=== PATIENT | female | born 1970 | race Caucasian/White ===

== ENCOUNTER 2023-06-02 12:54 | Inpatient (IN) ==
[2023-06-02] MEDS: ONDANSETRON INJ 2 MG/ML 2 ML VIAL IV STA ×2 (13:29→15:07)
[2023-06-02] MEDS: SODIUM CHLORIDE 0.9% 1,000 ML IV SCH (13:29)
[2023-06-02 13:38] LABS: Appearance Urine Clear (Clear); Bacteria Urine Automated Negative (Negative); Bilirubin Urine Negative (Negative); Blood Urine Negative (Negative); Cast Urine Automated 0 /lpf (0-5); Color Urine Yellow; Glucose Urine UA Negative (Negative); Ketones Urine Trace (Negative); Leukocyte Esterase Urine Negative (Negative); Nitrite Urine Negative (Negative); Protein Urine 1+ (Negative); RBC Urine Automated 0-4 /hpf (0-4); Specific Gravity Urine 1.021 (1.000-1.030); Urobilinogen Urine Negative (Negative); WBC Urine Automated 0 /hpf (0-5); pH Urine 6.5 (4.5-7.5)
[2023-06-02 13:46] LABS: Basophils # (auto) 0.02 K/uL (0.00-0.20); Basophils % (auto) 0.3 %; Eosinophils # (auto) 0.05 K/uL (0.00-0.50); Eosinophils % (auto) 0.7 %; Hemoglobin 13.2 g/dl (12.0-16.0); Immature Granulocytes # (auto) 0.03 K/uL (0.01-0.20); Immature Granulocytes % (auto) 0.4 %; Lymphocytes # (auto) 1.51 K/uL (1.20-3.40); Lymphocytes % (auto) 20.5 %; Mean Corpuscular Hemoglobin 31.6 pg (25.0-34.0); Mean Corpuscular Hgb Conc 33.8 g/dL (32.0-36.0); Mean Corpuscular Volume 93.3 fL (80.0-100.0); Mean Platelet Volume 10.8 fL (9.4-12.4); Monocytes % (auto) 5.4 %; Neutrophils # (auto) 5.34 K/uL (1.40-6.50); Neutrophils % (auto) 72.7 %; Platelet Count 279 K/uL (130-400); RDW Coefficient of Variation 12.4 % (11.5-14.5); RDW Standard Deviation 42.4 fL (36.4-46.3); Red Blood Count 4.18 M/uL (4.20-5.40); White Blood Count 7.35 K/ul (4.8-10.8)
[2023-06-02 14:02] LABS: BUN Creatinine Ratio 16.7 (10-20); Calcium 10.1 mg/dl (8.6-10.3); Creatinine Clr Calc Pharmacy 87.1 ml/min; Est GFR (African American) 101.3 ml/min; Est GFR (Non-African American) 87.4 ml/min; Potassium 4.1 mmol/L (3.5-5.1)
--- NOTE | 2023-06-02 14:04 | Emergency Department Note ---
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 She had Whipple surgery in 2018 done in [facility] in [place] she still follows with them. She said 6 months to 1 year after the surgery. she had a pelvic mass that was treated with a gamma knife. She is been cancer free for 6 years since then. She moved here in November and is followed by [facility] provider. She woke up this morning at 630 and had epigastric and back pain she has vomited twice has been yellowish-green and has had some nausea. She had a similar episode last year in August and was diagnosed with a partial bowel obstruction likely due to adhesions at the time. She had did not have a surgery at the time. Denies fever. She has had pancreatitis in the past as well. Last bowel movement this morning look normal. No chest pain or shortness of breath. No fall or trauma or injury. No urinary symptoms such as dysuria or hematuria. She is postmenopausal Home Medications Medication Instructions Recorded Confirmed Type Lactobacillus acidophilus 1 1,000 mmu cells PO DAILY 03/04/23 06/02/23 History billion cell capsule (Probiotic Gold Acidophilus) black seed 1,250 mg PO DAILY 03/04/23 06/02/23 History cholecalciferol (vitamin D3) 50 50 mcg PO DAILY 03/04/23 06/02/23 History mcg (2,000 unit) capsule krill oil 500 mg capsule 500 mg PO BID 03/04/23 06/02/23 History zsvisv-[id number] 2 cap PO QID 03/04/23 06/02/23 History 36,000-114,000-180,000 unit capsule,delay rel (Creon) multivitamin (Multiple Vitamins 1 tab PO DAILY 03/04/23 06/02/23 History tablet) pantoprazole 40 mg tablet,delayed 40 mg PO BID PRN Other 03/04/23 06/02/23 History release Allergies Allergy/AdvReac Type Severity Reaction Status Date / Time Penicillins AdvReac Intermediate unsure Verified 03/04/23 07:51 Past Med/Surg History Medical History Kidney congenitally absent, right Pancreatitis April 2015 Discoid lupus Basal cell carcinoma S/P MOHs (L ankle and L upper back 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 diagnosis - Ampulla of Vater - s/p whipple 2018 Bone Met L posterior Pelvis 2020 - s/p cyberknife Surgical History History of vein stripping 2006 History of Whipple procedure Dec 2017 Family History Mother Non-Hodgkin lymphoma Heart disease Father Alcohol abuse Brain tumor Social History Smoking Status: Never smoker Tobacco Type: Cigarettes Age Started Using Tobacco: 17; Age Quit Using Tobacco: 47; packs per day: 0.50; Second Hand Exposure: No; Do You Dip or Chew Tobacco: No; Tobacco Cessation Education Requested by Patient: No Hx Alcohol Use: No Hx Substance Use: No Preferred Language: Mexican Communication Ability: Effective Visual Impairment: Diminished Hearing Ability: Normal Metaphysics Teacher Required: No Beliefs That Will Affect Care: None marital status: Current Living Situation: Spouse current occupational status: retired 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 Other Information That Helps Us Care for You: No Feels Safe at Home: No Is there a partner from a previous relationship who is making you feel unsafe now?: No Any Concerns about Your Family Situation: No Safety Concerns: Feels Safe At This Time Childhood Exposure to Second-Hand Smoke: Yes Diet: regular caffeine: Yes Dental Care, Regularly: No Physical Activity Frequency: Daily Physical Activity Frequency Comment: active lifestyle Seatbelt Use: always Sunscreen Use: Yes Do you think of yourself as: straight/heterosexual Assistive Devices: Glasses Review of Systems A total of 10 systems reviewed and were otherwise negative Physical Exam Vital Signs Vital Signs - 24 hr 06/02/23 12:58 06/02/23 15:13 06/02/23 15:15 Temperature 36.4 C L Temperature Source Temporal Artery Scan Pulse Rate 81 58 L Pulse Rate [Finger] 61 Respiratory Rate 16 18 Respiratory Effort / Characteristics Non-Labored Spontaneous Non-Labored Spontaneous Respiratory Depth Normal Normal Respiratory Pattern Regular Blood Pressure 179/93 H Blood Pressure [Right Arm] 152/85 H Blood Pressure Mean 121 Blood Pressure Mean [Right Arm] 107 Blood Pressure Position [Right Arm] Sitting Pulse Oximetry 100 100 Oxygen Delivery Method Room Air Room Air Sepsis Recent Fever Within 48 Hours No Sepsis New/Unexplained Change in Mental Status No Sepsis Action Taken by Nursing No Action Required General: Well developed well nourished middle-age female who appears in no acute distress, breathing comfortably on room air. Normal speech HEENT: Normal cephalic atraumatic. Pupils are equal round and reactive to light. Extraocular movements are intact. Oropharynx is pink with moist mucous membranes. No swelling of the mouth lips or tongue. Neck: Supple with a midline trachea. No meningeal signs or stiffness, no JVD or bruits. No Stridor. Chest: Clear to auscultation bilaterally. No wheezes or rhonchi. No increased work of breathing. Heart: Regular rate and rhythm without murmurs or gallops. Abdomen: Soft nontender, nondistended without rebound guarding or rigidity. Extremities: No cyanosis clubbing or edema. No calf tenderness or assymetry Spine/Back. Non tender to palpation. No CVA tenderness Skin: Good turgor without rashes. Neurologic exam: Cranial nerves two through 12 are intact. Motor and sensation are intact and symmetrical throughout. Course Administered Medications Lipase/Protease/Amylase (Pancreaze (Lipase 10,500u) Cap) 2 cap PO TID [facility] Stop: 07/02/23 20:59 Last Admin: 06/02/23 19:51 Dose: Not Given Documented By: ADZ Enoxaparin Sodium (Enoxaparin Inj 40 Mg/0.4 Ml Syr) 40 mg SQ Q24H LIZA Stop: 07/02/23 15:59 Last Admin: 06/02/23 16:16 Dose: 40 mg Documented By: SAHARA Hydromorphone HCl (Hydromorphone Inj 0.5 Mg/0.5 Ml Syr) 0.5 mg IV Q4H PRN PRN Reason: Moderate Pain (4,5,6) on NRS Stop: 06/16/23 15:36 Last Admin: 06/02/23 17:58 Dose: 0.5 mg Documented By: JACOBY Parenteral Electrolytes (Plasma-Lyte A Ph 7.4) 1,000 mls @ 150 mls/hr IV .Q6H40M LIZA Stop: 07/02/23 15:44 Last Admin: 06/02/23 16:16 Dose: 150 mls/hr Documented By: SAHARA Morphine Sulfate (Morphine Sulfate 2 Mg/Ml Carp) 2 mg IV NOW STA Stop: 06/02/23 19:45 Last Admin: 06/02/23 19:50 Dose: 2 mg Documented By: AYAAN Discontinued Medications Hydromorphone HCl (Hydromorphone Inj 1 Mg/Ml Syringe) 1 mg IV NOW STA Stop: 06/02/23 14:51 Last Admin: 06/02/23 15:06 Dose: 1 mg Documented By: JEEVAN Sodium Chloride (Nss) 1,000 mls @ 999 mls/hr IV .Q1H1M LIZA Stop: 06/02/23 14:30 Last Infusion: 06/02/23 14:48 Dose: Infused Documented By: Admin: 06/02/23 13:29 Dose: 999 mls/hr Documented By: BLAINE Sodium Chloride (Nss) 1,000 mls @ 999 mls/hr IV .Q1H1M ONE Stop: 06/02/23 15:50 Last Infusion: 06/02/23 16:15 Dose: Infused Documented By: Admin: 06/02/23 15:08 Dose: 999 mls/hr Documented By: JEEVAN Morphine Sulfate (Morphine Sulfate 2 Mg/Ml Carp) 2 mg IV NOW STA Stop: 06/02/23 13:59 Last Admin: 06/02/23 14:11 Dose: 2 mg Documented By: TODD Ondansetron HCl (Ondansetron Inj 2 Mg/Ml 2 Ml Vial) 4 mg IV NOW STA Stop: 06/02/23 13:20 Last Admin: 06/02/23 13:29 Dose: 4 mg Documented By: BLAINE Ondansetron HCl (Ondansetron Inj 2 Mg/Ml 2 Ml Vial) 4 mg IV NOW STA Stop: 06/02/23 14:51 Last Admin: 06/02/23 15:07 Dose: 4 mg Documented By: JEEVAN Medical Decision Making Differential Diagnosis Bowel obstruction, pancreatitis, infection, electrolyte or metabolic abnormality, cardiac disease, cancer related complication Medical Records Attestation: I reviewed the patient's medical records. Home Medications Current Medication List: was personally reviewed by me Laboratory Data Attestation: I reviewed the patient's lab results. 06/02/23 13:16 06/02/23 13:16 Lab Results 06/02/23 Range/Units 13:16 WBC 7.35 (4.8-10.8) K/ul RBC 4.18 L (4.20-5.40) M/uL Hgb 13.2 (12.0-16.0) g/dl Hct 39.0 (37.0-47.0) % MCV 93.3 (80.0-100.0) fL MCH 31.6 (25.0-34.0) pg MCHC 33.8 (32.0-36.0) g/dL RDW Std Deviation 42.4 (36.4-46.3) fL RDW Coeff of Filomena 12.4 (11.5-14.5) % Plt Count 279 (130-400) K/uL MPV 10.8 (9.4-12.4) fL Immature Gran % (Auto) 0.4 % Neut % (Auto) 72.7 % Lymph % (Auto) 20.5 % [place] % (Auto) 5.4 % Eos % (Auto) 0.7 % Baso % (Auto) 0.3 % Neut # (Auto) 5.34 (1.40-6.50) K/uL Lymph # (Auto) 1.51 (1.20-3.40) K/uL [place] # (Auto) 0.40 (0.11-0.59) K/uL Eos # (Auto) 0.05 (0.00-0.50) K/uL Baso # (Auto) 0.02 (0.00-0.20) K/uL Immature Gran # (Auto) 0.03 (0.01-0.20) K/uL Sodium 138 (136-145) mmol/L Potassium 4.1 (3.5-5.1) mmol/L Chloride 104 (98-107) mmol/L Carbon Dioxide 25 (21-32) mmol/L Anion Gap 9 (3-11) BUN 13 (6-23) mg/dl Creatinine 0.78 (0.6-1.2) mg/dl Est Cr Clr Drug Dosing 87.1 ml/min Est GFR ( Amer) 101.3 ml/min Est GFR (Non-Af Amer) 87.4 ml/min BUN/Creatinine Ratio 16.7 (10-20) Glucose 106 H (70-99(Fasting)) mg/dl Calcium 10.1 (8.6-10.3) mg/dl Total Bilirubin 0.3 (0.2-1.0) mg/dl AST 25 (13-39) U/L ALT 29 (7-52) U/L Alkaline Phosphatase 74 (34-104) U/L Troponin I High Sens 3.1 (0-14) pg/ml Total Protein 7.8 (6.0-8.3) gm/dl Albumin 5.2 H (3.4-5.0) gm/dl Globulin 2.6 (2.5-4.0) gm/dl Albumin/Globulin Ratio 2.0 (0.9-2) Triglycerides 123 (0-150) mg/dl Lipase 6383 H (11-82) U/L Urine Color Yellow Urine Appearance Clear (Clear) Urine pH 6.5 (4.5-7.5) Ur Specific [place] 1.021 (1.000-1.030) Urine Protein 1+ H (Negative) Urine Glucose (UA) Negative (Negative) Urine Ketones Trace H (Negative) Urine Blood Negative (Negative) Urine Nitrite Negative (Negative) Urine Bilirubin Negative (Negative) Urine Urobilinogen Negative (Negative) Ur Leukocyte Esterase Negative (Negative) Urine WBC (Auto) 0 (0-5) /hpf Urine RBC (Auto) 0-4 (0-4) /hpf U Hyaline Cast (Auto) 0 (0-5) /lpf U Epithel Cells (Auto) 5-10 H (0-5) /lpf Urine Bacteria (Auto) Negative (Negative) Imaging Data Attestation: I personally reviewed and interpreted this imaging study as follows: My Impression: CT abdomen pelvis without contrastthere is no bowel obstruction but there appears to be acute pancreatitis Radiologist's Impression: Abdomen/Pelvis CT 06/02/23 13:[address] WITHOUT CONTRAST CT DOSE: 795.63 mGy.cm HISTORY: Epigastric pain. eval for bowel obst. Hx of Whipple. 1 kidney TECHNIQUE: Multiaxial CT images of the abdomen and pelvis were performed without contrast. A dose lowering technique was utilized adhering to the principles of ALARA. COMPARISON STUDY: None. FINDINGS: There is a punctate calcified granuloma within the right lower lobe. The left lung base is clear. No pneumoperitoneum. No pneumatosis. No suspicious lytic or blastic osseous lesions. No acute fractures. A 1.2 cm lucent lesion within the T12 vertebral body is likely benign. Difficult evaluation of the abdominal structures due to the postoperative change and lack of intravenous/oral contrast. There are postoperative changes consistent with prior Whipple procedure. There is mild edema/inflammatory change surrounding the residual pancreatic body. This suggests a mild acute pancreatitis. No definite loculated fluid collections to suggest a pseudocyst or abscess in this noncontrast study. Hazy appearance to the few prominent mesenteric lymph nodes inferior to the pancreas is likely reactive. These remain subcentimeter in short axis diameter. There is mild pneumobilia likely related to the prior Whipple procedure. No definite hepatic or splenic masses. Calcified granuloma seen within the spleen. The adrenal glands and left kidney are unremarkable. No left- sided hydronephrosis. There is a severely atrophic right kidney which is likely in nonfunctional. There is a left circumaortic renal vein. Subcentimeter retroperitoneal lymph nodes do not meet CT criteria for pathologic involvement. Mild calcified plaque within the normal caliber abdominal aorta. No pelvic lymphadenopathy or pelvic free fluid. The unenhanced bladder and uterus are unremarkable. Suggestion of a 1.1 cm Bartholin's duct cyst within the lower vagina. This is best seen on image 331. Suboptimal evaluation for bowel pathology due to the lack of intravenous and oral contrast. However, there is no definite bowel wall thickening or obstruction. Normal appendix. IMPRESSION: 1. Suboptimal evaluation of the abdomen due to the prior Whipple procedure and lack of intravenous/oral contrast. 2. There is mild inflammatory change/edema surrounding the residual pancreatic body. This likely represents an acute pancreatitis. Recommend correlation with pancreatic enzymes. 3. No definite bowel wall thickening or obstruction. 4. Severely atrophic right kidney which is likely nonfunctioning. 5. Normal appendix. ACT 112: Negative or not required by law. Electronically signed by: Luca Begum M.D. 06/02/2023 2:46 PM ECG Data Attestation: I personally reviewed and interpreted this ECG as follows: Indication: + abdominal pain Rate (beats per minute): 59 Rhythm: + sinus bradycardia ECG Intervals/blocks: + Normal QRS, + Normal QT and + Normal AR ECG [place]: + Normal ECG ST segments: + Normal ST segments ECG Findings: no PACs or no PVCs Comparison ECG Date: no prior available MDM Narrative This patient comes in as described above. She was placed in room C6. She had abdominal pain and vomiting. She has some mild tenderness in epigastric area. she has a complex medical history with a Whipple procedure in the past and has had adhesions before feels that this feels similar. IV access established was given Zofran 4 mg IV and 1 L IV normal saline bolus she seems to be doing a bit better. She was given morphine 2 mg IV for pain she is not driving. I did order CAT scan in addition to multiple labs and EKG. I did a CAT scan without contrast given her history of 1 kidney. Her CAT scan shows findings consistent with pancreatitis with no bowel obstruction her lipase is markedly elevated. She was given additional IV fluid bolus as well as Dilaudid 1 mg IV as she continued pain and nausea she was given additional Zofran IV. She does not think she has infection or sepsis at this point. There is nothing suggest acute cardiac event. I do think she needs to be admitted for IV fluids and hydration, bowel rest, pain management and further treatment evaluation I have discussed the case at length and consultation with Dr. Mejia, from the [facility] hospitalist group. and he will see her in the ER for these measures. Continuous cardiac monitoring: Orders placed in EMR for continuous medical cost consultant call upon my evaluation patient noted to be in normal sinus rhythm with a rate of 60 Impression & Plan Acute pancreatitis, Epigastric abdominal pain, History of Whipple procedure, History of GI tract cancer, Nausea & vomiting Discharge Plan Visit Data Chief Complaint: Abdominal Pain Stated Complaint: ABD PAIN ED Provider: Jayme Romo Discharge Problem: Acute pancreatitis, Epigastric abdominal pain, History of Whipple procedure, History of GI tract cancer, Nausea & vomiting Patient Disposition: Admitted As Inpatient Discharge Instructions Interventions: ED Discharge Assessment Last Done: 06/02/23 17:18 Discharge Problem: Acute pancreatitis Qualifiers: Pancreatitis type: unspecified pancreatitis type Acute pancreatitis complication: unspecified Qualified Code(s): K85.90 - Acute pancreatitis without necrosis or infection, unspecified Nausea & vomiting Qualifiers: Vomiting type: unspecified Qualified Code(s): R11.2 - Nausea with vomiting, unspecified
[2023-06-02] MEDS: MoRPHine SULFATE 2 MG/ML CARP IV STA ×2 (14:11→19:50)
[2023-06-02 14:18] LABS: Albumin Level 5.2 gm/dl (3.4-5.0); Bilirubin,Total 0.3 mg/dl (0.2-1.0); Globulin 2.6 gm/dl (2.5-4.0); Total Protein 7.8 gm/dl (6.0-8.3)
--- NOTE | 2023-06-02 14:47 | CT Scan Report ---
ABDOMEN AND PELVIS CT WITHOUT CONTRAST CT DOSE: 795.63 mGy.cm HISTORY: Epigastric pain. eval for bowel obst. Hx of Whipple. 1 kidney TECHNIQUE: Multiaxial CT images of the abdomen and pelvis were performed without contrast. A dose lo wering technique was utilized adhering to the principles of ALARA. COMPARISON STUDY: None. FINDINGS: There is a punctate calcified granuloma within the right lower lobe. The left lung base is clear. No pneumoperitoneum. No pneumatosis. No suspicious lytic or blastic osseous lesions. No acute fractures. A 1.2 cm lucent lesion within the T12 vertebral body is likely benign. Difficult evaluatio n of the abdominal structures due to the postoperative change and lack of intravenous/oral contrast. There are postoperative changes consistent with prior Whipple procedure. There is mild edema/inflamma tory change surrounding the residual pancreatic body. This suggests a mild acute pancreatitis. No def inite loculated fluid collections to suggest a pseudocyst or abscess in this noncontrast study. Hazy appearance to the few prominent mesenteric lymph nodes inferior to the pancreas is likely reactive. T hese remain subcentimeter in short axis diameter. There is mild pneumobilia likely related to the mago or Whipple procedure. No definite hepatic or splenic masses. Calcified granuloma seen within the sple en. The adrenal glands and left kidney are unremarkable. No left-sided hydronephrosis. There is a sev erely atrophic right kidney which is likely in nonfunctional. There is a left circumaortic renal vein . Subcentimeter retroperitoneal lymph nodes do not meet CT criteria for pathologic involvement. Mild calcified plaque within the normal caliber abdominal aorta. No pelvic lymphadenopathy or pelvic free fluid. The unenhanced bladder and uterus are unremarkable. Suggestion of a 1.1 cm [address]'s duct [address] st within the lower vagina. This is best seen on image 331. Suboptimal evaluation for bowel pathology due to the lack of intravenous and oral contrast. However, there is no definite bowel wall thickenin g or obstruction. Normal appendix. IMPRESSION: 1. Suboptimal evaluation of the abdomen due to the prior Whipple procedure and lack of intravenous/or al contrast. 2. There is mild inflammatory change/edema surrounding the residual pancreatic body. This likely repr esents an acute pancreatitis. Recommend correlation with pancreatic enzymes. 3. No definite bowel wall thickening or obstruction. 4. Severely atrophic right kidney which is likely nonfunctioning. 5. Normal appendix. ACT 112: Negative or not required by law. Electronically signed by: Luca Begum M.D. 06/02/2023 2:46 PM
[2023-06-02] MEDS: HYDROmorphone INJ 1 MG/ML SYRINGE IV STA (15:06)
[2023-06-02] MEDS: SODIUM CHLORIDE 0.9% 1,000 ML IV ONE (15:08)
--- NOTE | 2023-06-02 15:39 | History & Physical Report ---
Date of Service June 02, 2023 Assessment & Plan (1) Recurrent acute pancreatitis: Plan: Acute pancreatitis History of pancreatitis previously with alcohol use, denies recent alcohol use History of Whipple 2018 for neuroendocrine tumor with solitary bone met and no other known metastasis -CT without obstructive findings. Mild inflammatory change of the residual pancreatic body suspicious for acute pancreatitis. Suboptimal study due to lack of contrast. No obvious malignant recurrence. Lipase is elevated. - Has serially q6m CT scan with contrast, next due June 30. No history of cancer recurrence so far. N.p.o., may advance to clears if pain-free and as clinically tolerated IV FM. Clinically near euvolemic, will continue LR at 150 cc/h Zofran, scaled analgesic pain control -No alcohol use -Triglycerides are pending -Calcium is normal No evidence of superimposed infection Continue Creon capsules opened into food with meals once advanced for pancreatic insufficiency History of SBO, 08/2022 that resolved with conservative management, was located at GJ anastomosis. 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 Creatinine is at baseline. Avoid nephrotoxins. No acute change in management at this time (7) History of GI tract cancer: Plan: History of neuroendocrine tumor s/p Whipple with single bony met treated with CyberKnife. No known recurrence. Follows every 6 months with oncology. 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 2017 had pancreatis. 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 Had a whipple. Since then has had periodic pancreatitis, last episode was in August. Has had pancreatitis associated with SBO ?adhesions. Resolved with conservative management. Lipase was up at that time but not this high. Quit ETOH 2016 No unusual dietary intact Current pain started abruptly at 7am this morning BM this morning, brown. No kerrie colored, bloody, dark, or black stools. No fevers. Did feel cold and have some chills earlier x1. Vomited yellowish-greenish x1. Currently mildly nauseus Ab pain is epigastric, midline No chest pain, no chest pressure. +back pain. No shortness of breath, was splinting breathing earlier but this improved after pain control in the ER. Hx of discoid lupus, plaquenil was d/tre 2 years ago Takes creon as whole capsules with food normally. Just moved here in . Medical History: Reviewed Medications: Reviewed Surgical History: Reviewed Family history: Reviewed Allergies: Reviewed Social History: Reviewed Code Status: Full Code Allergies Allergy/AdvReac Type Severity Reaction Status Date / Time Penicillins AdvReac Intermediate unsure Verified 03/04/23 07:51 Home Medications Medication Instructions Recorded Confirmed Type Lactobacillus acidophilus 1 1,000 mmu cells PO DAILY 03/04/23 03/04/23 History billion cell capsule (Probiotic Gold Acidophilus) black seed PO DAILY 03/04/23 History cholecalciferol (vitamin D3) 50 50 mcg PO DAILY 03/04/23 03/04/23 History mcg (2,000 unit) capsule krill oil 500 mg capsule mg PO BID 03/04/23 03/04/23 History yljqha-knyepcbo-fwvwwft 2 cap PO TID 03/04/23 03/04/23 History 36,000-114,000-180,000 unit capsule,delay rel (Creon) multivitamin (Multiple Vitamins 1 tab PO DAILY 03/04/23 03/04/23 History tablet) pantoprazole 40 mg tablet,delayed 40 mg PO BID PRN 03/04/23 03/04/23 History release Past Med/Surg History Medical History Kidney congenitally absent, right Pancreatitis April 2015 Discoid lupus Basal cell carcinoma S/P MOHs (L ankle and L upper back 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 diagnosis - Ampulla of Vater - s/p whipple 2018 Bone Met L posterior Pelvis 2019 - s/p cyberknife Surgical History History of vein stripping 2006 History of Whipple procedure Dec 2017 Family History Mother Non-Hodgkin lymphoma Heart disease Father Alcohol abuse Brain tumor Social History Smoking Status: Former smoker Tobacco Type: Cigarettes Age Started Using Tobacco: 17; Age Quit Using Tobacco: 47; packs per day: 0.50; Second Hand Exposure: No; Do You Dip or Chew Tobacco: No; Hx Alcohol Use: No Hx Substance Use: No Preferred Language: Korean Communication Ability: Effective Visual Impairment: Diminished Hearing Ability: Normal Bit Tapper Required: No marital status: Current Living Situation: Spouse current occupational status: retired 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 NAD. Cooperative. HEENT: Atraumatic, normocephalic. Vision/hearing grossly intact Pulm: CTAB A&P. -wheezes, -rales, -rhonchi. Symmetrical chest rise. No increased work of breathing. No respiratory distress. Cardiac: RRR, -mrg. Radial pulses intact and symmetrical. Abdominal: +TTP in epigastrum. No rebound. BS present. Ext: warm, dry. Results & Data Results & Data Vital Signs (Past 12 Hours) Vital Signs Temp Pulse Pulse Resp BP BP Pulse Ox 06/02/23 15:15 61 18 152/85 H 100 06/02/23 15:13 58 L 06/02/23 12:58 36.4 C L 81 16 179/93 H 100 O2 Del Method 06/02/23 15:15 Room Air 06/02/23 15:13 06/02/23 12:58 Room Air PG Care Time/CCT Total # of Minutes Spent Total Time Spent with Patient: Total time spent is greater than 50% in coordination of care (as documented) at patient's floor/unit and/or counseling patient: Coding Level of Care Code 45968 INT INP/OBS CARE MIN Diagnoses Recurrent acute pancreatitis K85.90 History of Whipple procedure Z90.410; Z90.49 Hypertension I10 GERD (gastroesophageal reflux disease) K21.9 Lupus M32.9 Atrophic kidney N26.1 History of GI tract cancer Z85.00
[2023-06-02 15:45] LABS: Troponin I High Sensitivity 3.1 pg/ml (0-14)
[2023-06-02] MEDS: PLASMA-LYTE A 1,000 ML IV SCH (16:16)
[2023-06-02] MEDS: ENOXAPARIN INJ 40 MG/0.4 ML SYR SQ SCH (16:16)
[2023-06-02] MEDS: HYDROmorphone INJ 0.5 MG/0.5 ML SYR IV PRN (17:58)
[2023-06-02] MEDS: PANCREAZE (LIPASE 10,500U) CAP PO SCH (19:51)
[2023-06-02] MEDS: HYDROmorphone INJ 1 MG/ML SYRINGE IV PRN (22:25)
[2023-06-03] MEDS: ONDANSETRON INJ 2 MG/ML 2 ML VIAL IV PRN (04:15)
--- NOTE | 2023-06-03 05:19 | Electrocardiogram Report ---
Test Reason : Blood Pressure : / mmHG Vent. Rate : 059 BPM Atrial Rate : 059 BPM P-R Int : 160 ms QRS Dur : 130 ms QT Int : 390 ms P-R-T Axes : 000 060 052 degrees QTc Int : 386 ms Poor data quality, interpretation may be adversely affected Sinus bradycardia Non-specific intra-ventricular conduction block Cannot rule out Anteroseptal infarct , age undetermined Abnormal ECG No previous ECGs available Confirmed by Ty Macias ([id number]) on 06/03/2023 5:19:15 AM Referred By: REFERRED SELF Confirmed By:Ty Macias
[2023-06-03] MEDS: MULTIVITAMIN TAB PO SCH (07:34)
[2023-06-03 07:37] LABS: Basophils # (auto) 0.01 K/uL (0.00-0.20); Basophils % (auto) 0.2 %; Eosinophils # (auto) 0.02 K/uL (0.00-0.50); Eosinophils % (auto) 0.3 %; Hematocrit (blood only) 33.4 % (37.0-47.0); Hemoglobin 10.8 g/dl (12.0-16.0); Immature Granulocytes # (auto) 0.01 K/uL (0.01-0.20); Immature Granulocytes % (auto) 0.2 %; Lymphocytes # (auto) 1.13 K/uL (1.20-3.40); Lymphocytes % (auto) 19.1 %; Mean Corpuscular Hemoglobin 30.7 pg (25.0-34.0); Mean Corpuscular Hgb Conc 32.3 g/dL (32.0-36.0); Mean Corpuscular Volume 94.9 fL (80.0-100.0); Mean Platelet Volume 10.8 fL (9.4-12.4); Monocytes # (auto) 0.32 K/uL (0.11-0.59); Monocytes % (auto) 5.4 %; Neutrophils # (auto) 4.42 K/uL (1.40-6.50); Neutrophils % (auto) 74.8 %; Platelet Count 222 K/uL (130-400); RDW Coefficient of Variation 12.5 % (11.5-14.5); RDW Standard Deviation 43.6 fL (36.4-46.3); Red Blood Count 3.52 M/uL (4.20-5.40); White Blood Count 5.91 K/ul (4.8-10.8)
[2023-06-03 07:59] LABS: Total Protein 5.7 gm/dl (6.0-8.3)
[2023-06-03 09:50] LABS: Albumin Level 3.8 gm/dl (3.4-5.0); BUN Creatinine Ratio 11.3 (10-20); Bilirubin,Total 0.3 mg/dl (0.2-1.0); Calcium 8.6 mg/dl (8.6-10.3); Creatinine Clr Calc Pharmacy 109.6 ml/min; Est GFR (African American) 120.2 ml/min; Est GFR (Non-African American) 103.7 ml/min; Globulin 1.9 gm/dl (2.5-4.0); Potassium 3.7 mmol/L (3.5-5.1)
[2023-06-03] MEDS ORDERED: PROCHLORPERAZINE 10 MG in SYRINGE 8 ML IV PRN (10:52)
[2023-06-03] MEDS ORDERED: PROMETHAZINE HCL 6.25 MG in SODIUM CHLORIDE 0.9% 50 ML IV PRN (10:52)
[2023-06-03] MEDS ORDERED: FAMOTIDINE 200 MG/20 ML VIAL IV SCH (11:00)
[2023-06-03] MEDS: ONDANSETRON INJ 2 MG/ML 2 ML VIAL IV SCH (11:15)
[2023-06-03] MEDS: FAMOTIDINE 20 MG in SYRINGE 3 ML IV SCH (12:01)
[2023-06-03] MEDS: ACETAMINOPHEN 500 MG TAB PO PRN (16:25)
--- NOTE | 2023-06-03 18:55 | Hospitalist Progress Note ---
Date of Service June 03, 2023 Assessment & Plan (1) Recurrent acute pancreatitis: Plan: Acute pancreatitis History of pancreatitis previously with alcohol use, denies recent alcohol use History of Whipple 2018 for neuroendocrine tumor with solitary bone met and no other known metastasis -pain tolerable, nausea not - escalate nausea meds -arrange outpt GI follow up - doubt there is a cancer recurrence but will ask for oncology/GI follow up for completeness -continue IVF - appears adequately resuscitated -clear liquid diet (2) History of Whipple procedure: Plan: as noted (3) Hypertension: Plan: Hypertension Intolerant of AMANDA in the past due to cough 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 Creatinine is at baseline. Avoid nephrotoxins. No acute change in management at this time (7) History of GI tract cancer: Plan: History of neuroendocrine tumor s/p Whipple with single bony met treated with CyberKnife. No known recurrence. Follows every 6 months with oncology. No chemo, see above otherwise Plan DVT prophylaxis: Lovenox Disposition: anticipate being able to go home CODE STATUS: Full Admission and Anticipated Discharge Date Admission Date: June 02, 2023 Subjective Pain under tolerable control with pain medsnotes dose seems to relieve the pain and duration is appropriate that she is not left in pain before she is due for her next dose. Nausea is still fairly uncontrolled. Has had prior hospitalizations post Whipplemost recently small bowel obstruction. 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 Review of Systems Review of Systems: All systems reviewed & are unremarkable except as noted in HPI & below Physical Exam Physical Exam: aao pleasant but appearing quite nauseated. heent nc at mmm breathing unlabored no accessory muscles good effort abd soft nd no guarding/rigidity is quite tender L paraspinals mid Tspine tender - pressure helps w nausea some. neuro no focal deficits Results & Data Results & Data Vital Signs (Past 12 Hours) Vital Signs Temp Pulse Resp BP Pulse Ox O2 Del Method 06/03/23 15:15 98.4 F 67 16 145/73 H 96 Room Air 06/03/23 06:58 98.4 F 77 16 127/74 94 Room Air PG Care Time/CCT Total # of Minutes Spent Total Time Spent with Patient: Total time spent is greater than 50% in coordination of care (as documented) at patient's floor/unit and/or counseling patient: Coding Level of Care Code 87711 SUB INP/OBS CARE 3/50MIN Diagnoses Recurrent acute pancreatitis K85.90 History of Whipple procedure Z90.410; Z90.49 Hypertension I10 GERD (gastroesophageal reflux disease) K21.9 Lupus M32.9 Atrophic kidney N26.1 History of GI tract cancer Z85.00
[2023-06-04 06:56] LABS: Basophils # (auto) 0.01 K/uL (0.00-0.20); Basophils % (auto) 0.2 %; Eosinophils # (auto) 0.03 K/uL (0.00-0.50); Eosinophils % (auto) 0.7 %; Hemoglobin 10.8 g/dl (12.0-16.0); Immature Granulocytes # (auto) 0.01 K/uL (0.01-0.20); Immature Granulocytes % (auto) 0.2 %; Lymphocytes % (auto) 22.9 %; Mean Corpuscular Hemoglobin 31.5 pg (25.0-34.0); Mean Corpuscular Hgb Conc 33.8 g/dL (32.0-36.0); Mean Corpuscular Volume 93.3 fL (80.0-100.0); Mean Platelet Volume 10.2 fL (9.4-12.4); Monocytes % (auto) 6.9 %; Neutrophils # (auto) 3.02 K/uL (1.40-6.50); Neutrophils % (auto) 69.1 %; Platelet Count 206 K/uL (130-400); RDW Coefficient of Variation 12.4 % (11.5-14.5); RDW Standard Deviation 42.5 fL (36.4-46.3); Red Blood Count 3.43 M/uL (4.20-5.40); White Blood Count 4.37 K/ul (4.8-10.8)
[2023-06-04 07:17] LABS: BUN Creatinine Ratio 5.9 (10-20); Calcium 8.9 mg/dl (8.6-10.3); Creatinine Clr Calc Pharmacy 99.9 ml/min; Est GFR (African American) 116.6 ml/min; Est GFR (Non-African American) 100.6 ml/min
[2023-06-04] MEDS: POLYETHYLENE (MIRALAX) 17 GM PACK PO PRN (09:52)
--- NOTE | 2023-06-04 10:16 | Hospitalist Progress Note ---
Date of Service June 04, 2023 Assessment & Plan (1) Recurrent acute pancreatitis: Plan: Acute pancreatitis History of pancreatitis previously with alcohol use, denies recent alcohol use History of Whipple 2018 for neuroendocrine tumor with solitary bone met and no other known metastasis - Pain and nausea well-controlled, will change anti-emetic meds to prn -arrange outpt GI follow up - doubt there is a cancer recurrence but will ask for oncology/GI follow up for completeness -continue IVF - appears adequately resuscitated - advanced to low fat diet, tolerated first meal, will continue to observe overnight, likely discharge tomorrow. 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 Creatinine is at baseline. Avoid nephrotoxins. No acute change in management at this time (7) History of GI tract cancer: Plan: History of neuroendocrine tumor s/p Whipple with single bony met treated with CyberKnife. No known recurrence. Follows every 6 months with oncology. No chemo, see above otherwise Plan DVT prophylaxis: Lovenox Disposition: anticipate discharge to home tomorrow CODE STATUS: Full Admission and Anticipated Discharge Date Admission Date: June 02, 2023 Supervising Physician Co-Signing Physician Notes I personally examined the patient and verified all black points of history and exam, discussed case, and agree with decision making with Dr Boyd Feeling much betterstill has some epigastric region pain. Clear liquids going down well. Nausea improved. Pain overall under better control as well. Vitals noted, in general she is awake and alert pleasant no distress. HEENT normocephalic atraumatic mucous membranes moist. Breathing unlabored no accessory muscle use good effort. Abdomen soft fairly exquisite epigastric tenderness but no guarding rebound or rigidity. Acute pancreatitisimproving. Advance diet. With stomach tendernesscontinue to follow into tomorrow at least, hopefully home soon. Outpatient GI follow-up. Otherwise as above. DVT prophylaxisLovenox Subjective Patient evaluated at bedside this morning, denies current abdominal pain, nausea/vomiting, tolerating clear liquids. Denies fever/chills. Review of Systems Review of Systems: as per HPI Physical Exam Constitutional: WD/WN, vitals as above Neck: trachea midline, no thyromegaly Respiratory: normal respiratory effort, lungs clear to auscultation Cardiovascular: RRR, no murmur, no edema Gastrointestinal (Abdomen): mild tenderness to palpation over LUQ of abdomen, otherwise non-tender. bowel sounds intact. Psychiatric: A+Ox3, euthymic affect Results & Data Results & Data Vital Signs (Past 12 Hours) Vital Signs Temp Pulse Resp BP Pulse Ox O2 Del Method 06/04/23 07:02 37.0 C 69 15 129/75 94 Room Air Resident Activity Tracking Resident Involvement: Resident Care Provided Care Provided: Adult Hospital Medicine
[2023-06-04] MEDS ORDERED: ONDANSETRON INJ 2 MG/ML 2 ML VIAL IV PRN (16:02)
--- NOTE | 2023-06-04 16:09 | Billing Data ---
Date of Service June 04, 2023 Coding Level of Care Code 09615 SUB INP/OBS CARE
[2023-06-05 07:12] LABS: Basophils # (auto) 0.01 K/uL (0.00-0.20); Basophils % (auto) 0.4 %; Eosinophils # (auto) 0.15 K/uL (0.00-0.50); Eosinophils % (auto) 5.4 %; Hematocrit (blood only) 31.9 % (37.0-47.0); Hemoglobin 10.3 g/dl (12.0-16.0); Immature Granulocytes # (auto) 0.01 K/uL (0.01-0.20); Immature Granulocytes % (auto) 0.4 %; Lymphocytes # (auto) 1.24 K/uL (1.20-3.40); Lymphocytes % (auto) 44.3 %; Mean Corpuscular Hemoglobin 30.7 pg (25.0-34.0); Mean Corpuscular Hgb Conc 32.3 g/dL (32.0-36.0); Mean Corpuscular Volume 95.2 fL (80.0-100.0); Mean Platelet Volume 10.9 fL (9.4-12.4); Monocytes # (auto) 0.31 K/uL (0.11-0.59); Monocytes % (auto) 11.1 %; Neutrophils # (auto) 1.08 K/uL (1.40-6.50); Neutrophils % (auto) 38.4 %; Platelet Count 201 K/uL (130-400); RDW Coefficient of Variation 12.4 % (11.5-14.5); Red Blood Count 3.35 M/uL (4.20-5.40)
[2023-06-05 07:22] LABS: BUN Creatinine Ratio 11.3 (10-20); Calcium 8.9 mg/dl (8.6-10.3); Creatinine Clr Calc Pharmacy 95.7 ml/min; Est GFR (African American) 113.5 ml/min; Est GFR (Non-African American) 97.9 ml/min; Potassium 4.1 mmol/L (3.5-5.1)
--- NOTE | 2023-06-05 09:20 | Discharge Summary ---
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 2017 had pancreatis. 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 Had a whipple. Since then has had periodic pancreatitis, last episode was in August. Has had pancreatitis associated with SBO ?adhesions. Resolved with conservative management. Lipase was up at that time but not this high. Quit ETOH 2016 No unusual dietary intact Current pain started abruptly at 7am this morning BM this morning, brown. No kerrie colored, bloody, dark, or black stools. No fevers. Did feel cold and have some chills earlier x1. Vomited yellowish-greenish x1. Currently mildly nauseus Ab pain is epigastric, midline No chest pain, no chest pressure. +back pain. No shortness of breath, was splinting breathing earlier but this improved after pain control in the ER. Hx of discoid lupus, plaquenil was d/tre 2 years ago Takes creon as whole capsules with food normally. Just moved here in . Medical History: Reviewed Medications: Reviewed Surgical History: Reviewed Family history: Reviewed Allergies: Reviewed Social History: Reviewed Code Status: Full Code Admission Exam Per Admitting Provider General: A&Ox3. NAD. Cooperative. HEENT: Atraumatic, normocephalic. Vision/hearing grossly intact Pulm: CTAB A&P. -wheezes, -rales, -rhonchi. Symmetrical chest rise. No increased work of breathing. No respiratory distress. Cardiac: RRR, -mrg. Radial pulses intact and symmetrical. Abdominal: +TTP in epigastrum. No rebound. BS present. Ext: warm, dry. Principal Diagnosis acute pancreatitis Discharge Exam Constitutional WD/WN, vitals as above Neck trachea midline, no thyromegaly Respiratory normal respiratory effort, lungs clear to auscultation Cardiovascular RRR, no murmur, no edema Gastrointestinal (Abdomen) normal bowel sounds, soft, nontender, no hepatosplenomegaly Skin no rashes, warm and dry Psychiatric A+Ox3, euthymic affect Discharge Data Allergies Allergy/AdvReac Type Severity Reaction Status Date / Time Penicillins AdvReac Intermediate unsure Verified 03/04/23 07:51 Consultations 06/02/23 15:13 ED Decision to Admit Stat 06/03/23 18:50 HIM [Consult Health Information Management] Routine Ordered Studies 06/02/23 13:58 CT abd pelvis wo con Stat Hospital Course (1) Recurrent acute pancreatitis: (2) History of Whipple procedure: as noted (3) Hypertension: (4) GERD (gastroesophageal reflux disease): (5) Lupus: (6) Atrophic kidney: (7) History of GI tract cancer: Plan Acute pancreatitis Pt with history of pancreatitis previously with alcohol use, denies recent alcohol use, also history of Whipple 2018 for neuroendocrine tumor with solitary bone met and no other known metastasis Managed with IV fluids, pain and nausea well controlled. Recommend outpatient GI follow up - doubt there is a cancer recurrence but would recommend oncology/GI follow up for completeness Diet advanced as tolerated, stable on regular, low fat diet for 24 hours prior to discharge Atrophic right kidney Redemonstrated on CT, previously noted during workup for malignancy. Labs demonstrated Creatinine is at baseline. Total Time Total Time Spent Total Time Spent (In Minutes): <30 Discharge Plan Discharge Items Patient Disposition: Home - Self-Care Reason For Visit: PANCREATITIS Discharge Diagnosis: acute pancreatitis Activity: Resume your previous activity Non-emergency contact: Primary Care Provider Call non-emergency contact if: your symptoms worsen and your pain is not controlled Follow-up/Referrals: Vernon Angulo DO [Primary Care Provider] - Diet: Regular and Low Fat Addtl Attending Provider Instructions: You were admitted to the hospital due to acute pancreatitis. You were treated with IV fluids, anti-nausea medications, and brief bowel rest followed by diet reintroduction. Upon discharge, you may continue to advance your diet as tolerated. A discharge summary will be sent to your primary care physician to ensure continuity of care. Please bring this discharge summary with you to your next office appointment so that your provider can review it at that time. Medications: No changes were made to your medications. Your medication list has been reviewed and reconciled upon discharge to ensure accuracy and continuity of care. An updated list of all your medications is included with your hospital discharge paperwork. Please review this list closely and make note of any changes to your medications. Follow up appointments: - Make a follow up appointment with your PCP within the next week. It is very important that you follow up with them shortly after discharge from the hospital. - Keep all of your follow up appointments as already scheduled. If you cannot make an appointment, notify your provider. CONTACT YOUR PRIMARY CARE PROVIDER if you experience any of the following: - Difficulty following your treatment plan - Difficulty taking any of your medications CALL 911 OR GO TO THE EMERGENCY DEPARTMENT if you experience any of the following: - Sudden, severe abdominal pain or nausea/vomiting - Severe chest pain or chest pain that radiates to your jaw or arm - Sudden, severe shortness of breath or difficulty breathing Pending Studies at Discharge: No Stand-Alone Forms: My [facility] [employer], Smoking Cessation Medications and DC Order Prescriptions: Continued multivitamin [Multiple Vitamins] Tablet 1 tab PO DAILY Rx Instructions: unable to verify with pharmacy 06/02/23 Probiotic Gold Acidophilus 1 billion cell capsule 1,000 mmu cells PO DAILY Rx Instructions: unable to verify with pharmacy 06/02/23 krill oil 500 mg capsule 500 mg PO BID Rx Instructions: unable to verify with pharmacy 06/02/23 pantoprazole 40 mg tablet,delayed release (DR/EC) 40 mg PO BID PRN (Reason: Other) cholecalciferol (vitamin D3) 50 mcg (2,000 unit) capsule 50 mcg PO DAILY Rx Instructions: unable to verify with pharmacy 06/02/23 Creon 36,000-114,000- 180,000 unit capsule,delayed release(DR/EC) 2 cap PO QID Rx Instructions: per pharmacy its 2 cap QID instead of 2 caps TID administer with meals and/or snacks/2 tabs per meal and 2 with snacks black seed 1,250 mg 1,250 mg PO DAILY Rx Instructions: unable to verify with pharmacy 06/02/23 Discharge Orders: Discharge Order (Routine); Ordered 06/05/23 Ordered By: Donte Hale/Other Patient Handouts: Understanding Pancreatitis Admission Data Admit Date/Time: 06/02/23 15:49 Attending Provider: Cedric Thompson Admit Provider: Alex Duarte Primary Care Provider: Vernon Angulo Other Providers: Alex Duarte Other Interventions: Discharge Summary Assessment (RN) Last Done: 06/05/23 09:40 Supervising Physician Co-Signing Physician Notes I personally examined the patient and verified all black points of history and e xam, discussed case, and agree with decision making with Dr Boyd feeling better, eating well, would like to go home. Vitals noted, in general she is awake and alert pleasant no distress. HEENT normocephalic atraumatic mucous membranes moist. Breathing unlabored no accessory muscle use good effort. Abdomen soft epigastric region mildly tender as opposed to exquisitely yesterday, no guarding rebound or rigidity. Acute pancreatitisimproving. Safe/stable for home. Outpatient biliary GI follow-up just for reevaluation "eyes on" for pancreatitis status post Whipple procedure, outpatient oncology follow-up as well. DVT prophylaxisLovenox Resident Activity Tracking Resident Involvement: Resident Care Provided Care Provided: Adult Hospital Medicine
--- NOTE | 2023-06-05 15:39 | Billing Data ---
Date of Service June 05, 2023 Coding Level of Care Code 22624 IN/OBS DISCH 30 MIN/LESS
== END 2023-06-05 10:33 | disposition home or self-care (01) | DRG 440 ==
LOC: ED 12:54 → 3N 15:49 → SUATTDRO 15:49 → 3N 17:18
DX: I10 Essential (primary) hypertension; L93.0 Discoid lupus erythematosus; N26.1 Atrophy of kidney (terminal); Z88.0 Allergy status to penicillin; K85.90 Acute pancreatitis without necrosis or infection, unspecified; K21.9 Gastro-esophageal reflux disease without esophagitis; Z85.00 Personal history of malignant neoplasm of unspecified digestive organ

== ENCOUNTER 2023-08-06 17:54 | Inpatient (IN) ==
[2023-08-06] MEDS: ONDANSETRON INJ 2 MG/ML 2 ML VIAL IV STA ×2 (18:31→19:33)
[2023-08-06 18:47] LABS: Basophils # (auto) 0.01 K/uL (0.00-0.20); Basophils % (auto) 0.2 %; Eosinophils # (auto) 0.06 K/uL (0.00-0.50); Hematocrit (blood only) 38.8 % (37.0-47.0); Hemoglobin 12.5 g/dl (12.0-16.0); Immature Granulocytes # (auto) 0.02 K/uL (0.01-0.20); Immature Granulocytes % (auto) 0.3 %; Lymphocytes # (auto) 1.44 K/uL (1.20-3.40); Mean Corpuscular Hemoglobin 30.3 pg (25.0-34.0); Mean Corpuscular Hgb Conc 32.2 g/dL (32.0-36.0); Mean Corpuscular Volume 93.9 fL (80.0-100.0); Mean Platelet Volume 10.4 fL (9.4-12.4); Monocytes # (auto) 0.27 K/uL (0.11-0.59); Monocytes % (auto) 4.3 %; Neutrophils # (auto) 4.47 K/uL (1.40-6.50); Neutrophils % (auto) 71.2 %; Platelet Count 307 K/uL (130-400); RDW Coefficient of Variation 13.2 % (11.5-14.5); RDW Standard Deviation 44.6 fL (36.4-46.3); Red Blood Count 4.13 M/uL (4.20-5.40); White Blood Count 6.27 K/ul (4.8-10.8)
[2023-08-06 19:03] LABS: Calcium 9.9 mg/dl (8.6-10.3); Creatinine Clr Calc Pharmacy 82.1 ml/min; Est GFR (African American) 106.2 ml/min; Est GFR (Non-African American) 91.6 ml/min; Potassium 3.9 mmol/L (3.5-5.1)
[2023-08-06 19:21] LABS: Albumin Level 4.9 gm/dl (3.4-5.0); Bilirubin,Total 0.3 mg/dl (0.2-1.0); Globulin 2.5 gm/dl (2.5-4.0); Total Protein 7.4 gm/dl (6.0-8.3)
[2023-08-06] MEDS: HYDROmorphone INJ 1 MG/ML SYRINGE IV STA (19:33)
[2023-08-06 19:39] LABS: Appearance Urine Clear (Clear); Bilirubin Urine Negative (Negative); Blood Urine Negative (Negative); Color Urine Yellow; Glucose Urine UA Negative (Negative); Ketones Urine Negative (Negative); Leukocyte Esterase Urine Negative (Negative); Nitrite Urine Negative (Negative); Protein Urine Negative (Negative); Specific Gravity Urine 1.009 (1.000-1.030); Urobilinogen Urine Negative (Negative); pH Urine 6.5 (4.5-7.5)
[2023-08-06] MEDS: OPTIRAY 320 100ml IV ONE (19:52)
--- NOTE | 2023-08-06 19:58 | Emergency Department Note ---
Impression & Plan Acute recurrent pancreatitis ED Provider Note Provider: Michael Brito MD DATE OF SERVICE: 08/06/2023 CHIEF COMPLAINT: Epigastric pain to back, history of pancreatitis HISTORY OF PRESENT ILLNESS: Patient is a 54-year-old female history of prior GI cancer status post Whipple, pancreatitis, hypertension, and GERD presenting here today reporting onset of pain since around 3 AM last night in the epigastrium. Radiates to the back. Similar to prior episodes of pancreatitis. Did have some nausea. No significant vomiting today. No diarrhea. Pain in the epigastrium to the back a little bit towards the left back which again is consistent to prior pain. No trauma. Denies significant chest pain or shortness of breath. No fevers reported. Did have several episodes of pancreatitis just within the past 2 months here. States she has had pancreatitis numerous times before but the frequency has increased recently. Did have MRCP by her report without findings of mass recently. Is working to establish GI follow-up does not follow-up with them until October by her report. Patient does relay 1 time she was told that she had a bowel obstruction in the past when she had symptoms like this; denies significant distention. PAST MEDICAL HISTORY: As noted above MEDICATIONS: Reviewed home medications SOCIAL HISTORY: Former smoker PHYSICAL EXAM: GENERAL: alert and oriented appears somewhat uncomfortable Head: normocephalic and atraumatic EYES: No injection, discharge or icterus. NECK: Trachea midline. ENT: Mucous membranes pink and moist. LUNGS: Airway patent. No retractions. Breath sounds clear HEART: Regular rate and rhythm. No chest wall tenderness ABDOMEN: Soft some epigastric tenderness. No lower abdominal tenderness. No guarding. SKIN: Acyanotic, warm, dry, without rashes EXTREMITIES: Without swelling, tenderness or deformity NEUROLOGICAL: No focal deficits. No aphasia. No facial droop or slurred speech. Ambulatory. EK bpm normal sinus rhythm with sinus arrhythmia. No PVC or PAC. No acute ST segment elevation or depression. QTc 381. Patient's laboratory studies and imaging reviewed. Differential includes Appendicitis, infections, diverticulitis, UTI, obstruction, mesenteric ischemia, aortic pathology, inflammatory bowel disease, renal colic, PUD, pancreatitis, biliary pathology, hernia, volvulus, constipation, as well as other pathologies. IMPRESSION/MEDICAL DECISION MAKING: Reviewed prior patient records in the system including recent hospitalization here in June. Had a reassuring MRCP but prior history of Whipple. Blood work here is completed without leukocytosis or anemia. No significant lecture abnormality signs of renal dysfunction. LFTs are normal but lipase significantly elevated at 6300. Urinalysis negative. Will complete EKG and troponin abundance of caution but seems consistent with recurrent pancreatitis. Given that she has some history of obstruction and again has had some more frequent episodes although she had an MRCP about 6 weeks ago, did discuss with her and will complete a CT abdomen pelvis clued other acute intra-abdominal pathology. Given some IV fluids, Zofran, and Dilaudid which has helped with her pain in the past. Discussed with the likely need for admission for further care and she was in agreement with this. CT report per radiology with evidence of mild pancreatitis but no significant fluid collections. Patient's pain has improved some with pain medication here. Will bring in for bowel rest and hopeful improvement of her pancreatitis and pain control. Discussed with the hospitalist team. DIAGNOSIS: Recurrent pancreatitis DISPOSITION: Hospitalist will evaluate Patient was agreeable with this plan. Past Med/Surg History Medical History Kidney congenitally absent, right Pancreatitis April 2015 Discoid lupus Basal cell carcinoma S/P MOHs (L ankle and L upper back 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 diagnosis - Ampulla of Vater - s/p whipple 2018 Bone Met L posterior Pelvis 2019 - s/p cyberknife Surgical History History of vein stripping 2006 History of Whipple procedure Dec 2017 Family History Mother Non-Hodgkin lymphoma Heart disease Father Alcohol abuse Brain tumor Social History Smoking Status: Former smoker Tobacco Type: Cigarettes Age Started Using Tobacco: 17; Age Quit Using Tobacco: 47; packs per day: 0.50; Second Hand Exposure: No; Do You Dip or Chew Tobacco: No; Hx Alcohol Use: No Hx Substance Use: No Preferred Language: Malawian Communication Ability: Effective Visual Impairment: Diminished Hearing Ability: Normal Physician Allergist Immunologist Required: No Beliefs That Will Affect Care: None marital status: Current Living Situation: Spouse current occupational status: retired 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 Feels Safe at Home: Yes Safety Concerns: Feels Safe At This Time Childhood Exposure to Second-Hand Smoke: Yes Diet: regular caffeine: Yes Dental Care, Regularly: No Physical Activity Frequency: Daily Physical Activity Frequency Comment: active lifestyle Seatbelt Use: always Sunscreen Use: Yes Do you think of yourself as: straight/heterosexual Assistive Devices: None Allergies Allergies Allergy/AdvReac Type Severity Reaction Status Date / Time Penicillins AdvReac Intermediate unsure Verified 08/06/23 21:36 Home Meds Home Medications Medication Instructions Recorded Confirmed Lactobacillus acidophilus 1 1,000 mmu cells PO DAILY 03/04/23 08/06/23 billion cell capsule (Probiotic Gold Acidophilus) cholecalciferol (vitamin D3) 50 50 mcg PO DAILY 03/04/23 08/06/23 mcg (2,000 unit) capsule krill oil 500 mg capsule 500 mg PO BID 03/04/23 08/06/23 [id number]-[id number] 2 cap PO QID 03/04/23 08/06/23 36,000-114,000-180,000 unit capsule,delay rel (Creon) multivitamin (Multiple Vitamins 1 tab PO DAILY 03/04/23 08/06/23 tablet) pantoprazole 40 mg tablet,delayed 40 mg PO BID PRN Other 03/04/23 08/06/23 release acetaminophen 500 mg tablet 500 mg PO Q6H PRN Pain 07/08/23 08/06/23 (Tylenol Extra Strength) Previous Rx's Medication Instructions Recorded amlodipine 5 mg tablet 5 mg PO .once daily #90 tabs 06/08/23 Results & Data (ED) Vital Signs Vital Signs - 24 hr 08/06/23 18:24 Temperature 37 C Temperature Source Oral Pulse Rate 84 Respiratory Rate 20 Blood Pressure 169/88 H Blood Pressure Mean 115 Pulse Oximetry 97 Oxygen Delivery Method Room Air Sepsis Recent Fever Within 48 Hours No Sepsis New/Unexplained Change in Mental Status N/A Sepsis Action Taken by Nursing No Action Required Laboratory Data 08/06/23 18:33 08/06/23 18:33 Lab Results 08/06/23 08/06/23 08/06/23 Range/Units 18:33 18:33 19:26 WBC 6.27 (4.8-10.8) K/ul RBC 4.13 L (4.20-5.40) M/uL Hgb 12.5 (12.0-16.0) g/dl Hct 38.8 (37.0-47.0) % MCV 93.9 (80.0-100.0) fL MCH 30.3 (25.0-34.0) pg MCHC 32.2 (32.0-36.0) g/dL RDW Std Deviation 44.6 (36.4-46.3) fL RDW Coeff of Filomena 13.2 (11.5-14.5) % Plt Count 307 (130-400) K/uL MPV 10.4 (9.4-12.4) fL Immature Gran % (Auto) 0.3 % Neut % (Auto) 71.2 % Lymph % (Auto) 23.0 % [place] % (Auto) 4.3 % Eos % (Auto) 1.0 % Baso % (Auto) 0.2 % Neut # (Auto) 4.47 (1.40-6.50) K/uL Lymph # (Auto) 1.44 (1.20-3.40) K/uL [place] # (Auto) 0.27 (0.11-0.59) K/uL Eos # (Auto) 0.06 (0.00-0.50) K/uL Baso # (Auto) 0.01 (0.00-0.20) K/uL Immature Gran # (Auto) 0.02 (0.01-0.20) K/uL Sodium 138 (136-145) mmol/L Potassium 3.9 (3.5-5.1) mmol/L Chloride 106 (98-107) mmol/L Carbon Dioxide 24 (21-32) mmol/L Anion Gap 8 (3-11) BUN 9 (6-23) mg/dl Creatinine 0.75 (0.6-1.2) mg/dl Est Cr Clr Drug Dosing 82.1 ml/min Est GFR ( Amer) 106.2 ml/min Est GFR (Non-Af Amer) 91.6 ml/min BUN/Creatinine Ratio 12.0 (10-20) Glucose 143 H (70-99(Fasting)) mg/dl Calcium 9.9 (8.6-10.3) mg/dl Total Bilirubin 0.3 (0.2-1.0) mg/dl AST 19 (13-39) U/L ALT 21 (7-52) U/L Alkaline Phosphatase 66 (34-104) U/L Troponin I High Sens 4.1 (0-14) pg/ml Total Protein 7.4 (6.0-8.3) gm/dl Albumin 4.9 (3.4-5.0) gm/dl Globulin 2.5 (2.5-4.0) gm/dl Albumin/Globulin Ratio 2.0 (0.9-2) Triglycerides 122 Cancelled (0-150) mg/dl Lipase 6368 H (11-82) U/L Urine Color Yellow Urine Appearance Clear (Clear) Urine pH 6.5 (4.5-7.5) Ur Specific [place] 1.009 (1.000-1.030) Urine Protein Negative (Negative) Urine Glucose (UA) Negative (Negative) Urine Ketones Negative (Negative) Urine Blood Negative (Negative) Urine Nitrite Negative (Negative) Urine Bilirubin Negative (Negative) Urine Urobilinogen Negative (Negative) Ur Leukocyte Esterase Negative (Negative) Administered Medications Hydromorphone HCl (Hydromorphone Inj 0.5 Mg/0.5 Ml Syr) 0.5 mg IV Q4H PRN PRN Reason: Pain(5+) Stop: 08/20/23 20:59 Last Admin: 08/06/23 21:49 Dose: 0.5 mg Documented By: JONATHAN Lactated Ringer's (Lr) 1,000 mls @ 100 mls/hr IV .Q10H LIZA Stop: 08/07/23 17:59 Last Admin: 08/06/23 22:49 Dose: 100 mls/hr Documented By: NOVA Ondansetron HCl (Ondansetron Inj 2 Mg/Ml 2 Ml Vial) 4 mg IV Q6H PRN PRN Reason: Nausea And Vomiting Stop: 09/05/23 20:31 Last Admin: 08/06/23 21:52 Dose: 4 mg Documented By: JONATHAN Discontinued Medications Hydromorphone HCl (Hydromorphone Inj 1 Mg/Ml Syringe) 1 mg IV NOW STA Stop: 08/06/23 19:29 Last Admin: 08/06/23 19:33 Dose: 1 mg Documented By: JONATHAN Sodium Chloride (Nss) 1,000 mls @ 999 mls/hr IV .Q1H1M ONE Stop: 08/06/23 20:28 Last Infusion: 08/06/23 21:26 Dose: Infused Documented By: Admin: 08/06/23 20:15 Dose: 999 mls/hr Documented By: JONATHAN Lactated Ringer's (Lr) 1,000 mls @ 100 mls/hr IV .Q10H LIZA Stop: 08/07/23 16:44 Last Admin: 08/06/23 21:59 Dose: Not Given Documented By: JONATHAN Lactated Ringer's (Lr) 1,000 mls @ 999 mls/hr IV .Q1H1M ONE Stop: 08/06/23 22:01 Last Infusion: 08/06/23 22:34 Dose: Infused Documented By: Admin: 08/06/23 21:33 Dose: 999 mls/hr Documented By: JONATHAN Pantoprazole Sodium 40 mg/ (Syringe) 10 mls @ 5 mls/min IV NOW ONE Stop: 08/06/23 21:16 Last Admin: 08/06/23 21:33 Dose: 5 mls/min Documented By: JONATHAN Ioversol (Optiray 320 100ml) 89 ml IV ONCE ONE Stop: 08/06/23 19:52 Last Admin: 08/06/23 19:52 Dose: 89 ml Documented By: HAYDEN Ondansetron HCl (Ondansetron Inj 2 Mg/Ml 2 Ml Vial) 4 mg IV NOW STA Stop: 08/06/23 18:29 Last Admin: 08/06/23 18:31 Dose: 4 mg Documented By: ROMÁN Ondansetron HCl (Ondansetron Inj 2 Mg/Ml 2 Ml Vial) 4 mg IV NOW STA Stop: 08/06/23 19:29 Last Admin: 08/06/23 19:33 Dose: 4 mg Documented By: JONATHAN Imaging Data Radiologist's Impression: Abdomen/Pelvis CT 08/06/23 19:28 Exam(s): CT ABDOMEN + PELVIS With Contrast IV Amt: 89 ml optiray 320 EXAM: CT Abdomen and Pelvis With Intravenous Contrast CLINICAL HISTORY: Reason for exam: pancreatitis, pain. TECHNIQUE: Axial computed tomography images of the abdomen and pelvis with intravenous contrast. CTDI is 15.4 mGy and DLP is 737 mGy-cm. Automated exposure control was utilized for the study. A dose lowering technique was utilized adhering to the principles of ALARA. CONTRAST: Patient received 89 ml optiray 320 of IV contrast COMPARISON: MRI 06/17/2023 FINDINGS: ABDOMEN: Liver: Unremarkable. Gallbladder and bile ducts: Status post cholecystectomy. Pneumobilia present secondary to hepaticojejunostomy. Pancreas: Mild fat stranding around the pancreatic body and tail. Postsurgical changes in the region of the pancreatic head. No discrete mass. The pancreatic duct measures 3 mm, top normal. Spleen: Unremarkable. Adrenals: Unremarkable. Kidneys and ureters: Unremarkable. No obstructing stones. No hydronephrosis. Stomach and bowel: Postsurgical changes within the stomach. PELVIS: Appendix: No findings to suggest acute appendicitis. Bladder: Unremarkable. Reproductive: Unremarkable as visualized. ABDOMEN and PELVIS: Intraperitoneal space: Unremarkable. No free air. No significant fluid collection. Bones/joints: No acute fracture. Soft tissues: Unremarkable. Vasculature: Unremarkable. Lymph nodes: Unremarkable. IMPRESSION: Mild pancreatitis. Electronically signed by: David Schreiber MD 08/06/23 20:14 PM Discharge Plan Visit Data Chief Complaint: Abdominal Pain Stated Complaint: ABDOMINAL PAIN - POSS PANCREATITIS ED Provider: Michael Brito Discharge Problem: Acute recurrent pancreatitis Patient Disposition: Admitted As Inpatient Discharge Instructions Interventions: ED Discharge Assessment Last Done: 08/06/23 22:23
[2023-08-06] MEDS: SODIUM CHLORIDE 0.9% 1,000 ML IV ONE (20:15)
--- NOTE | 2023-08-06 20:15 | CT Scan Report ---
Exam(s): CT ABDOMEN + PELVIS With Contrast IV Amt: 89 ml optiray 320 EXAM: CT Abdomen and Pelvis With Intravenous Contrast CLINICAL HISTORY: Reason for exam: pancreatitis, pain. TECHNIQUE: Axial computed tomography images of the abdomen and pelvis with intravenous contrast. CTDI is 15.4 mGy and DLP is 737 mGy-cm. Automated exposure control was utilized for the study. A dose lowering technique was utilized adhering to the principles of ALARA. CONTRAST: Patient received 89 ml optiray 320 of IV contrast COMPARISON: MRI 06/17/2023 FINDINGS: ABDOMEN: Liver: Unremarkable. Gallbladder and bile ducts: Status post cholecystectomy. Pneumobilia present secondary to hepaticojejunostomy. Pancreas: Mild fat stranding around the pancreatic body and tail. Postsurgical changes in the region of the pancreatic head. No discrete mass. The pancreatic duct measures 3 mm, top normal. Spleen: Unremarkable. Adrenals: Unremarkable. Kidneys and ureters: Unremarkable. No obstructing stones. No hydronephrosis. Stomach and bowel: Postsurgical changes within the stomach. PELVIS: Appendix: No findings to suggest acute appendicitis. Bladder: Unremarkable. Reproductive: Unremarkable as visualized. ABDOMEN and PELVIS: Intraperitoneal space: Unremarkable. No free air. No significant fluid collection. Bones/joints: No acute fracture. Soft tissues: Unremarkable. Vasculature: Unremarkable. Lymph nodes: Unremarkable. IMPRESSION: Mild pancreatitis. Electronically signed by: David Schreiber MD 08/06/23 20:14 PM
--- NOTE | 2023-08-06 20:32 | History & Physical Report ---
Date of Service August 06, 2023 Assessment & Plan (1) Acute recurrent pancreatitis: Plan: -Admit to med/tele -Currently stable and non-toxic appearing -Presented to the ED with acute onset of her typical pancreatitis symptoms which began at approximately 0300 this am (08/06/23) -Patient had previous Whipple procedure due to neuroendocrine tumor -Denies recent alcohol use -Lipase of 6368, will obtain triglyceride level -CT of the abd/pelvis w/IV con was read as consistent with mild pancreatitis -S/P 11L NSS in the ED; will give 1L LR bolus now -Will continue with maintenance LR overnight -PRN tylenol and dilaudid for pain -Strict NPO overnight, if symptoms are improved tomorrow could start clears -Will place miscellaneous med order for her home Creon as we do not have the high dose on formulary, would resume when is start PO intake -GI consult placed -PRN zofran for nausea -SQ lovenox for DVT PPX -AM CBC, CMP, mag, PT/INR (2) History of Whipple procedure: Plan: -Due to previous Neuroendocrine tumor -Follows with Oncology in the [place] area -Rest of care per Acute pancreatitis plan (3) Hypertension: Plan: -Stable (4) GERD (gastroesophageal reflux disease): Plan: -Will give 40 mg IV pantoprazole on admission -Continue PO PPI when able Plan The patient was discussed with Dr. Dey at the time of the admission History of Present Illness Chief Complaint: Abdominal pain Primary Care Provider: Vernon Angulo DO Meg is a 53-year-old female with a past medical history including lupus, recurrent acute pancreatitis, status post Whipple procedure 2018 for neuroendocrine tumor with solitary bone met, hypertension, GERD who presented to the [facility] ED on 08/06/23 with acute onset of epigastric abdominal pain with radiation to the back, similar to her previous episodes of pancreatitis, which began around 0300 this am. She was noted to be hypertensive on arrival at 169/88 but was otherwise stable. Labs were significant for a lipase of [address] but were [address]. CT of the abd/pelvis w/IV con was read as consistent with mild pancreatitis but was otherwise unremarkable. Prior to admission the patient was given 1L NSS, 1mg IV dilaudid, and 2 doses of 4 mg IV zofran. At the time of the exam the patient was sitting in bed in no acute distress. Confirms the above history. Pain started in the epigastric region and radiated to the LUQ and the back. Associated with nausea but has not vomited. This is consistent with her previous episodes of pancreatitis. States she has noticed her stool to be kerrie colored over the past 72 hours. Denies recent fever, chills, chest pain, Cough, SOB, dysuria, hematuria, melena, diarrhea, LE swelling, and recent trauma. Please refer to Dr. Huitron's attestation for any changes to the treatment plan Allergies Allergy/AdvReac Type Severity Reaction Status Date / Time Penicillins AdvReac Intermediate unsure Verified 08/06/23 21:36 Home Medications Medication Instructions Recorded Confirmed Type Lactobacillus acidophilus 1 1,000 mmu cells PO DAILY 03/04/23 08/06/23 History billion cell capsule (Probiotic Gold Acidophilus) cholecalciferol (vitamin D3) 50 50 mcg PO DAILY 03/04/23 08/06/23 History mcg (2,000 unit) capsule krill oil 500 mg capsule 500 mg PO BID 03/04/23 08/06/23 History uqupbo-mwurdqiz-lnmgphf 2 cap PO QID 03/04/23 08/06/23 History 36,000-114,000-180,000 unit capsule,delay rel (Creon) multivitamin (Multiple Vitamins 1 tab PO DAILY 03/04/23 08/06/23 History tablet) pantoprazole 40 mg tablet,delayed 40 mg PO BID PRN Other 03/04/23 08/06/23 History release amlodipine 5 mg tablet 5 mg PO .once daily #90 tabs 06/08/23 08/06/23 Rx acetaminophen 500 mg tablet 500 mg PO Q6H PRN Pain 07/08/23 08/06/23 History (Tylenol Extra Strength) Past Med/Surg History Medical History Acute pancreatitis Recurrent acute pancreatitis Kidney congenitally absent, right Pancreatitis April 2015 Discoid lupus Basal cell carcinoma S/P MOHs (L ankle and L upper back 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 diagnosis - Ampulla of Vater - s/p whipple 2018 Bone Met L posterior Pelvis 2019 - s/p cyberknife Surgical History History of vein stripping 2006 History of Whipple procedure Dec 2017 Family History Mother Non-Hodgkin lymphoma Heart disease Father Alcohol abuse Brain tumor Social History Smoking Status: Former smoker Tobacco Type: Cigarettes Age Started Using Tobacco: 17; Age Quit Using Tobacco: 47; packs per day: 0.50; Second Hand Exposure: No; Do You Dip or Chew Tobacco: No; Hx Alcohol Use: No Hx Substance Use: No Preferred Language: Lithuanian Communication Ability: Effective Visual Impairment: Diminished Hearing Ability: Normal Worm Grower Required: No Beliefs That Will Affect Care: None marital status: Current Living Situation: Spouse current occupational status: retired 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 Feels Safe at Home: Yes Safety Concerns: Feels Safe At This Time Childhood Exposure to Second-Hand Smoke: Yes Diet: regular caffeine: Yes Dental Care, Regularly: No Physical Activity Frequency: Daily Physical Activity Frequency Comment: active lifestyle Seatbelt Use: always Sunscreen Use: Yes Do you think of yourself as: straight/heterosexual Assistive Devices: None Physical Exam Physical Exam: Physical Exam: General: In no acute distress, stated age, well-nourished, good hygiene HEENT: Normocephalic, atraumatic, no scleral icterus, pupils around round, symmetrical, and reactive to light, moist mucus membranes, trachea midline, no thyromegaly Chest/Pulm: No respiratory distress, symmetrical chest expansion, clear breath sounds throughout Cardiac: RRR, no murmurs noted Abdomen: Negative for ascites and bruising, normoactive bowel sounds, soft, significantly tender in the epigastric region and LUQ without rebound tenderness Musculoskeletal: Symmetrical and without signs of acute trauma, upper and l ower extremities with full ROM, no atrophy, spasticity, or flaccidity Extremities: Radial, dorsalis pedis, and posterior tibial pulses are intact and symmetrical, no edema noted in the BL LE's Skin: Warm, dry, no rashes , lesions, or scars noted Neuro: Alert and oriented to person, place, month, year, and president, no focal defects, no tremors noted Psych: No acute distress, calm and cooperative during the exam Results & Data Results & Data Vital Signs (Past 12 Hours) Vital Signs Temp Pulse Resp BP Pulse Ox O2 Del Method 08/06/23 18:24 37 C 84 20 169/88 H 97 Room Air Laboratory Results Abnormal lab results 08/06/23 Range/Units 18:33 RBC 4.13 L (4.20-5.40) M/uL Glucose 143 H (70-99(Fasting)) mg/dl Lipase 6368 H (11-82) U/L Diagnostic Findings Abdomen/Pelvis CT 08/06/23 19:28 Exam(s): CT ABDOMEN + PELVIS With Contrast IV Amt: 89 ml optiray 320 EXAM: CT Abdomen and Pelvis With Intravenous Contrast CLINICAL HISTORY: Reason for exam: pancreatitis, pain. TECHNIQUE: Axial computed tomography images of the abdomen and pelvis with intravenous contrast. CTDI is 15.4 mGy and DLP is 737 mGy-cm. Automated exposure control was utilized for the study. A dose lowering technique was utilized adhering to the principles of ALARA. CONTRAST: Patient received 89 ml optiray 320 of IV contrast COMPARISON: MRI 06/17/2023 FINDINGS: ABDOMEN: Liver: Unremarkable. Gallbladder and bile ducts: Status post cholecystectomy. Pneumobilia present secondary to hepaticojejunostomy. Pancreas: Mild fat stranding around the pancreatic body and tail. Postsurgical changes in the region of the pancreatic head. No discrete mass. The pancreatic duct measures 3 mm, top normal. Spleen: Unremarkable. Adrenals: Unremarkable. Kidneys and ureters: Unremarkable. No obstructing stones. No hydronephrosis. Stomach and bowel: Postsurgical changes within the stomach. PELVIS: Appendix: No findings to suggest acute appendicitis. Bladder: Unremarkable. Reproductive: Unremarkable as visualized. ABDOMEN and PELVIS: Intraperitoneal space: Unremarkable. No free air. No significant fluid collection. Bones/joints: No acute fracture. Soft tissues: Unremarkable. Vasculature: Unremarkable. Lymph nodes: Unremarkable. IMPRESSION: Mild pancreatitis. Electronically signed by: David Schreiber MD 08/06/23 20:14 PM ECG Additional Comments: Normal sinus rhythm with sinus arrhythmia Low voltage QRS Cannot rule out Ant eroseptal infarct (cited on or before 02-JUN-2023) Abnormal ECG When compared with ECG of 02-JUN-2023 14:18, QRS duration has decreased ST no longer elevated in Anterior leads Code Status & VTE Plan Code Status Full code VTE Prophylaxis Plan VTE Prophylaxis will be ordered: Yes Supervising Physician Co-Signing Physician Notes Attending addendum: I have physically seen this patient, have supervised the VI's activities, and agree with the H&P unless as otherwise noted. Assessment and Plan: Acute recurrent pancreatitis- Status post Whipple due to neuroendocrine tumor Lipase [address] abdomen pelvis consistent with mild pancreatitis Consult GI Consideration to MRCP IV fluids as noted Follow serial CBC with differential, chemistry profile and lipase levels GERD- While n.p.o., place on pantoprazole 40 mg IV daily PG Care Time/CCT Total # of Minutes Spent Total Time Spent with Patient: Total time spent is greater than 50% in coordination of care (as documented) at patient's floor/unit and/or counseling patient: C[place] [address] INT INP/OBS CARE 3/75MIN Patient Type Established Medical Decision Making High Complexity Diagnoses Acute recurrent pancreatitis K85.90 History of Whipple procedure Z90.410; Z90.49 Hypertension I10 GERD (gastroesophageal reflux disease) K21.9
[2023-08-06 21:23] LABS: Troponin I High Sensitivity 4.1 pg/ml (0-14)
[2023-08-06] MEDS: LACTATED RINGER'S 1,000 ML IV ONE (21:33)
[2023-08-06] MEDS: PANTOprazole 40 MG in SYRINGE 0 ML IV ONE (21:33)
[2023-08-06] MEDS: HYDROmorphone INJ 0.5 MG/0.5 ML SYR IV PRN (21:49)
[2023-08-06] MEDS: ONDANSETRON INJ 2 MG/ML 2 ML VIAL IV PRN (21:52)
[2023-08-06] MEDS: LACTATED RINGER'S 1,000 ML IV SCH ×2 (21:59→22:49)
[2023-08-07] MEDS: ENOXAPARIN INJ 40 MG/0.4 ML SYR SQ SCH (06:04)
[2023-08-07] MEDS: ACETAMINOPHEN 325 MG TAB PO PRN (06:04)
[2023-08-07 06:48] LABS: Basophils # (auto) 0.01 K/uL (0.00-0.20); Basophils % (auto) 0.2 %; Eosinophils # (auto) 0.07 K/uL (0.00-0.50); Eosinophils % (auto) 1.4 %; Hematocrit (blood only) 34.8 % (37.0-47.0); Hemoglobin 11.1 g/dl (12.0-16.0); Immature Granulocytes # (auto) 0.04 K/uL (0.01-0.20); Immature Granulocytes % (auto) 0.8 %; Lymphocytes # (auto) 1.46 K/uL (1.20-3.40); Lymphocytes % (auto) 29.7 %; Mean Corpuscular Hemoglobin 30.6 pg (25.0-34.0); Mean Corpuscular Hgb Conc 31.9 g/dL (32.0-36.0); Mean Corpuscular Volume 95.9 fL (80.0-100.0); Mean Platelet Volume 10.5 fL (9.4-12.4); Monocytes # (auto) 0.28 K/uL (0.11-0.59); Monocytes % (auto) 5.7 %; Neutrophils # (auto) 3.06 K/uL (1.40-6.50); Neutrophils % (auto) 62.2 %; Platelet Count 249 K/uL (130-400); RDW Coefficient of Variation 13.2 % (11.5-14.5); RDW Standard Deviation 46.8 fL (36.4-46.3); Red Blood Count 3.63 M/uL (4.20-5.40); White Blood Count 4.92 K/ul (4.8-10.8)
[2023-08-07 07:09] LABS: BUN Creatinine Ratio 9.1 (10-20); Bilirubin,Total 0.3 mg/dl (0.2-1.0); Calcium 9.2 mg/dl (8.6-10.3); Creatinine Clr Calc Pharmacy 93.3 ml/min; Est GFR (African American) 117.7 ml/min; Est GFR (Non-African American) 101.6 ml/min; Magnesium 1.7 mg/dl (1.7-2.4); Potassium 3.6 mmol/L (3.5-5.1)
[2023-08-07 07:16] LABS: Prothrombin Time 10.9 Seconds (9.0-12.0)
[2023-08-07] MEDS ORDERED: PANCREAZE (LIPASE 16,800U) CAP PO SCH (08:00)
[2023-08-07] MEDS: LIPASE/PROTEASE/AMYLASE PO SCH (08:11)
--- NOTE | 2023-08-07 09:55 | Hospitalist Progress Note ---
Date of Service August 07, 2023 Assessment & Plan (1) Acute recurrent pancreatitis: Plan: -Presented to the ED with acute onset of her typical pancreatitis symptoms which began several hours prior to presentation -Patient had previous Whipple procedure due to neuroendocrine tumor, according to her, the surgeon who did the surgery warned her she may have recurrent pancreatitis -Denies recent alcohol use -Lipase of 6368, triglyceride level pending -CT of the abd/pelvis w/IV con was read as consistent with mild pancreatitis -Continue aggressive fluid rehydration -N.p.o. and pain control -Will place miscellaneous med order for her home Creon as we do not have the h igh dose on formulary, would resume when is start PO intake -GI consult placed -PRN zofran for nausea (2) History of Whipple procedure: Plan: -Due to previous Neuroendocrine tumor -Follows with Oncology in the [place] area (3) Hypertension: Plan: Blood pressures under good control Continue medications. (4) GERD (gastroesophageal reflux disease): Plan: -Will give 40 mg IV pantoprazole on admission -Continue PO PPI when able Plan Continue hospitalization Full code DVT prophylaxis enoxaparin Admission and Anticipated Discharge Date Admission Date: August 06, 2023 Subjective Patient seen and examined today, states abdominal pain is about 5 out of 10 Review of Systems Review of Systems: All systems reviewed are negative, apart from the ones contained in the history. Physical Exam Physical Exam: The patient is awake, alert and oriented 3, well developed and well nourished, normocephalic and atraumatic, lying in bed and in no acute distress. HEENT--PERRL, EOMI, mucous membranes and oropharynx mildly dry Neck--supple. No JVD. No bruits. Thyroid normal, trachea midline, no adenopathy. Heart--normal S1 and S2. No murmurs, rubs or gallops. Lungs--clear bilaterally, no respiratory distress, no accessory muscle use. Abdomen--normal bowel sounds and soft. Extremities--no cyanosis or clubbing. No edema. Dermatologic--normal skin turgor, normal color, no abnormal lymph nodes, no rash. Neurologic--cranial nerves II through XII grossly intact. Rheumatologic--normal range of motion. Psychiatric--normal affect. Results & Data Results & Data Vital Signs (Past 12 Hours) Vital Signs Temp Pulse Pulse Resp BP BP Pulse Ox 08/07/23 07:54 98.4 F 71 16 112/70 95 08/07/23 07:21 65 08/07/23 03:29 98.2 F 71 16 119/74 95 08/06/23 22:38 98.2 F 61 18 143/95 H 96 08/06/23 22:33 65 08/06/23 22:23 89 18 114/72 100 O2 Del Method 08/07/23 07:54 Room Air 08/07/23 07:21 08/07/23 03:29 Room Air 08/06/23 22:38 Room Air 08/06/23 22:33 08/06/23 22:23 Room Air PG Care Time/CCT Total # of Minutes Spent Total Time Spent with Patient: Total time spent is greater than 50% in coordination of care (as documented) at patient's floor/unit and/or counseling patient: Coding Level of Care Code 66870 SUB INP/OBS CARE 2/35MIN Diagnoses Acute recurrent pancreatitis K85.90 History of Whipple procedure Z90.410; Z90.49 Hypertension I10 GERD (gastroesophageal reflux disease) K21.9 Time Spent (min) 35
--- NOTE | 2023-08-07 15:46 | Gastrointestinal Consultation ---
Date of Consultation August 07, 2023 Assessment & Plan (1) History of Whipple procedure: (2) Acute pancreatitis: Plan - NPO -Continue supportive care with IV fluid resuscitation, antiemetics and analgesics as prescribed. - Continue current therapy as per primary team - Will need to followup with surgical oncologist as an outpatient. History of Present Illness Reason for Consultation: Recurrent Acute Pancreatitis Attending Physician: Andriy Valverde MD History of Present Illness Meg Camp is a 53 yo CF who was previously admitted in May with acute pancreatitis, which resolved with supportive care. 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 She presented to the ER yesterday with complaints of pain epigastrium which radiated to the back. She admitted that it was similar to pain from prior episodes of pancreatitis. She did have some associated nausea, but no vomiting. Her lipase level in the ER was >[address] abd/pelvis showed findings consistent with pancreatitis. She has had several episodes of pancreatitis within the past 2 months. She was given IVF, narcotic analgesics and antiemetics and admitted. At the time I saw her, she continues to have epigastric pain, rated at 3/10 in intensity at present, radiating to her back, with some improvement with narcotic analgesics. She states she does feel a "little better." She denies any fevers, chills, nausea, vomiting, hematemesis, melena, or hematochezia. She has no further complaints. Allergies Allergy/AdvReac Type Severity Reaction Status Date / Time Penicillins AdvReac Intermediate unsure Verified 08/06/23 21:36 Home Medications Medication Instructions Recorded Confirmed Type Lactobacillus acidophilus 1 1,000 mmu cells PO DAILY 03/04/23 08/06/23 History billion cell capsule (Probiotic Gold Acidophilus) cholecalciferol (vitamin D3) 50 50 mcg PO DAILY 03/04/23 08/06/23 History mcg (2,000 unit) capsule krill oil 500 mg capsule 500 mg PO BID 03/04/23 08/06/23 History eyuxkp-muipwxrr-gqrovjw 2 cap PO QID 03/04/23 08/06/23 History 36,000-114,000-180,000 unit capsule,delay rel (Creon) multivitamin (Multiple Vitamins 1 tab PO DAILY 03/04/23 08/06/23 History tablet) pantoprazole 40 mg tablet,delayed 40 mg PO BID PRN Other 03/04/23 08/06/23 History release amlodipine 5 mg tablet 5 mg PO .once daily #90 tabs 06/08/23 08/06/23 Rx acetaminophen 500 mg tablet 500 mg PO Q6H PRN Pain 07/08/23 08/06/23 History (Tylenol Extra Strength) Patient History Medical History Acute pancreatitis Recurrent acute pancreatitis Kidney congenitally absent, right Pancreatitis April 2015 Discoid lupus Basal cell carcinoma S/P MOHs (L ankle and L upper back 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 diagnosis - Ampulla of Vater - s/p whipple 2017 Bone Met L posterior Pelvis 2020 - s/p cyberknife Surgical History History of vein stripping 2006 History of Whipple procedure Dec 2017 Family History Mother Non-Hodgkin lymphoma Heart disease Father Alcohol abuse Brain tumor Social History Smoking Status: Former smoker Tobacco Type: Cigarettes Age Started Using Tobacco: 17; Age Quit Using Tobacco: 47; packs per day: 0.50; Second Hand Exposure: No; Do You Dip or Chew Tobacco: No; Hx Alcohol Use: No Hx Substance Use: No Preferred Language: Georgian Communication Ability: Effective Visual Impairment: Diminished Hearing Ability: Normal Contaminated Land Consultant Required: No Beliefs That Will Affect Care: None marital status: Current Living Situation: Spouse current occupational status: 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 Feels Safe at Home: Yes Safety Concerns: Feels Safe At This Time Childhood Exposure to Second-Hand Smoke: Yes Diet: regular caffeine: Yes Dental Care, Regularly: No Physical Activity Frequency: Daily Physical Activity Frequency Comment: active lifestyle Seatbelt Use: always Sunscreen Use: Yes Do you think of yourself as: straight/heterosexual Assistive Devices: None Review of Systems Review of Systems: All systems reviewed & are unremarkable except as noted in Subjective Physical Exam Constitutional: WD/WN, vitals as above Respiratory: normal respiratory effort, lungs clear to auscultation Cardiovascular: RRR, no murmur, no edema Gastrointestinal (Abdomen): Inspection/Auscultation: normal bowel sounds; abdomen not distended Percussion/Palpation: + abdomen tender and abdomen soft; no guarding, abdomen not rigid and no hepatosplenomegaly Skin: no rashes, warm and dry Psychiatric: A+Ox3, euthymic affect Results & Data Vital Signs (Past 12 Hours) Vital Signs Temp Pulse Pulse Resp BP Pulse Ox O2 Del Method 08/07/23 15:36 65 08/07/23 12:12 37.0 C 82 16 118/73 98 Room Air 08/07/23 07:54 36.9 C 71 16 112/70 95 Room Air 08/07/23 07:21 65 PG Care Time/CCT Total # of Minutes Spent Total Time Spent with Patient: Total time spent is greater than 50% in coordination of care (as documented) at patient's floor/unit and/or counseling patient: Coding Level of Care Code 79169 IN/OBS CONSULT LVL 4,60M Diagnoses History of Whipple procedure Z90.410; Z90.49 Acute pancreatitis K85.90 Acute pancreatitis complication: unspecified Pancreatitis type: unspecified pancreatitis type (2) Acute pancreatitis Acute pancreatitis complication: unspecified Pancreatitis type: unspecified pancreatitis type Qualified Code(s): K85.90 - Acute pancreatitis without necrosis or infection, unspecified
[2023-08-07] MEDS: LACTATED RINGER'S 1,000 ML IV SCH (19:25)
--- NOTE | 2023-08-07 22:57 | Electrocardiogram Report ---
Test Reason : Blood Pressure : / mmHG Vent. Rate : 074 BPM Atrial Rate : 074 BPM P-R Int : 146 ms QRS Dur : 072 ms QT Int : 344 ms P-R-T Axes : 041 054 042 degrees QTc Int : 381 ms Normal sinus rhythm with sinus arrhythmia Low voltage QRS Cannot rule out Anteroseptal infarct (cited on or before 02-JUN-2023) Abnormal ECG When compared with ECG of 02-JUN-2023 14:18, No significant change Confirmed by Solomon Valladares ([id number]) on 08/07/2023 10:56:28 PM Referred By: REFERRED SELF Confirmed By:Solomon Valladares
[2023-08-08 06:54] LABS: Basophils # (auto) 0.01 K/uL (0.00-0.20); Basophils % (auto) 0.2 %; Eosinophils # (auto) 0.01 K/uL (0.00-0.50); Eosinophils % (auto) 0.2 %; Hemoglobin 10.2 g/dl (12.0-16.0); Immature Granulocytes # (auto) 0.02 K/uL (0.01-0.20); Immature Granulocytes % (auto) 0.4 %; Lymphocytes # (auto) 1.13 K/uL (1.20-3.40); Mean Corpuscular Hemoglobin 30.7 pg (25.0-34.0); Mean Corpuscular Hgb Conc 31.9 g/dL (32.0-36.0); Mean Corpuscular Volume 96.4 fL (80.0-100.0); Mean Platelet Volume 10.6 fL (9.4-12.4); Monocytes # (auto) 0.21 K/uL (0.11-0.59); Monocytes % (auto) 4.5 %; Neutrophils # (auto) 3.33 K/uL (1.40-6.50); Neutrophils % (auto) 70.7 %; Platelet Count 231 K/uL (130-400); RDW Coefficient of Variation 13.1 % (11.5-14.5); RDW Standard Deviation 45.9 fL (36.4-46.3); Red Blood Count 3.32 M/uL (4.20-5.40); White Blood Count 4.71 K/ul (4.8-10.8)
[2023-08-08 07:19] LABS: Albumin Globulin Ratio 1.9 (0.9-2); Albumin Level 3.7 gm/dl (3.4-5.0); Bilirubin,Total 0.4 mg/dl (0.2-1.0); Calcium 9.1 mg/dl (8.6-10.3); Creatinine Clr Calc Pharmacy 108.1 ml/min; Est GFR (African American) 123.5 ml/min; Est GFR (Non-African American) 106.6 ml/min; Magnesium 1.6 mg/dl (1.7-2.4); Total Protein 5.7 gm/dl (6.0-8.3)
[2023-08-08 07:20] LABS: INR 1.1 (0.9-1.1); Prothrombin Time 11.8 Seconds (9.0-12.0)
[2023-08-08] MEDS: LIPASE/PROTEASE/AMYLASE PO PRN (09:33)
--- NOTE | 2023-08-08 10:38 | Hospitalist Progress Note ---
Date of Service August 08, 2023 Assessment & Plan (1) Acute recurrent pancreatitis: Plan: -Presented to the ED with acute onset of her typical pancreatitis symptoms which began several hours prior to presentation -Patient had previous Whipple procedure due to neuroendocrine tumor, according to her, the surgeon who did the surgery warned her she may have recurrent pancreatitis -Denies recent alcohol use -Lipase of 6368, triglyceride level pending -CT of the abd/pelvis w/IV con was read as consistent with mild pancreatitis -Continue aggressive fluid rehydration -Pain is better today, patient willing to start on clear liquids -GI recommendation appreciated. (2) History of Whipple procedure: Plan: -Due to previous Neuroendocrine tumor -Follows with Oncology in the [place] area (3) Hypertension: Plan: Blood pressures under good control Continue medications. (4) GERD (gastroesophageal reflux disease): Plan: -Will give 40 mg IV pantoprazole on admission -Continue PO PPI when able Plan Continue hospitalization hopefully discharge when she started tolerating diet. Full code DVT prophylaxis enoxaparin Admission and Anticipated Discharge Date Admission Date: August 07, 2023 Subjective Patient seen and examined today, states abdominal pain is tolerable Review of Systems Review of Systems: All systems reviewed are negative, apart from the ones contained in the history. Physical Exam Physical Exam: The patient is awake, alert and oriented 3, well developed and well nourished, normocephalic and atraumatic, lying in bed and in no acute distress. HEENT--PERRL, EOMI, mucous membranes and oropharynx mildly dry Neck--supple. No JVD. No bruits. Thyroid normal, trachea midline, no adenopathy. Heart--normal S1 and S2. No murmurs, rubs or gallops. Lungs--clear bilaterally, no respiratory distress, no accessory muscle use. Abdomen--normal bowel sounds and soft. Extremities--no cyanosis or clubbing. No edema. Dermatologic--normal skin turgor, normal color, no abnormal lymph nodes, no rash. Neurologic--cranial nerves II through XII grossly intact. Rheumatologic--normal range of motion. Psychiatric--normal affect. Results & Data Results & Data Vital Signs (Past 12 Hours) Vital Signs Temp Pulse Pulse Resp BP Pulse Ox O2 Del Method 08/08/23 07:21 Room Air 04/22/24 07:19 98.2 F 72 16 112/64 96 Room Air 08/08/23 07:07 72 08/08/23 03:56 98.2 F 75 18 112/65 95 Room Air 08/07/23 22:40 98.6 F 83 18 131/74 95 Room Air PG Care Time/CCT Total # of Minutes Spent Total Time Spent with Patient: Total time spent is greater than 50% in coordination of care (as documented) at patient's floor/unit and/or counseling patient: Coding Level of Care Code 72495 SUB INP/OBS CARE 2/35MIN Diagnoses Acute recurrent pancreatitis K85.90 History of Whipple procedure Z90.410; Z90.49 Hypertension I10 GERD (gastroesophageal reflux disease) K21.9 Time Spent (min) 35
[2023-08-09 06:38] LABS: Basophils # (auto) 0.01 K/uL (0.00-0.20); Basophils % (auto) 0.2 %; Eosinophils # (auto) 0.09 K/uL (0.00-0.50); Hematocrit (blood only) 32.2 % (37.0-47.0); Hemoglobin 10.3 g/dl (12.0-16.0); Immature Granulocytes # (auto) 0.03 K/uL (0.01-0.20); Immature Granulocytes % (auto) 0.7 %; Lymphocytes # (auto) 1.38 K/uL (1.20-3.40); Lymphocytes % (auto) 31.3 %; Mean Corpuscular Hemoglobin 30.2 pg (25.0-34.0); Mean Corpuscular Volume 94.4 fL (80.0-100.0); Mean Platelet Volume 10.6 fL (9.4-12.4); Monocytes # (auto) 0.45 K/uL (0.11-0.59); Monocytes % (auto) 10.2 %; Neutrophils # (auto) 2.45 K/uL (1.40-6.50); Neutrophils % (auto) 55.6 %; Platelet Count 234 K/uL (130-400); RDW Coefficient of Variation 13.1 % (11.5-14.5); RDW Standard Deviation 45.3 fL (36.4-46.3); Red Blood Count 3.41 M/uL (4.20-5.40); White Blood Count 4.41 K/ul (4.8-10.8)
[2023-08-09 06:48] LABS: Albumin Globulin Ratio 1.7 (0.9-2); Albumin Level 3.8 gm/dl (3.4-5.0); BUN Creatinine Ratio 7.7 (10-20); Bilirubin,Total 0.3 mg/dl (0.2-1.0); Calcium 9.5 mg/dl (8.6-10.3); Creatinine Clr Calc Pharmacy 94.8 ml/min; Est GFR (African American) 118.3 ml/min; Est GFR (Non-African American) 102.1 ml/min; Globulin 2.3 gm/dl (2.5-4.0); Magnesium 1.7 mg/dl (1.7-2.4); Potassium 3.9 mmol/L (3.5-5.1); Total Protein 6.1 gm/dl (6.0-8.3)
[2023-08-09 07:00] LABS: INR 1.1 (0.9-1.1); Prothrombin Time 11.7 Seconds (9.0-12.0)
--- NOTE | 2023-08-09 10:58 | Hospitalist Progress Note ---
Date of Service August 09, 2023 Assessment & Plan (1) Acute recurrent pancreatitis: Plan: -Presented to the ED with acute onset of her typical pancreatitis symptoms which began several hours prior to presentation -Patient had previous Whipple procedure due to neuroendocrine tumor, according to her, the surgeon who did the surgery warned her she may have recurrent pancreatitis -Denies recent alcohol use -Lipase of 6368, triglyceride level pending -CT of the abd/pelvis w/IV con was read as consistent with mild pancreatitis -Continue aggressive fluid rehydration -Pain is better today, patient did not tolerate full liquid diet, will schedule her back to clear liquids -GI recommendation appreciated. (2) History of Whipple procedure: Plan: -Due to previous Neuroendocrine tumor -Follows with Oncology in the [place] area (3) Hypertension: Plan: Blood pressures under good control Continue medications. (4) GERD (gastroesophageal reflux disease): Plan: -Will give 40 mg IV pantoprazole on admission -Continue PO PPI when able Plan Continue hospitalization hopefully discharge when she started tolerating diet. Full code DVT prophylaxis enoxaparin Admission and Anticipated Discharge Date Admission Date: August 07, 2023 Subjective Patient seen and examined today, states abdominal pain is tolerable, however did not tolerate full liquid diet, will crank up back to clear liquids. Review of Systems Review of Systems: All systems reviewed are negative, apart from the ones contained in the history. Physical Exam Physical Exam: The patient is awake, alert and oriented 3, well developed and well nourished, normocephalic and atraumatic, lying in bed and in no acute distress. HEENT--PERRL, EOMI, mucous membranes and oropharynx mildly dry Neck--supple. No JVD. No bruits. Thyroid normal, trachea midline, no adenopathy. Heart--normal S1 and S2. No murmurs, rubs or gallops. Lungs--clear bilaterally, no respiratory distress, no accessory muscle use. Abdomen--normal bowel sounds and soft. Extremities--no cyanosis or clubbing. No edema. Dermatologic--normal skin turgor, normal color, no abnormal lymph nodes, no rash. Neurologic--cranial nerves II through XII grossly intact. Rheumatologic--normal range of motion. Psychiatric--normal affect. Results & Data Results & Data Vital Signs (Past 12 Hours) Vital Signs Temp Pulse Pulse Resp BP Pulse Ox O2 Del Method 08/09/23 07:45 Room Air 08/09/23 07:38 98.2 F 72 18 107/72 95 Room Air 08/09/23 07:00 60 08/09/23 03:37 98.4 F 71 16 139/77 95 Room Air 08/08/23 23:28 98.6 F 67 18 109/65 95 Room Air 08/08/23 23:22 64 PG Care Time/CCT Total # of Minutes Spent Total Time Spent with Patient: Total time spent is greater than 50% in coordination of care (as documented) at patient's floor/unit and/or counseling patient: Coding Level of Care Code 45454 SUB INP/OBS CARE 2/35MIN Diagnoses Acute recurrent pancreatitis K85.90 History of Whipple procedure Z90.410; Z90.49 Hypertension I10 GERD (gastroesophageal reflux disease) K21.9 Time Spent (min) 35
[2023-08-10] MEDS: bisacodyL 10 MG SUPP PR STA (10:22)
--- NOTE | 2023-08-10 11:29 | Hospitalist Progress Note ---
Date of Service August 10, 2023 Assessment & Plan (1) Acute recurrent pancreatitis: Plan: -Presented to the ED with acute onset of her typical pancreatitis symptoms which began several hours prior to presentation -Patient had previous Whipple procedure due to neuroendocrine tumor, according to her, the surgeon who did the surgery warned her she may have recurrent pancreatitis -Denies recent alcohol use -Lipase of 6368, triglyceride level pending -Patient initially tolerated clear liquid diet however could not tolerate Jell-O -Now has worsening abdominal pain. Will make her n.p.o. again -Appreciate GI recommendations. (2) History of Whipple procedure: Plan: -Due to previous Neuroendocrine tumor -Follows with Oncology in the [place] area (3) Hypertension: Plan: Blood pressures under good control Continue medications. (4) GERD (gastroesophageal reflux disease): Plan: -Will give 40 mg IV pantoprazole on admission -Continue PO PPI when able Plan Continue hospitalization hopefully discharge when she started tolerating diet. Full code DVT prophylaxis enoxaparin Admission and Anticipated Discharge Date Admission Date: August 07, 2023 Subjective Patient seen and examined today, beginning to have worsening abdominal pain overnight although better this morning but states she could not tolerate the Jell-O Review of Systems Review of Systems: All systems reviewed are negative, apart from the ones contained in the history. Physical Exam Physical Exam: The patient is awake, alert and oriented 3, well developed and well nourished, normocephalic and atraumatic, lying in bed and in no acute distress. HEENT--PERRL, EOMI, mucous membranes and oropharynx mildly dry Neck--supple. No JVD. No bruits. Thyroid normal, trachea midline, no adenopathy. Heart--normal S1 and S2. No murmurs, rubs or gallops. Lungs--clear bilaterally, no respiratory distress, no accessory muscle use. Abdomen--normal bowel sounds and soft. Extremities--no cyanosis or clubbing. No edema. Dermatologic--normal skin turgor, normal color, no abnormal lymph nodes, no rash. Neurologic--cranial nerves II through XII grossly intact. Rheumatologic--normal range of motion. Psychiatric--normal affect. Results & Data Results & Data Vital Signs (Past 12 Hours) Vital Signs Temp Pulse Pulse Resp BP Pulse Ox O2 Del Method 08/10/23 07:45 Room Air 08/10/23 07:12 67 08/10/23 07:08 98.6 F 71 16 135/73 93 Room Air 08/10/23 02:46 97.5 F L 69 16 139/84 95 Room Air 08/10/23 00:20 61 PG Care Time/CCT Total # of Minutes Spent Total Time Spent with Patient: Total time spent is greater than 50% in coordination of care (as documented) at patient's floor/unit and/or counseling patient: Coding Level of Care Code 64798 SUB INP/OBS CARE 2/35MIN Diagnoses Acute recurrent pancreatitis K85.90 History of Whipple procedure Z90.410; Z90.49 Hypertension I10 GERD (gastroesophageal reflux disease) K21.9 Time Spent (min) 35
[2023-08-10] MEDS: SODIUM CHLORIDE 0.9% 1,000 ML IV SCH (16:18)
[2023-08-11 06:53] LABS: Hematocrit (blood only) 32.9 % (37.0-47.0); Hemoglobin 10.5 g/dl (12.0-16.0); Mean Corpuscular Hemoglobin 30.1 pg (25.0-34.0); Mean Corpuscular Hgb Conc 31.9 g/dL (32.0-36.0); Mean Corpuscular Volume 94.3 fL (80.0-100.0); Mean Platelet Volume 10.6 fL (9.4-12.4); Platelet Count 243 K/uL (130-400); RDW Coefficient of Variation 12.9 % (11.5-14.5); RDW Standard Deviation 44.7 fL (36.4-46.3); Red Blood Count 3.49 M/uL (4.20-5.40); White Blood Count 4.37 K/ul (4.8-10.8)
[2023-08-11 07:28] LABS: BUN Creatinine Ratio 7.5 (10-20); Calcium 9.2 mg/dl (8.6-10.3); Creatinine Clr Calc Pharmacy 116.2 ml/min; Est GFR (African American) 126.5 ml/min; Est GFR (Non-African American) 109.2 ml/min; Potassium 3.8 mmol/L (3.5-5.1)
[2023-08-11] MEDS: OPTIRAY 320 100ml IV ONE (10:00)
[2023-08-11] MEDS: HYDROmorphone INJ 0.5 MG/0.5 ML SYR IV PRN (10:33)
--- NOTE | 2023-08-11 10:46 | Hospitalist Progress Note ---
Date of Service August 11, 2023 Assessment & Plan (1) Acute recurrent pancreatitis: Plan: -Presented to the ED with acute onset of her typical pancreatitis symptoms which began several hours prior to presentation -Patient had previous Whipple procedure due to neuroendocrine tumor, -Denies recent alcohol use -On admission, lipase of 6368, triglyceride 122 -Patient initially tolerated clear liquid diet however her pain got worse. -She is currently n.p.o., repeat CT scan of the abdomen and pelvis has been ordered result pending -Appreciate GI recommendations. -Continue pain control (2) History of Whipple procedure: Plan: -Due to previous Neuroendocrine tumor -Follows with Oncology in the [place] area (3) Hypertension: Plan: Blood pressures under good control Continue medications. (4) GERD (gastroesophageal reflux disease): Plan: -Will give 40 mg IV pantoprazole on admission -Continue PO PPI when able Plan Continue hospitalization hopefully discharge when she started tolerating diet. Full code DVT prophylaxis enoxaparin Admission and Anticipated Discharge Date Admission Date: August 07, 2023 Subjective Patient seen and examined today, was very distressed this morning, stated her abdominal pain is not getting any better and wanted to talk with the aviation safety equipment technician. Review of Systems Review of Systems: All systems reviewed are negative, apart from the ones contained in the history. Physical Exam Physical Exam: The patient is awake, alert and oriented 3, well developed and well nourished, normocephalic and atraumatic, lying in bed and in no acute distress. HEENT--PERRL, EOMI, mucous membranes and oropharynx mildly dry Neck--supple. No JVD. No bruits. Thyroid normal, trachea midline, no adenopathy. Heart--normal S1 and S2. No murmurs, rubs or gallops. Lungs--clear bilaterally, no respiratory distress, no accessory muscle use. Abdomen--mild abdominal tenderness Extremities--no cyanosis or clubbing. No edema. Dermatologic--normal skin turgor, normal color, no abnormal lymph nodes, no rash. Neurologic--cranial nerves II through XII grossly intact. Rheumatologic--normal range of motion. Psychiatric--normal affect. Results & Data Results & Data Vital Signs (Past 12 Hours) Vital Signs Temp Pulse Pulse Resp BP Pulse Ox O2 Del Method 08/11/23 07:47 98.2 F 73 16 119/74 96 Room Air 08/11/23 07:00 82 08/11/23 03:36 98.4 F 73 16 159/56 H 95 Room Air 08/10/23 23:36 74 08/10/23 22:58 98.2 F 69 16 134/79 94 Room Air PG Care Time/CCT Total # of Minutes Spent Total Time Spent with Patient: Total time spent is greater than 50% in coordination of care (as documented) at patient's floor/unit and/or counseling patient: Coding Level of Care Code 92155 SUB INP/OBS CARE 2/35MIN Diagnoses Acute recurrent pancreatitis K85.90 History of Whipple procedure Z90.410; Z90.49 Hypertension I10 GERD (gastroesophageal reflux disease) K21.9 Time Spent (min) 35
--- NOTE | 2023-08-11 11:01 | CT Scan Report ---
ABDOMEN AND PELVIS CT WITH IV CONTRAST CT DOSE: 681.98 mGy.cm HISTORY: worsening abd pain, follow up TECHNIQUE: Multiaxial CT images of the abdomen and pelvis were performed following the use of intrave nous contrast. A dose lowering technique was utilized adhering to the principles of ALARA. COMPARISON STUDY: Abdomen and pelvis CT 08/06/2023. FINDINGS: A few bibasilar linear densities consistent with subsegmental atelectasis. No pneumoperiton eum. No pneumatosis. No acute fractures. No hepatic masses. Small amount of pneumobilia is again note d. The main portal vein is patent. Scattered punctate calcified granulomas again noted within the spl een. The adrenal glands and left kidney are unremarkable. There is a severely atrophic right kidney, unchanged. There is a left circumaortic renal vein. No retroperitoneal lymphadenopathy. Mild calcifie d plaque within the normal caliber abdominal aorta. No pelvic lymphadenopathy or pelvic free fluid. T he bladder is decompressed and not well evaluated. The uterus and bilateral adnexa are unremarkable. Postoperative changes consistent with a prior Whipple procedure. The main pancreatic duct is at the u pper limits of normal measuring 3 mm. This remains unchanged. Peripancreatic edema/inflammatory smallwood e persists and is consistent with an acute pancreatitis. This is similar to the prior study. No perip ancreatic fluid collections identified to suggest a pseudocyst or abscess. No evidence for necrosis o f the residual pancreas. No bowel wall thickening or obstruction. Normal appendix. IMPRESSION: 1. No significant change in the acute pancreatitis. 2. Prior Whipple procedure. 3. Additional findings as described above. ACT 112: Negative or not required by law. Electronically signed by: Luca Begum M.D. 08/11/2023 10:59 AM
--- NOTE | 2023-08-11 13:09 | Gastroenterology Progress Note ---
Date of Service August 11, 2023 Assessment & Plan (1) Acute recurrent pancreatitis: Plan: CT unchanged and without further complications. She is supplemented chronically with pancreatic enzymes given Whipple history in 2018. -NPO if worsening pain -IV fluid hydration -Pain control per primary team -Can assess with EGD on 08/12/23 to exclude other issues -If pain persists, consider collaborating with a tertiary surgical team given her complicated pancreatic surgical history Admission and Anticipated Discharge Date Admission Date: August 07, 2023 Supervising Physician Co-Signing Physician Notes Agree with BASILIA Pearce as above Interviewed and examined patient and agree with above Abd: Soft, Tender epigastric area, ND, +BS Continue current therapy and supportive care Still with significant pain Reviewed CT scan with Dr. Begum and no obvious cause of persistent pain besides pancreatitis. Increase Pantoprazole to 40 mg IV BID EGD in AM Subjective Patient is a 53 yo female with pancreatitis. She has been admitted for 4 days and notes worsening abdominal pain. A repeat CT scan today shows pancreatitis with no further complications. Patient is s/p Whipple procedure. Review of Systems Constitutional: no fever and no chills Gastrointestinal: + abdominal pain Physical Exam Constitutional: well developed Respiratory: normal respiratory effort Gastrointestinal (Abdomen): Percussion/Palpation: + abdomen tender Results & Data Results & Data Vital Signs (Past 12 Hours) Vital Signs Temp Pulse Pulse Resp BP Pulse Ox O2 Del Method 08/11/23 11:39 36.8 C 75 16 153/79 H 97 Room Air 08/11/23 07:47 36.8 C 73 16 119/74 96 Room Air 08/11/23 07:00 82 08/11/23 03:36 36.9 C 73 16 159/56 H 95 Room Air PG Care Time/CCT Total # of Minutes Spent Total Time Spent with Patient: Total time spent is greater than 50% in coordination of care (as documented) at patient's floor/unit and/or counseling patient: Coding Level of Care Code 35915 SUB INP/OBS CARE 3/50MIN Diagnoses Acute recurrent pancreatitis K85.90
[2023-08-11] MEDS: PANTOprazole 40 MG in SYRINGE 0 ML IV SCH (20:25)
--- NOTE | 2023-08-12 07:58 | Anesthesiology Consultation ---
Date of Service August 12, 2023 Assessment & Plan (1) Encounter for pre-operative examination: Chart Review Chart Review: Acceptable Risk for Surgery, Patient NOT seen in Pre Admission Testing and entry level sales consultant initiated Consults Requested none Proposed Anesthesia Anesthesia Type: MAC History Surgery Operation Date: 08/12/23 16:55 Proposed Procedures p Esophagogastroduodenoscopy Dr Bowden - Taran Queen Case, DO Height/Weight Height: 5 ft 6 in Weight: 71.1 kg Allergies Allergy/AdvReac Type Severity Reaction Status Date / Time Penicillins AdvReac Intermediate unsure Verified 08/06/23 21:36 Medications Home Medications Medication Instructions Recorded Confirmed Last Taken Lactobacillus acidophilus 1 1,000 mmu cells PO DAILY 03/04/23 08/06/23 Unknown billion cell capsule (Probiotic Gold Acidophilus) cholecalciferol (vitamin D3) 50 50 mcg PO DAILY 03/04/23 08/06/23 Unknown mcg (2,000 unit) capsule krill oil 500 mg capsule 500 mg PO BID 03/04/23 08/06/23 Unknown qqisjx-mmkscurt-ptrritn 2 cap PO QID 03/04/23 08/06/23 Unknown 36,000-114,000-180,000 unit capsule,delay rel (Creon) multivitamin (Multiple Vitamins 1 tab PO DAILY 03/04/23 08/06/23 Unknown tablet) pantoprazole 40 mg tablet,delayed 40 mg PO BID PRN Other 03/04/23 08/06/23 Unknown release amlodipine 5 mg tablet 5 mg PO .once daily #90 tabs 06/08/23 08/06/23 Unknown acetaminophen 500 mg tablet 500 mg PO Q6H PRN Pain 07/08/23 08/06/23 Unknown (Tylenol Extra Strength) Active Medications Generic Name Dose Route Start Last Admin Trade Name Freq PRN Reason Stop Dose Admin Acetaminophen 650 mg 08/06/23 20:31 08/11/23 21:12 Acetaminophen 325 Mg Tab PO 09/05/23 20:44 650 mg Q6H PRN Administration pain(1-4),headache,fever Lipase/Protease/Amylase 2 each 08/07/23 08:00 08/11/23 15:31 Lipase/Protease/Amylase PO 09/06/23 07:59 Not Given TIDM LIZA Enoxaparin Sodium 40 mg 08/07/23 06:00 08/12/23 05:55 Enoxaparin Inj 40 Mg/0.4 Ml Syr SQ 09/06/23 05:59 Not Given Q24H LIZA Hydromorphone HCl 0.5 mg 08/11/23 08:55 08/12/23 06:17 Hydromorphone Inj 0.5 Mg/0.5 Ml Syr IV 08/20/23 20:59 0.5 mg Q3H PRN Administration Pain(5+) Sodium Chloride 1,000 mls @ 100 mls/hr 08/10/23 16:15 08/12/23 06:17 Nss IV 09/09/23 16:14 100 mls/hr .Q10H LIZA Administration Pantoprazole Sodium 40 mg/ 10 mls @ 5 mls/min 08/11/23 21:00 08/11/23 20:25 Syringe IV 09/10/23 20:59 5 mls/min BID LIZA Administration Ondansetron HCl 4 mg 08/06/23 20:32 08/12/23 02:57 Ondansetron Inj 2 Mg/Ml 2 Ml Vial IV 09/05/23 20:31 4 mg Q6H PRN Administration Nausea And Vomiting NPO Date Last Intake of Fluids: 08/11/23 Time Last Intake of Fluids: 23:59 Date Last Intake of Solids: 08/11/23 Time Last Intake of Solids: 23:59 Past Medical History Medical History (Updated 08/12/23 @ 07:58 by Will Ny MD) Encounter for pre-operative examination Acute pancreatitis Recurrent acute pancreatitis Kidney congenitally absent, right Pancreatitis April 2015 Discoid lupus Basal cell carcinoma S/P MOHs (L ankle and L upper back 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 diagnosis - Ampulla of Vater - s/p whipple 2018 Bone Met L posterior Pelvis 2020 - s/p cyberknife Past Family History Family History Mother Non-Hodgkin lymphoma Heart disease Father Alcohol abuse Brain tumor Past Surgical History Surgical History History of vein stripping 2006 History of Whipple procedure Dec 2017 Social History Smoking Status: Former smoker Do You Dip or Chew Tobacco: No Hx Alcohol Use: No Hx Substance Use: No Physical Exam Vital Signs Last Vital Signs Temp 36.9 C 08/12/23 07:31 Pulse 70 08/12/23 07:31 Resp 16 08/12/23 07:31 BP 122/77 08/12/23 07:31 Pulse Ox 95 08/12/23 07:31 O2 Del Method Room Air 08/12/23 07:31 Testing Laboratory Results 08/11/23 05:58 PT 11.7 Seconds (9.0-12.0) 08/09/23 05:40 INR 1.1 (0.9-1.1) 08/09/23 05:40 Urine Color Yellow 08/06/23 19:26 Urine Appearance Clear (Clear) 08/06/23 19: Urine pH 6.5 (4.5-7.5) 08/06/23 19: Ur Specific [facility] 1.009 (1.000-1.030) 08/06/23 19:26 Urine Protein Negative (Negative) 08/06/23 19:26 Urine Glucose (UA) Negative (Negative) 08/06/23 19:26 Urine Ketones Negative (Negative) 08/06/23 19:26 Urine Nitrite Negative (Negative) 08/06/23 19:26 Ur Leukocyte Esterase Negative (Negative) 08/06/23 19:26 Electrocardiogram Date: 08/06/23 Test Reason : Blood Pressure : / mmHG Vent. Rate : 074 BPM Atrial Rate : 074 BPM P-R Int : 146 ms QRS Dur : 072 ms QT Int : 344 ms P-R-T Axes : 041 054 042 degrees QTc Int : 381 ms Normal sinus rhythm with sinus arrhythmia Low voltage QRS Cannot rule out Anteroseptal infarct (cited on or before 02-JUN-2023) Abnormal ECG When compared with ECG of 02-JUN-2023 14:18, No significant change
[2023-08-12] MEDS: SODIUM CHLORIDE 0.9% 500 ML IV SCH (08:00)
[2023-08-12 08:17] LABS: Creatinine Clr Calc Pharmacy 106.2 ml/min; Est GFR (African American) 122.8 ml/min
--- NOTE | 2023-08-12 09:19 | History & Physical Bridge Note ---
Date of Service August 12, 2023 History & Physical Bridge Note I have examined the patient, reviewed the History & Physical and in the interval since the performance of the History & Physical I have noted the following changes of clinical significance: Patient has had improvement of her abdominal pain from 12/26 to 09/25. She denies new issues overnight. She has been NPO. Keep NPO for EGD today. Continue IV PPI BID. Supervising Physician Co-Signing Physician Notes Agree with BASILIA Pearce as above Interviewed and examined patient and agree with above Abd: Soft, Tender epigastric area, ND, +BS Continue current therapy and supportive care Proceed with EGD now
--- NOTE | 2023-08-12 12:23 | Hospitalist Progress Note ---
Date of Service August 12, 2023 Assessment & Plan (1) Acute recurrent pancreatitis: Plan: -Presented to the ED with acute onset of her typical pancreatitis symptoms which began several hours prior to presentation -Patient had previous Whipple procedure due to neuroendocrine tumor, -Denies recent alcohol use -On admission, lipase of 6368, triglyceride 122 -Patient initially tolerated clear liquid diet however her pain got worse. -She is currently n.p.o., repeat CT scan of the abdomen and pelvis was essentially the same like the last time. -Plan is for EGD today -Appreciate GI recommendations. -Continue pain control (2) History of Whipple procedure: Plan: -Due to previous Neuroendocrine tumor -Follows with Oncology in the [place] area (3) Hypertension: Plan: Blood pressures under good control Continue medications. (4) GERD (gastroesophageal reflux disease): Plan: -Will give 40 mg IV pantoprazole on admission -Continue PO PPI when able Plan Continue hospitalization hopefully discharge when she started tolerating diet. Full code DVT prophylaxis enoxaparin Admission and Anticipated Discharge Date Admission Date: August 07, 2023 Subjective Patient seen and examined today, said the pain still the but better overnight. Plan is for EGD today Review of Systems Review of Systems: All systems reviewed are negative, apart from the ones contained in the history. Physical Exam Physical Exam: The patient is awake, alert and oriented 3, well developed and well nourished, normocephalic and atraumatic, lying in bed and in no acute distress. HEENT--PERRL, EOMI, mucous membranes and oropharynx mildly dry Neck--supple. No JVD. No bruits. Thyroid normal, trachea midline, no adeno anabell. Heart--normal S1 and S2. No murmurs, rubs or gallops. Lungs--clear bilaterally, no respiratory distress, no accessory muscle use. Abdomen--mild abdominal tenderness Extremities--no cyanosis or clubbing. No edema. Dermatologic--normal skin turgor, normal color, no abnormal lymph nodes, no rash. Neurologic--cranial nerves II through XII grossly intact. Rheumatologic--normal range of motion. Psychiatric--normal affect. Results & Data Results & Data Vital Signs (Past 12 Hours) Vital Signs Temp Pulse Resp BP Pulse Ox Pulse Ox O2 Del Method 08/12/23 11:44 99.5 F 89 16 147/86 H 97 Room Air 08/12/23 07:31 98.4 F 70 16 122/77 95 Room Air 08/12/23 03:20 98 08/12/23 03:20 97.5 F L 66 16 132/79 98 Room Air O2 Del Method 08/12/23 11:44 08/12/23 07:31 08/12/23 03:20 Room Air 08/12/23 03:20 PG Care Time/CCT Total # of Minutes Spent Total Time Spent with Patient: Total time spent is greater than 50% in coordination of care (as documented) at patient's floor/unit and/or counseling patient: Coding Level of Care Code 45499 SUB INP/OBS CARE 2/35MIN Diagnoses Acute recurrent pancreatitis K85.90 History of Whipple procedure Z90.410; Z90.49 Hypertension I10 GERD (gastroesophageal reflux disease) K21.9 Time Spent (min) 35
--- NOTE | 2023-08-12 13:16 | Pain Management Consultation ---
Date of Consultation August 12, 2023 Assessment & Plan (1) Acute recurrent pancreatitis: Plan 1. Patient's pain is well-controlled with the current regimen of hydromorphone 0.5 mg every 3 hours if needed. She has utilized 3.5 mg of hydromorphone over the last 24 hours. As long as patient remains n.p.o. would recommend continuation of hydromorphone. 2. If there is a consideration of p.o. opioid medication could try oxycodone 5 mg every 4 hours if needed. 3. Could consider a celiac nerve block to address the epigastric abdominal pain but this will likely only provide short-term pain relief as she is not a candidate for phenol neurolysis which would provide long-term pain relief. I would find it appropriate to be n.p.o. and follow through with EGD that is to be done today to see if there is anything that may need to be addressed. 4. Will sign off on the patient. Please contact with any questions or concerns. History of Present Illness Attending Physician: Andriy Valverde MD History of Present Illness This is a 53-year-old female with a significant history of a neuroendocrine tumor in 2018 that required a Whipple procedure. She is admitted to the [facility] pain service with acute on chronic pancreatitis over the past 6 days. She is currently ordered IV Dilaudid 0.5 mg every 3 hours if necessary for pain and has required 3.5 mg over the past 24 hours. Since yesterday the pain has reduced from a 9 to a 6/10. She has been n.p.o. and is having an EGD procedure now. Allergies Allergy/AdvReac Type Severity Reaction Status Date / Time Penicillins AdvReac Intermediate unsure Verified 08/12/23 11:43 Home Medications Medication Instructions Recorded Confirmed Type Lactobacillus acidophilus 1 1,000 mmu cells PO DAILY 03/04/23 08/06/23 History billion cell capsule (Probiotic Gold Acidophilus) cholecalciferol (vitamin D3) 50 50 mcg PO DAILY 03/04/23 08/06/23 History mcg (2,000 unit) capsule krill oil 500 mg capsule 500 mg PO BID 03/04/23 08/06/23 History oglzjo-ylvldisd-gyxguhs 2 cap PO QID 03/04/23 08/06/23 History 36,000-114,000-180,000 unit capsule,delay rel (Creon) multivitamin (Multiple Vitamins 1 tab PO DAILY 03/04/23 08/06/23 History tablet) pantoprazole 40 mg tablet,delayed 40 mg PO BID PRN Other 03/04/23 08/06/23 History release amlodipine 5 mg tablet 5 mg PO .once daily #90 tabs 06/08/23 08/06/23 Rx acetaminophen 500 mg tablet 500 mg PO Q6H PRN Pain 07/08/23 08/06/23 History (Tylenol Extra Strength) Patient History Medical History (Updated 08/12/23 @ 07:58 by Will Ny MD) Encounter for pre-operative examination Acute pancreatitis Recurrent acute pancreatitis Kidney congenitally absent, right Pancreatitis April 2015 Discoid lupus Basal cell carcinoma S/P MOHs (L ankle and L upper back 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 diagnosis - Ampulla of Vater - s/p whipple 2017 Bone Met L posterior Pelvis 2019 - s/p cyberknife Surgical History History of vein stripping 2006 History of Whipple procedure Dec 2017 Family History Mother Non-Hodgkin lymphoma Heart disease Father Alcohol abuse Brain tumor Social History Smoking Status: Former smoker Tobacco Type: Cigarettes Age Started Using Tobacco: 17; Age Quit Using Tobacco: 47; packs per day: 0.50; Second Hand Exposure: No; Do You Dip or Chew Tobacco: No; Hx Alcohol Use: No Hx Substance Use: No Preferred Language: Tajik Communication Ability: Effective Visual Impairment: Diminished Hearing Ability: Normal Organizational Research Consultant Required: No Beliefs That Will Affect Care: None marital status: Current Living Situation: Spouse current occupational status: retired 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 Spoke with her . Results (Pain Clinic) Opioid Risk Assessment Opioid Risk Assessment: risk assessment performed and no issues identified
--- NOTE | 2023-08-12 14:15 | GI REPORT ---
Patient Name: Meg Camp Procedure Date: 08/12/2023 12:40 PM Date of : 1970 Admit Type: Inpatient Age: 53 Gender: Female Attending MD: Taran Bowden DO, Procedure: Upper GI endoscopy Providers: Taran Bowden DO Referring MD: Andriy Valverde MD, Vernon Angulo DO, Raz Lin Indications: Epigastric abdominal pain Medicines: Monitored Anesthesia Care Complications: No immediate complications. Estimated Blood Loss: Estimated blood loss: none. Procedure: Pre-Anesthesia Assessment: - Prior to the procedure, a History and Physical was performed, and patient medications and allergies were reviewed. The patient's tolerance of previous anesthesia was also reviewed. The risks and benefits of the procedure and the sedation options and risks were discussed with the patient. All questions were answered, and informed consent was obtained. Prior Anticoagulants: The patient has taken no anticoagulant or antiplatelet agents. ASA Grade Assessment: III - A patient with severe systemic disease. After reviewing the risks and benefits, the patient was deemed in satisfactory condition to undergo the procedure. After obtaining informed consent, the endoscope was passed under direct vision. Throughout the procedure, the patient's blood pressure, pulse, and oxygen saturations were monitored continuously. The Scope was introduced through the mouth, and advanced to the jejunum. The upper GI endoscopy was accomplished without difficulty. The patient tolerated the procedure well. Findings: The esophagus was normal. Evidence of a classic Whipple was found in the stomach. This was characterized by healthy appearing mucosa. The examined jejunum was normal. Impression: - Normal esophagus. - A classic Whipple was found, characterized by healthy appearing mucosa. - Normal examined jejunum. - No specimens collected. Recommendation: - Return patient to hospital [facility] for ongoing care. - Advance diet as tolerated. - Continue present medications. Taran Bowden DO 08/12/2023 2:15:08 PM This report has been signed electronically. Note Initiated On: 08/12/2023 12:40 PM Number of Addenda: 0 I attest to the content of the Intraoperative Record and orders documented therein, exceptions below {[id number]}
--- NOTE | 2023-08-12 14:29 | Anesthesiology Progress Note ---
Date of Service August 12, 2023 Anesthesia Post Procedure Vital Signs Vital Signs: Temp Pulse Pulse Resp BP Pulse Ox Pulse Ox 08/12/23 14:15 76 20 117/69 98 08/12/23 14:00 77 18 124/70 97 08/12/23 13:45 80 16 111/64 98 08/12/23 11:44 37.5 C 89 16 147/86 H 97 08/12/23 07:31 36.9 C 70 16 122/77 95 08/12/23 03:20 98 08/12/23 03:20 36.4 C L 66 16 132/79 98 08/11/23 23:22 37.1 C 80 16 108/66 95 08/11/23 21:51 77 08/11/23 21:00 08/11/23 19:17 37.1 C 79 18 148/83 H 98 08/11/23 15:58 36.8 C 77 16 147/76 H 95 08/11/23 15:00 64 O2 Del Method O2 Del Method 08/12/23 14:15 Room Air 08/12/23 14:00 Room Air 08/12/23 13:45 Room Air 08/12/23 11:44 Room Air 08/12/23 07:31 Room Air 08/12/23 03:20 Room Air 08/12/23 03:20 Room Air 08/11/23 23:22 Room Air 08/11/23 21:51 08/11/23 21:00 Room Air 08/11/23 19:17 Room Air 08/11/23 15:58 Room Air 08/11/23 15:00 Pain Intensity Abdomen: Pain Intensity: 5 Transfer of Care Handoff Completed per policy Notes Mental Status: alert / awake / arousable and participated in evaluation Patient Amnestic to Procedure: Yes Nausea / Vomiting: adequately controlled Pain: adequately controlled Airway Patency, RR, SpO2: stable & adequate BP & HR: stable & adequate Hydration State: stable & adequate Anesthetic Complications: no major complications apparent
[2023-08-12] MEDS: fentaNYL citrate PF 100 MCG/2 ML VIAL ONE (14:36)
[2023-08-12] MEDS: PROPOFOL IV EMULSION 10 MG/ML 20 ML VIAL IV ONE (14:37)
[2023-08-12] MEDS: LIDOCAINE 2% 2 ML VIAL/AMP(20MG/ML) INFIL ONE (14:37)
[2023-08-13 06:39] LABS: Hematocrit (blood only) 31.6 % (37.0-47.0); Hemoglobin 10.5 g/dl (12.0-16.0); Mean Corpuscular Hemoglobin 30.9 pg (25.0-34.0); Mean Corpuscular Hgb Conc 33.2 g/dL (32.0-36.0); Mean Corpuscular Volume 92.9 fL (80.0-100.0); Mean Platelet Volume 10.4 fL (9.4-12.4); Platelet Count 246 K/uL (130-400); RDW Coefficient of Variation 12.8 % (11.5-14.5); RDW Standard Deviation 43.2 fL (36.4-46.3); White Blood Count 5.24 K/ul (4.8-10.8)
[2023-08-13 06:58] LABS: BUN Creatinine Ratio 8.2 (10-20); Calcium 8.9 mg/dl (8.6-10.3); Est GFR (African American) 120.8 ml/min; Est GFR (Non-African American) 104.2 ml/min; Potassium 3.9 mmol/L (3.5-5.1)
--- NOTE | 2023-08-13 10:20 | Hospitalist Progress Note ---
Date of Service August 13, 2023 Assessment & Plan (1) Acute recurrent pancreatitis: Plan: -Presented to the ED with acute onset of her typical pancreatitis symptoms which began several hours prior to presentation -Patient had previous Whipple procedure due to neuroendocrine tumor, -Denies recent alcohol use -On admission, lipase of 6368, triglyceride 122 -Repeat lipase has dropped down to 100s -Patient initially tolerated clear liquid diet however her pain got worse. -Repeat CT scan of the abdomen and pelvis was essentially the same like the last time. -EGD was also within normal limits. -Patient now beginning to tolerate clear liquids again -Appreciate GI recommendations. -Continue pain control (2) History of Whipple procedure: Plan: -Due to previous Neuroendocrine tumor -Follows with Oncology in the [place] area (3) Hypertension: Plan: Blood pressures under good control Continue medications. (4) GERD (gastroesophageal reflux disease): Plan: -Will give 40 mg IV pantoprazole on admission -Continue PO PPI when able Plan Continue hospitalization hopefully discharge when she started tolerating diet. Full code DVT prophylaxis enoxaparin Admission and Anticipated Discharge Date Admission Date: August 07, 2023 Subjective Patient seen and examined today, said the pain still the but better overnight. She is status post EGD Review of Systems Review of Systems: All systems reviewed are negative, apart from the ones contained in the history. Physical Exam Physical Exam: The patient is awake, alert and oriented 3, well developed and well nourished, normocephalic and atraumatic, lying in bed and in no acute distress. HEENT--PERRL, EOMI, mucous membranes and oropharynx mildly dry Neck--supple. No JVD. No bruits. Thyroid normal, trachea midline, no adenopathy. Heart--normal S1 and S2. No murmurs, rubs or gallops. Lungs--clear bilaterally, no respiratory distress, no accessory muscle use. Abdomen--mild abdominal tenderness Extremities--no cyanosis or clubbing. No edema. Dermatologic--normal skin turgor, normal color, no abnormal lymph nodes, no rash. Neurologic--cranial nerves II through XII grossly intact. Rheumatologic--normal range of motion. Psychiatric--normal affect. Results & Data Results & Data Vital Signs (Past 12 Hours) Vital Signs Temp Pulse Resp BP Pulse Ox O2 Del Method 08/13/23 08:22 98.6 F 76 16 134/86 93 Room Air PG Care Time/CCT Total # of Minutes Spent Total Time Spent with Patient: Total time spent is greater than 50% in coordination of care (as documented) at patient's floor/unit and/or counseling patient: Coding Level of Care Code 89940 SUB INP/OBS CARE 2/35MIN Diagnoses Acute recurrent pancreatitis K85.90 History of Whipple procedure Z90.410; Z90.49 Hypertension I10 GERD (gastroesophageal reflux disease) K21.9 Time Spent (min) 35
--- NOTE | 2023-08-14 09:49 | Hospitalist Progress Note ---
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 -EGD was also within normal limits. -Patient willing to advance from clear liquid to full liquid -Appreciate GI recommendations. -Continue pain control (2) History of Whipple procedure: Plan: -Due to previous Neuroendocrine tumor -Follows with Oncology in the [place] area (3) Hypertension: Plan: Blood pressures under good control Continue medications. (4) GERD (gastroesophageal reflux disease): Plan: -Will give 40 mg IV pantoprazole on admission -Continue PO PPI when able Plan Continue hospitalization hopefully discharge when she started tolerating regular diet. Full code DVT prophylaxis enoxaparin Admission and Anticipated Discharge Date Admission Date: August 07, 2023 Subjective Patient seen and examined today, said abdominal pain continues to improve, only mild discomfort in the left flank Review of Systems Review of Systems: All systems reviewed are negative, apart from the ones contained in the history. Physical Exam Physical Exam: The patient is awake, alert and oriented 3, well developed and well nourished, normocephalic and atraumatic, lying in bed and in no acute distress. HEENT--PERRL, EOMI, mucous membranes and oropharynx mildly dry Neck--supple. No JVD. No bruits. Thyroid normal, trachea midline, no adenopathy. Heart--normal S1 and S2. No murmurs, rubs or gallops. Lungs--clear bilaterally, no respiratory distress, no accessory muscle use. Abdomen--mild abdominal tenderness Extremities--no cyanosis or clubbing. No edema. Dermatologic--normal skin turgor, normal color, no abnormal lymph nodes, no rash. Neurologic--cranial nerves II through XII grossly intact. Rheumatologic--normal range of motion. Psychiatric--normal affect. Results & Data Results & Data Vital Signs (Past 12 Hours) Vital Signs Temp Pulse Resp BP Pulse Ox O2 Del Method 08/14/23 07:57 98.4 F 63 16 131/80 96 Room Air PG Care Time/CCT Total # of Minutes Spent Total Time Spent with Patient: Total time spent is greater than 50% in coordination of care (as documented) at patient's floor/unit and/or counseling patient: Coding Level of Care Code 58596 SUB INP/OBS CARE 2/35MIN Diagnoses Acute recurrent pancreatitis K85.90 History of Whipple procedure Z90.410; Z90.49 Hypertension I10 GERD (gastroesophageal reflux disease) K21.9 Time Spent (min) 35
[2023-08-14] MEDS: PANTOprazole 40 MG TAB PO SCH (20:15)
[2023-08-15 07:45] LABS: Creatinine Clr Calc Pharmacy 116.2 ml/min; Est GFR (African American) 126.5 ml/min; Est GFR (Non-African American) 109.2 ml/min
--- NOTE | 2023-08-15 11:13 | Hospitalist Progress Note ---
Date of Service August 15, 2023 Assessment & Plan (1) Acute recurrent pancreatitis: Plan: Now resolved. She previously has had cholecystectomy. Triglyceride levels are not markedly elevated. I reviewed her medications and I cannot find anything that could cause recurrent pancreatitis. She understands that her symptoms may recur. She will be discharged home today, August 06, with a small amount of oxycodone 5 mg to take as needed for any recurrent abdominal pain. She had previous Whipple procedure due to neuroendocrine tumor. Abdominal CT scan did not show any new findings. EGD was done by gastroenterology with normal results. She denies alcohol use. (2) History of Whipple procedure: Plan: Due to Neuroendocrine tumor. Follows with Oncology in the [facility] (3) Hypertension: Plan: Stable. Continue current medical management (4) GERD (gastroesophageal reflux disease): Plan: Stable. She uses Protonix on an as needed basis Plan Home today, August 14. Oxycodone 5 mg as needed for any recurrent abdominal discomfort. Follow-up with PCP as soon as possible Admission and Anticipated Discharge Date Admission Date: August 07, 2023 Subjective Alert and oriented. No distress. Her is at the bedside. Her diet has been advanced and she has no nausea or vomiting. She still has intermittent abdominal discomfort that can be managed with as needed oxycodone. I reviewed her medications and she is not on anything that can cause recurrent pancreatitis that I can see. She has previously had her gallbladder removed. Her triglyceride level is not elevated. 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 She will be discharged home today, August 14, with a small amount of oxycodone 5 mg to take on an as-needed basis if she has any recurrent abdominal discomfort. She will follow-up with her PCP as soon as possible. Review of Systems 2 Review of Systems: Constitutional-no fever or chills ENT-no blurred vision, no double vision, no epistaxis, no sore throat Respiratory-no cough, no wheezing, no shortness of breath Cardiac-no palpitations, no chest pain, no syncope GI-no nausea, vomiting, diarrhea, melena, hematochezia -no urinary retention, no urinary incontinence, no dysuria, no hematuria Musculoskeletal-no joint pain, no muscle tenderness Skin-no bruising, no rashes, no pruritus Neuro-no isolated weakness, no paresthesia, no weakness Psych-no depression, no anxiety Physical Exam 2 Physical Exam: General-alert and oriented x3, no fever, no chills HEENT-head atraumatic and normocephalic, pupils equal and reactive to light, extraocular muscles intact Neck-no lymphadenopathy or thyromegaly, trachea midline Chest-clear to auscultation. No rales, wheezing or rhonchi Cardiac-regular rate and rhythm, normal S1 and S2 Abdomen-normal bowel sounds, no hepatosplenomegaly Extremities-no cyanosis, clubbing, or edema Neuro-cranial nerves II through XII intact, motor and sensory function within normal limits, strength symmetrical, no focal deficits Psych-normal affect, normal mood Results & Data Results & Data Vital Signs (Past 12 Hours) Vital Signs Temp Pulse Resp BP Pulse Ox O2 Del Method 08/15/23 07:41 36.7 C 53 L 16 134/77 96 Room Air Laboratory Results 08/13/23 06:00 08/15/23 06:39 PG Care Time/CCT Total # of Minutes Spent Total Time Spent with Patient: Total time spent is greater than 50% in coordination of care (as documented) at patient's floor/unit and/or counseling patient: Coding Level of Care Code 00412 SUB INP/OBS CARE 3/50MIN Diagnoses Acute recurrent pancreatitis K85.90 History of Whipple procedure Z90.410; Z90.49 Hypertension I10 GERD (gastroesophageal reflux disease) K21.9
--- NOTE | 2023-08-15 11:15 | Discharge Summary ---
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 She was noted to be hypertensive on arrival at 169/88 but was otherwise stable. Labs were significant for a lipase of [address] were [address] of the abd/pelvis w/IV con was read as consistent with mild pancreatitis but was otherwise unremarkable. Prior to admission the patient was given 1L NSS, 1mg IV dilaudid, and 2 doses of 4 mg IV zofran. At the time of the exam the patient was sitting in bed in no acute distress. Confirms the above history. Pain started in the epigastric region and radiated to the LUQ and the back. Associated with nausea but has not vomited. This is consistent with her previous episodes of pancreatitis. States she has noticed her stool to be kerrie colored over the past 72 hours. Denies recent fever, chills, chest pain, Cough, SOB, dysuria, hematuria, melena, diarrhea, LE swelling, and recent trauma. Please refer to Dr. Huitron's attestation for any changes to the treatment plan Principal Diagnosis Acute recurrent pancreatitis Discharge Exam General-alert and oriented x3, no fever, no chills HEENT-head atraumatic and normocephalic, pupils equal and reactive to light, extraocular muscles intact Neck-no lymphadenopathy or thyromegaly, trachea midline Chest-clear to auscultation. No rales, wheezing or rhonchi Cardiac-regular rate and rhythm, normal S1 and S2 Abdomen-normal bowel sounds, no hepatosplenomegaly Extremities-no cyanosis, clubbing, or edema Neuro-cranial nerves II through XII intact, motor and sensory function within n ormal limits, strength symmetrical, no focal deficits Psych-normal affect, normal mood Discharge Data Allergies Allergy/AdvReac Type Severity Reaction Status Date / Time Penicillins AdvReac Intermediate unsure Verified 08/12/23 11:43 Consultations 08/06/23 20:19 ED Decision to Admit Stat 08/06/23 20:30 Consult Gastroenterology Routine 08/11/23 14:30 Consult Pain Management Routine Procedures Performed Operation Date: 08/12/23 16:55 Actual Procedures p Esophagogastroduodenoscopy - Taran Queen Case, DO Ordered Studies 08/06/23 19:28 CT abd pelvis IV con only Stat 08/11/23 08:54 CT Abd and Pelvis [CT abd pelvis IV con only] Urgent Hospital Course (1) Acute recurrent pancreatitis: Now resolved. She previously has had cholecystectomy. Triglyceride levels are not markedly elevated. I reviewed her medications and I cannot find anything that could cause recurrent pancreatitis. She understands that her symptoms may recur. She will be discharged home today, August 06, with a small amount of oxycodone 5 mg to take as needed for any recurrent abdominal pain. She had previous Whipple procedure due to neuroendocrine tumor. Abdominal CT scan did not show any new findings. EGD was done by gastroenterology with normal result s. She denies alcohol use. (2) History of Whipple procedure: Due to Neuroendocrine tumor. Follows with Oncology in the [place] area (3) Hypertension: Stable. Continue current medical management (4) GERD (gastroesophageal reflux disease): Stable. She uses Protonix on an as needed basis Plan Home today, August 14. Oxycodone 5 mg as needed for any recurrent abdominal discomfort. Follow-up with PCP as soon as possible Total Time Total Time Spent Total Time Spent (In Minutes): 45 minutes Discharge Plan Discharge Items Patient Disposition: Home - Self-Care Reason For Visit: ACUTE PANCREATITIS Discharge Diagnosis: Acute recurrent pancreatitis Activity: Resume your previous activity Non-emergency contact: Primary Care Provider Follow-up/Referrals: Vernon Angulo DO [Primary Care Provider] - Diet: Regular and Low Fat Addtl Attending Provider Instructions: Take oxycodone as needed for any recurrent abdominal pain. See primary care provider soon as possible for follow Pending Studies at Discharge: No Stand-Alone Forms: My [employer], Smoking Cessation Medications and DC Order Prescriptions: New oxycodone 5 mg tablet 5 mg PO Q6H PRN (Reason: pain) Qty: 14 0RF Continued multivitamin [Multiple Vitamins] Tablet 1 tab PO DAILY Rx Instructions: unable to verify with pharmacy 06/02/23 Probiotic Gold Acidophilus 1 billion cell capsule 1,000 mmu cells PO DAILY Rx Instructions: unable to verify with pharmacy 06/02/23 krill oil 500 mg capsule 500 mg PO BID Rx Instructions: unable to verify with pharmacy 06/02/23 pantoprazole 40 mg tablet,delayed release (DR/EC) 40 mg PO BID PRN (Reason: Other) cholecalciferol (vitamin D3) 50 mcg (2,000 unit) capsule 50 mcg PO DAILY Rx Instructions: unable to verify with pharmacy 06/02/23 Creon 36,000-114,000- 180,000 unit capsule,delayed release(DR/EC) 2 cap PO QID Rx Instructions: per pharmacy its 2 cap QID instead of 2 caps TID administer with meals and/or snacks/2 tabs per meal and 2 with snacks amlodipine 5 mg tablet 5 mg PO .once daily Qty: 90 1RF acetaminophen [Tylenol Extra Strength] 500 mg tablet 500 mg PO Q6H PRN (Reason: Pain) Discharge Orders: Discharge Order (Routine); Ordered 08/15/23 Ordered By: Raz Gunter Admission Data Admit Date/Time: 08/07/23 16:45 Attending Provider: Raz Gunter Admit Provider: Andriy Valverde Primary Care Provider: Vernon Angulo Other Providers: Mckay Huitron; Taran Bowden; Niko Hu Other Interventions: Discharge Summary Assessment (RN) Last Done: 08/12/23 14:15 Coding Level of Care Code 48792 INP/OBS DISCH >30 MIN Diagnoses Acute recurrent pancreatitis K85.90 History of Whipple procedure Z90.410; Z90.49 Hypertension I10 GERD (gastroesophageal reflux disease) K21.9
== END 2023-08-15 13:17 | disposition home or self-care (01) | DRG 440 ==
LOC: ED 17:54 → 2N 17:54 → SUATTDRO 20:30 → 2N 22:23 → SUATTDRO 08-07 16:45 → 3N 08-12 03:21

== ENCOUNTER 2023-08-15 21:26 | Inpatient (IN) ==
[2023-08-15 22:04] LABS: Appearance Urine Clear (Clear); Bilirubin Urine Negative (Negative); Blood Urine Negative (Negative); Color Urine Yellow; Glucose Urine UA Negative (Negative); Ketones Urine Negative (Negative); Leukocyte Esterase Urine Negative (Negative); Nitrite Urine Negative (Negative); Protein Urine Negative (Negative); Urobilinogen Urine Negative (Negative)
[2023-08-15 22:05] LABS: Basophils # (auto) 0.02 K/uL (0.00-0.20); Basophils % (auto) 0.4 %; Eosinophils # (auto) 0.05 K/uL (0.00-0.50); Hematocrit (blood only) 32.6 % (37.0-47.0); Immature Granulocytes # (auto) 0.01 K/uL (0.01-0.20); Immature Granulocytes % (auto) 0.2 %; Lymphocytes # (auto) 1.44 K/uL (1.20-3.40); Lymphocytes % (auto) 29.9 %; Mean Corpuscular Hemoglobin 30.8 pg (25.0-34.0); Mean Corpuscular Hgb Conc 33.7 g/dL (32.0-36.0); Mean Corpuscular Volume 91.3 fL (80.0-100.0); Mean Platelet Volume 10.4 fL (9.4-12.4); Monocytes # (auto) 0.39 K/uL (0.11-0.59); Monocytes % (auto) 8.1 %; Neutrophils # (auto) 2.91 K/uL (1.40-6.50); Neutrophils % (auto) 60.4 %; Platelet Count 360 K/uL (130-400); RDW Coefficient of Variation 12.7 % (11.5-14.5); RDW Standard Deviation 42.2 fL (36.4-46.3); Red Blood Count 3.57 M/uL (4.20-5.40); White Blood Count 4.82 K/ul (4.8-10.8)
[2023-08-15 22:16] LABS: Pregnancy Test, Serum Negative (Negative)
[2023-08-15 22:21] LABS: BUN Creatinine Ratio 8.1 (10-20); Calcium 9.7 mg/dl (8.6-10.3); Creatinine Clr Calc Pharmacy 107.4 ml/min; Est GFR (African American) 120.2 ml/min; Est GFR (Non-African American) 103.7 ml/min; Potassium 3.3 mmol/L (3.5-5.1)
[2023-08-15 22:38] LABS: Albumin Globulin Ratio 1.5 (0.9-2); Albumin Level 4.1 gm/dl (3.4-5.0); Bilirubin,Total 0.2 mg/dl (0.2-1.0); Globulin 2.8 gm/dl (2.5-4.0); Total Protein 6.9 gm/dl (6.0-8.3)
[2023-08-15] MEDS: SODIUM CHLORIDE 0.9% 1,000 ML IV ONE ×2 (23:21→23:35)
--- NOTE | 2023-08-15 23:30 | Emergency Department Note ---
Impression & Plan Acute recurrent pancreatitis, Lupus, History of Whipple procedure, Epigastric abdominal pain ED Provider Note NAME: FELI HENNING AGE: 53 SEX: F : 1970 ARRIVES VIA: Walk-In INFORMANT: Patient ED PROVIDER(S): Vincent Weiss MD CHIEF COMPLAINT: Abdominal pain PLAN: Disposition: Admit MEDICAL DECISION MAKING: The patient is a pleasant 53-year-old woman with a past medical history of neuroendocrine tumor status post Whipple procedure in 2018, discoid lupus, recurrent pancreatitis, GERD who presents to the emergency department for evaluation of recurrence of epigastric abdominal pain rating to her left shoulder in the setting of being discharged from this facility this morning after admission from 08/06-08/14 for recurrence of pancreatitis. Patient denies any fevers, chills, cough or congestion. She denies any foods that she is aware of that triggers her symptoms. She reports she has had increasing recurrence of flares over the past several months. Of note, the patient did arrive to emergency department during time of high volume, acuity and prolonged emergency department waiting times. Critical pathways initiated from triage. On my evaluation the patient is uncomfortable no acute distress, afebrile with BP 170s/90s in the setting of pain and otherwise stable vital signs. She has mild epigastric tenderness without guarding or rebound. WBC and platelets within normal limits. H/H similar to prior. Chemistry without metabolic acidosis. LFTs unremarkable. Lipase is 2390 increased from 120s several days ago. ESR is mildly elevated at 47 and CRP at 2.5. UA without convincing evidence of infection. Given recurrence of the patient's pancreatitis she is with plan for admission for further management. IV fluid hydration, analgesia and antiemetics provided. CT performed on 08/05 and 08/10 and so deferred at this time. Case was discussed with [place]. [place]uitron, [facility] [place], who will evaluate the patient for admission. Further management per admitting team. WBC and platelets within normal limits. H/H similar to prior. Triage Nursing notes reviewed and agree them. Prior/external medical records reviewed Vital Signs: reviewed Differential diagnosis: Gastroenteritis, food borne illness, infections, appendicitis, diverticulitis, inflammatory bowel disease, obstruction, GI bleed, biliary pathology, volvulus, as well as other pathologies. ER treatment provided: See below. Diagnostics interpreted by me: ECG: NSR, 61 bpm, no ectopy, no overt ST elevation or depression. Cardiac Monitoring: An order for continuous cardiac monitoring was placed and demonstrated NSR, 61 bpm, no ectopy. Laboratory studies: See below Imaging studies: See below Consultation(s): Case was discussed with Dr. Huitron, [facility] [place], who will evaluate the patient for admission. HPI: The patient is a pleasant 53-year-old woman with a past medical history of neuroendocrine tumor status post Whipple procedure in 2018, discoid lupus, recurrent pancreatitis, GERD who presents to the emergency department for evaluation of recurrence of epigastric abdominal pain rating to her left shoulder in the setting of being discharged from this facility this morning after admission from 08/06-08/14 for recurrence of pancreatitis. Patient denies any fevers, chills, cough or congestion. She denies any foods that she is aware of that triggers her symptoms. She reports she has had increasing recurrence of flares over the past several months. ROS: See above HPI for pertinent positives & negatives. A total of 10 systems reviewed and were otherwise negative. VITALS:See Below PHYSICAL EXAMINATION: GENERAL: Awake, alert, uncomfortable-appearing, in no distress HENT: Normocephalic, atraumatic. Oropharynx with dry mucous membranes and otherwise unremarkable. EYES: Normal conjunctiva. Sclera non-icteric. NECK: Supple. No nuchal rigidity. FROM. No JVD. RESPIRATORY: Clear to auscultation. CARDIAC: Regular rate, normal rhythm. Extremities warm and well perfused. Pulses equal. ABDOMEN: Soft, non-distended. Mild epigastric tenderness to palpation. No rebound or guarding. MUSCULOSKELETAL: Chest examination reveals no tenderness. The back is symmetrical on inspection without obvious abnormality. There is no CVA tenderness to palpation. No joint edema. LOWER EXTREMITIES: Calves are equal size bilaterally and non-tender. No edema. No discoloration. NEURO: Normal sensorium. No sensory or motor deficits noted. SKIN: No rash or jaundice noted. 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 diagnosis - Ampulla of Vater - s/p whipple 2018 Bone Met L posterior Pelvis 2019 - s/p cyberknife Surgical History History of vein stripping 2006 History of Whipple procedure Dec 2017 Family History Mother Non-Hodgkin lymphoma Heart disease Father Alcohol abuse Brain tumor Social History Smoking Status: Former smoker Tobacco Type: Cigarettes Age Started Using Tobacco: 17; Age Quit Using Tobacco: 47; packs per day: 0.50; Second Hand Exposure: No; Do You Dip or Chew Tobacco: No; Hx Alcohol Use: No Hx Substance Use: No Preferred Language: Romanian Communication Ability: Effective Visual Impairment: Diminished Hearing Ability: Normal Planer Operator Required: No Beliefs That Will Affect Care: None marital status: Current Living Situation: Spouse current occupational status: 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 Feels Safe at Home: Yes Childhood Exposure to Second-Hand Smoke: Yes Diet: regular caffeine: Yes Dental Care, Regularly: No Physical Activity Frequency: Daily Physical Activity Frequency Comment: active lifestyle Seatbelt Use: always Sunscreen Use: Yes Do you think of yourself as: straight/heterosexual Assistive Devices: None Allergies Allergies Allergy/AdvReac Type Severity Reaction Status Date / Time Penicillins AdvReac Intermediate unsure Verified 08/16/23 00:25 Home Meds Home Medications Medication Instructions Recorded Confirmed Lactobacillus acidophilus 1 1,000 mmu cells PO DAILY 03/04/23 08/16/23 billion cell capsule (Probiotic Gold Acidophilus) cholecalciferol (vitamin D3) 50 50 mcg PO DAILY 03/04/23 08/16/23 mcg (2,000 unit) capsule krill oil 500 mg capsule 500 mg PO BID 03/04/23 08/16/23 [id number] 2 cap PO QID 03/04/23 08/16/23 36,000-114,000-180,000 unit capsule,delay rel (Creon) multivitamin (Multiple Vitamins 1 tab PO DAILY 03/04/23 08/16/23 tablet) pantoprazole 40 mg tablet,delayed 40 mg PO BID PRN Other 03/04/23 08/16/23 release acetaminophen 500 mg tablet 500 mg PO Q6H PRN Pain 07/08/23 08/16/23 (Tylenol Extra Strength) Previous Rx's Medication Instructions Recorded amlodipine 5 mg tablet 5 mg PO .once daily #90 tabs 06/08/23 oxycodone 5 mg tablet 5 mg PO Q6H PRN pain #14 tabs 08/15/23 Results & Data (ED) Vital Signs Vital Signs - 24 hr 08/15/23 21:28 08/15/23 22:28 08/15/23 23:24 Temperature 36.9 C Temperature Source Temporal Artery Scan Pulse Rate 68 61 Pulse Rate [Apical] 61 Respiratory Rate 20 19 Respiratory Effort / Characteristics Non-Labored Spontaneous Non-Labored Spontaneous Respiratory Depth Normal Normal Blood Pressure 177/95 H Blood Pressure [Right Arm] 148/89 H Blood Pressure Mean 122 Blood Pressure Mean [Right Arm] 108 Blood Pressure Position [Right Arm] Semi-fowlers Pulse Oximetry 100 99 Oxygen Delivery Method Room Air Room Air Sepsis Recent Fever Within 48 Hours No Sepsis New/Unexplained Change in Mental Status N/A Sepsis Action Taken by Nursing No Action Required 08/16/23 01:30 Temperature Temperature Source Pulse Rate Pulse Rate [Apical] 54 L Respiratory Rate 12 Respiratory Effort / Characteristics Respiratory Depth Blood Pressure Blood Pressure [Right Arm] 156/95 H Blood Pressure Mean Blood Pressure Mean [Right Arm] 115 Blood Pressure Position [Right Arm] Pulse Oximetry 96 Oxygen Delivery Method Room Air Sepsis Recent Fever Within 48 Hours Sepsis New/Unexplained Change in Mental Status Sepsis Action Taken by Nursing Laboratory Data Attestation: I reviewed the patient's lab results. 08/15/23 21:36 08/15/23 21:36 Lab Results 08/15/23 Range/Units 21:36 WBC 4.82 (4.8-10.8) K/ul RBC 3.57 L (4.20-5.40) M/uL Hgb 11.0 L (12.0-16.0) g/dl Hct 32.6 L (37.0-47.0) % MCV 91.3 (80.0-100.0) fL MCH 30.8 (25.0-34.0) pg MCHC 33.7 (32.0-36.0) g/dL RDW Std Deviation 42.2 (36.4-46.3) fL RDW Coeff of Filomena 12.7 (11.5-14.5) % Plt Count 360 (130-400) K/uL MPV 10.4 (9.4-12.4) fL Immature Gran % (Auto) 0.2 % Neut % (Auto) 60.4 % Lymph % (Auto) 29.9 % Ralls % (Auto) 8.1 % Eos % (Auto) 1.0 % Baso % (Auto) 0.4 % Neut # (Auto) 2.91 (1.40-6.50) K/uL Lymph # (Auto) 1.44 (1.20-3.40) K/uL Ralls # (Auto) 0.39 (0.11-0.59) K/uL Eos # (Auto) 0.05 (0.00-0.50) K/uL Baso # (Auto) 0.02 (0.00-0.20) K/uL Immature Gran # (Auto) 0.01 (0.01-0.20) K/uL ESR 47 H (0-30) mm/hr Sodium 145 (136-145) mmol/L Potassium 3.3 L (3.5-5.1) mmol/L Chloride 108 H (98-107) mmol/L Carbon Dioxide 27 (21-32) mmol/L Anion Gap 10 (3-11) BUN 5 L (6-23) mg/dl Creatinine 0.62 (0.6-1.2) mg/dl Est Cr Clr Drug Dosing 107.4 ml/min Est GFR ( Amer) 120.2 ml/min Est GFR (Non-Af Amer) 103.7 ml/min BUN/Creatinine Ratio 8.1 L (10-20) Glucose 138 H (70-99(Fasting)) mg/dl Calcium 9.7 (8.6-10.3) mg/dl Total Bilirubin 0.2 (0.2-1.0) mg/dl AST 14 (13-39) U/L ALT 11 (7-52) U/L Alkaline Phosphatase 65 (34-104) U/L C-Reactive Protein 2.51 H (0-0.5) mg/dl Total Protein 6.9 (6.0-8.3) gm/dl Albumin 4.1 (3.4-5.0) gm/dl Globulin 2.8 (2.5-4.0) gm/dl Albumin/Globulin Ratio 1.5 (0.9-2) Lipase 2390 H (11-82) U/L HCG, Qual Negative (Negative) Urine Color Yellow Urine Appearance Clear (Clear) Urine pH 8.0 H (4.5-7.5) Ur Specific [place] 1.010 (1.000-1.030) Urine Protein Negative (Negative) Urine Glucose (UA) Negative (Negative) Urine Ketones Negative (Negative) Urine Blood Negative (Negative) Urine Nitrite Negative (Negative) Urine Bilirubin Negative (Negative) Urine Urobilinogen Negative (Negative) Ur Leukocyte Esterase Negative (Negative) Administered Medications Lactated Ringer's (Lr) 1,000 mls @ 150 mls/hr IV .Q6H40M LIZA Stop: 09/15/23 01:44 Last Infusion: 08/16/23 02:44 Dose: 150 mls/hr Documented By: Admin: 08/16/23 01:42 Dose: 125 mls/hr Documented By: AB Potassium Chloride (K Alex / Wtr) 10 meq in 100 mls @ 100 mls/hr IV Q1H LIZA Stop: 08/16/23 04:29 Last Admin: 08/16/23 02:47 Dose: 100 mls/hr Documented By: AB Discontinued Medications Hydromorphone HCl (Hydromorphone Inj 1 Mg/Ml Syringe) 1 mg IV NOW STA Stop: 08/16/23 01:43 Last Admin: 08/16/23 01:45 Dose: 1 mg Documented By: AB Sodium Chloride (Nss) 1,000 mls @ 999 mls/hr IV .Q1H1M ONE Stop: 08/15/23 23:45 Last Infusion: 08/16/23 01:29 Dose: Infused Documented By: Admin: 08/15/23 23:21 Dose: 999 mls/hr Documented By: AB Acetaminophen (Ofirmev) 1,000 mg in 100 mls @ 400 mls/hr IV NOW STA Stop: 08/15/23 23:41 Last Infusion: 08/15/23 23:51 Dose: Infused Documented By: Admin: 08/15/23 23:33 Dose: 400 mls/hr Documented By: AB Sodium Chloride (Nss) 1,000 mls @ 999 mls/hr IV .Q1H1M ONE Stop: 08/16/23 00:28 Last Infusion: 08/16/23 01:29 Dose: Infused Documented By: Admin: 08/15/23 23:35 Dose: 999 mls/hr Documented By: Morphine Sulfate (Morphine Sulfate 4 Mg/Ml 1 Ml Carp\Vial) 6 mg IV NOW STA Stop: 08/15/23 23:28 Last Admin: 08/15/23 23:33 Dose: 6 mg Documented By: Ondansetron HCl (Ondansetron Inj 2 Mg/Ml 2 Ml Vial) 4 mg IV NOW STA Stop: 08/15/23 23:29 Last Admin: 08/15/23 23:34 Dose: 4 mg Documented By: Discharge Plan Visit Data Chief Complaint: Flank Pain Stated Complaint: LT SIDE PAIN ED Provider: Vincent Weiss Discharge Problem: Acute recurrent pancreatitis, Lupus, History of Whipple procedure, Epigastric abdominal pain Patient Disposition: Admitted As Inpatient Discharge Instructions Interventions: ED Discharge Assessment Last Done: 08/16/23 02:18
[2023-08-15] MEDS: MoRPHine SULFATE 4 MG/ML 1 ML CARP\\VIAL IV STA (23:33)
[2023-08-15] MEDS: ACETAMINOPHEN 1,000 MG/100 ML VIAL IV STA (23:33)
[2023-08-15] MEDS: ONDANSETRON INJ 2 MG/ML 2 ML VIAL IV STA (23:34)
[2023-08-16 00:44] LABS: C Reactive Protein 2.51 mg/dl (0-0.5)
--- NOTE | 2023-08-16 01:36 | History & Physical Report ---
Date of Service August 16, 2023 Assessment & Plan (1) Acute recurrent pancreatitis: Plan: - recurrent pancreatitis s/p Whipple procedure for neuroendocrine tumor - MRCP 06/16 reviewed from 06/17/2023 and was consistent with acute pancreatitis - CT A&P with 08/11/23 with acute pancreatitis - EGD was done on 08/12/23 which was unremarkable - s/p 2L NSS in ED- will continue fluids @ 1.5x maintenance LR @150ml/hr - NPO - GI consulted - Pain regimen with Dilaudid 0.5mg pain 6-8, 1mg pain 9-10 - resume home Creon when appropriate (2) Hypertension: Plan: - hold amlodipine while NPO; resume once appropriate (3) GERD (gastroesophageal reflux disease): Plan: - hold home PPI; will give IV while NPO. Resume PO when appropriate (4) Hypokalemia: Plan: - K=3.3; repleted on admission - continue to trend Plan Diet: NPO Code: Full VTE Prophylaxis: Lovenox History of Present Illness Primary Care Provider: Vernon Angulo DO 53 year old female with a past medical history of SLE, recurrent acute pancreatitis, 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 She states that she continued to have back pain; mid thoracic between scapula. Notes that prior to leaving she did eat a chicken salad sandwich. When she got home she said that pain started to get worse, first with back pain and then with epigastric. Tried Tylenol and oxycodone without relief which prompted her to come back in. In ED lipase= 2390, CRP= 2.51, ESR= 47. S/p 2L NSS Allergies Allergy/AdvReac Type Severity Reaction Status Date / Time Penicillins AdvReac Intermediate unsure Verified 08/16/23 00:25 Home Medications Medication Instructions Recorded Confirmed Type Lactobacillus acidophilus 1 1,000 mmu cells PO DAILY 03/04/23 08/16/23 History billion cell capsule (Probiotic Gold Acidophilus) cholecalciferol (vitamin D3) 50 50 mcg PO DAILY 03/04/23 08/16/23 History mcg (2,000 unit) capsule krill oil 500 mg capsule 500 mg PO BID 03/04/23 08/16/23 History ayvwkm-tifeqsiu-ynsadgz 2 cap PO QID 03/04/23 08/16/23 History 36,000-114,000-180,000 unit capsule,delay rel (Creon) multivitamin (Multiple Vitamins 1 tab PO DAILY 03/04/23 08/16/23 History tablet) pantoprazole 40 mg tablet,delayed 40 mg PO BID PRN Other 03/04/23 08/16/23 His tory release amlodipine 5 mg tablet 5 mg PO .once daily #90 tabs 06/08/23 08/16/23 Rx acetaminophen 500 mg tablet 500 mg PO Q6H PRN Pain 07/08/23 08/16/23 History (Tylenol Extra Strength) oxycodone 5 mg tablet 5 mg PO Q6H PRN pain #14 tabs 08/15/23 08/16/23 Rx Past Med/Surg History Medical History Encounter for pre-operative examination Acute pancreatitis Recurrent acute pancreatitis Kidney congenitally absent, right Pancreatitis April 2015 Discoid lupus Basal cell carcinoma S/P MOHs (L ankle and L upper back 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 diagnosis - Ampulla of Vater - s/p whipple 2018 Bone Met L posterior Pelvis 2020 - s/p cyberknife Surgical History History of vein stripping 2006 History of Whipple procedure Dec 2017 Family History Mother Non-Hodgkin lymphoma Heart disease Father Alcohol abuse Brain tumor Social History Smoking Status: Former smoker Tobacco Type: Cigarettes Age Started Using Tobacco: 17; Age Quit Using Tobacco: 47; packs per day: 0.50; Second Hand Exposure: No; Do You Dip or Chew Tobacco: No; Hx Alcohol Use: No Hx Substance Use: No Preferred Language: Ivorian Communication Ability: Effective Visual Impairment: Diminished Hearing Ability: Normal Laborer Chemical Processing Required: No Beliefs That Will Affect Care: None marital status: Current Living Situation: Spouse current occupational status: retired 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 Other Information That Helps Us Care for You: No Feels Safe at Home: Yes Safety Concerns: Feels Safe At This Time Childhood Exposure to Second-Hand Smoke: Yes Diet: regular caffeine: Yes Dental Care, Regularly: No Physical Activity Frequency: Daily Physical Activity Frequency Comment: active lifestyle Seatbelt Use: always Sunscreen Use: Yes Do you think of yourself as: straight/heterosexual Assistive Devices: None Review of Systems Review of Systems: As per above Physical Exam Physical Exam: Constitutional: well-appearing, no acute distress HEENT: NCAT, no conjunctival injection CV: regular rhythm, no murmur appreciated, extremities well-perfused, no LE edema Resp: CTABL, no wheezes/rales/rhonchi appreciated, no increased work of breathing GI: soft, nondistended, + epigastric tenderness, BS normoactive MSK: no gross deformities appreciated Skin: warm, dry, no rash appreciated Neuro: alert, oriented, no focal neurologic deficit appreciated Results & Data Results & Data Vital Signs (Past 12 Hours) Vital Signs Temp Pulse Pulse Resp BP BP Pulse Ox 08/15/23 23:24 61 19 148/89 H 99 08/15/23 22:28 61 08/15/23 21:28 36.9 C 68 20 177/95 H 100 O2 Del Method 08/15/23 23:24 Room Air 08/15/23 22:28 08/15/23 21:28 Room Air Supervising Physician Co-Signing Physician Notes Attending addendum: I have physically seen this patient, have supervised the medical residents activities, and agree with the H&P unless as otherwise noted. Assessment and Plan: Recurrent pancreatitis- CTs from 05/1523, 06/13/2023, 08/06/2023 and 08/11/2023 reviewed, and suggestive of pancreatitis MRCP from 06/17/2023 reviewed History of Whipple surgery NPO Serial CBC with differential, chemistry profile, magnesium and lipase levels Consult gastroenterology Hypertension- Hold amlodipine while n.p.o. and blood pressure is relatively well-controlled GERD- Change PPI to IV Protonix Hypokalemia- Potassium 3.3 on admission repleting IV, and recheck laboratories in the a.m. IV fluids as noted Resident Activity Tracking Resident Involvement: Resident Care Provided Care Provided: Adult Hospital Medicine
[2023-08-16] MEDS: LACTATED RINGER'S 1,000 ML IV SCH (01:42)
[2023-08-16] MEDS: HYDROmorphone INJ 1 MG/ML SYRINGE IV STA (01:45)
[2023-08-16] MEDS ORDERED: HYDROmorphone INJ 0.5 MG/0.5 ML SYR IV PRN (02:17)
[2023-08-16] MEDS: POTASSIUM CHLORIDE / WTR 10 MEQ/100 ML PLCT IV SCH (02:47)
[2023-08-16] MEDS: HYDROmorphone INJ 1 MG/ML SYRINGE IV PRN (05:09)
[2023-08-16] MEDS: ONDANSETRON INJ 2 MG/ML 2 ML VIAL IV PRN (08:25)
[2023-08-16] MEDS ORDERED: PANTOprazole 40 MG in SYRINGE 0 ML IV SCH (11:00)
[2023-08-16] MEDS: D5NSS + 20MEQ KCL 20 MEQ/1,000 ML BAG IV SCH (11:00)
[2023-08-16] MEDS: FAMOTIDINE 20MG IV PUSH 20 MG/5 ML SYR IV SCH (11:00)
[2023-08-16] MEDS: ENOXAPARIN INJ 40 MG/0.4 ML SYR SQ SCH (11:01)
[2023-08-16] MEDS: HYDROmorphone INJ 2 MG/ML SYR/VIAL IV PRN (11:43)
--- NOTE | 2023-08-16 14:05 | Hospitalist Progress Note ---
Date of Service August 16, 2023 Assessment & Plan (1) Acute recurrent pancreatitis: Plan: Admission lipase 2390. She has had multiple hospitalizations due to recurrent pancreatitis. She does have a history of pancreatic neuroendocrine carcinoma and previous Whipple's procedure in the [place] area. Gastroenterology consultation is pending. Pantoprazole is the only medication that she is taking that has been associated with pancreatitis. This has been discontinued and she is now on famotidine. She underwent EGD on August 11 with normal results. Most recent MRCP was on June 16 of this year with unremarkable results. Continue n.p.o. status, parenteral narcotics for pain control, IV fluids (2) Hypokalemia: Plan: Potassium has been added to the IV fluids. Serial labs (3) Hypertension: Plan: Stable. Continue current medical management (4) GERD (gastroesophageal reflux disease): Plan: Protonix has been discontinued. She is now on famotidine Plan To be determined Admission and Anticipated Discharge Date Admission Date: August 16, 2023 Subjective Alert and oriented. Tearful due to abdominal pain. Dilaudid frequency has been uptitrated. Unfortunately she did not last at home very long. Lipase is now 2390. Protonix has pancreatitis listed as a possible adverse reaction and it has been discontinued. Will use famotidine in its place. Potassium added to IV fluids. GI consultation pending. Review of Systems 2 Review of Systems: Constitutional-no fever or chills ENT-no blurred vision, no double vision, no epistaxis, no sore throat Respiratory-no cough, no wheezing, no shortness of breath Cardiac-no palpitations, no chest pain, no syncope GI-recurrent nausea and epigastric pain. No vomiting, diarrhea, melena, hematochezia -no urinary retention, no urinary incontinence, no dysuria, no hematuria Musculoskeletal-no joint pain, no muscle tenderness Skin-no bruising, no rashes, no pruritus Neuro-no isolated weakness, no paresthesia Psych-no depression, no anxiety Physical Exam 2 Physical Exam: General-alert and oriented x3, no fever, no chills HEENT-head atraumatic and normocephalic, pupils equal and reactive to light, extraocular muscles intact Neck-no lymphadenopathy or thyromegaly, trachea midline Chest-clear to auscultation. No rales, wheezing or rhonchi Cardiac-regular rate and rhythm, normal S1 and S2 Abdomen-normal bowel sounds, no hepatosplenomegaly. Tender to palpation in the epigastric region Extremities-no cyanosis, clubbing, or edema Neuro-cranial nerves II through XII intact, motor and sensory function within normal limits, strength symmetrical, no focal deficits Psych-depressed. Tearful Results & Data Results & Data Vital Signs (Past 12 Hours) Vital Signs Temp Pulse Pulse Pulse Resp BP Pulse Ox 08/16/23 11:57 36.4 C L 61 18 106/67 94 08/16/23 08:37 62 08/16/23 07:57 36.5 C 56 L 16 160/79 H 98 08/16/23 07:56 08/16/23 07:16 53 L 08/16/23 05:03 36.6 C 55 L 18 141/84 H 96 O2 Del Method 08/16/23 11:57 Room Air 08/16/23 08:37 08/16/23 07:57 Room Air 08/16/23 07:56 Room Air 08/16/23 07:16 08/16/23 05:03 Room Air Laboratory Results 08/15/23 21:36 08/15/23 21:36 PG Care Time/CCT Total # of Minutes Spent Total Time Spent with Patient: Total time spent is greater than 50% in coordination of care (as documented) at patient's floor/unit and/or counseling patient: Coding Level of Care Code 80039 SUB INP/OBS CARE 3/50MIN Diagnoses Acute recurrent pancreatitis K85.90 Hypokalemia E87.6 Hypertension I10 GERD (gastroesophageal reflux disease) K21.9
--- NOTE | 2023-08-16 15:46 | Electrocardiogram Report ---
Test Reason : Blood Pressure : / mmHG Vent. Rate : 061 BPM Atrial Rate : 061 BPM P-R Int : 140 ms QRS Dur : 074 ms QT Int : 368 ms P-R-T Axes : -19 104 080 degrees QTc Int : 370 ms Normal sinus rhythm Rightward axis Low voltage QRS Septal infarct (cited on or before 02-JUN-2023) Abnormal ECG When compared with ECG of 06-AUG-2023 18:29, Nonspecific T wave abnormality, worse in Inferior leads QRS voltage has decreased QRS axis Shifted right Confirmed by Solomon Valladares ([id number]) on 08/16/2023 3:45:50 PM Referred By: REFERRED SELF Confirmed By:Solomon Valladares
[2023-08-17] MEDS ORDERED: Nursing to Pharmacy Communication SCH (01:30)
--- NOTE | 2023-08-17 02:08 | Billing Data ---
Date of Service August 17, 2023 Coding Level of Care Code 03556 INT INP/OBS CARE
[2023-08-17 06:06] LABS: Basophils # (auto) 0.01 K/uL (0.00-0.20); Basophils % (auto) 0.3 %; Eosinophils # (auto) 0.09 K/uL (0.00-0.50); Eosinophils % (auto) 2.3 %; Hematocrit (blood only) 27.4 % (37.0-47.0); Lymphocytes # (auto) 1.09 K/uL (1.20-3.40); Lymphocytes % (auto) 28.3 %; Mean Corpuscular Hemoglobin 30.6 pg (25.0-34.0); Mean Corpuscular Hgb Conc 32.8 g/dL (32.0-36.0); Mean Corpuscular Volume 93.2 fL (80.0-100.0); Mean Platelet Volume 10.5 fL (9.4-12.4); Monocytes # (auto) 0.34 K/uL (0.11-0.59); Monocytes % (auto) 8.8 %; Neutrophils # (auto) 2.32 K/uL (1.40-6.50); Neutrophils % (auto) 60.3 %; Platelet Count 289 K/uL (130-400); RDW Coefficient of Variation 13.1 % (11.5-14.5); RDW Standard Deviation 44.7 fL (36.4-46.3); Red Blood Count 2.94 M/uL (4.20-5.40); White Blood Count 3.85 K/ul (4.8-10.8)
[2023-08-17 06:28] LABS: Albumin Globulin Ratio 1.7 (0.9-2); Albumin Level 3.3 gm/dl (3.4-5.0); BUN Creatinine Ratio 3.9 (10-20); Bilirubin,Total 0.2 mg/dl (0.2-1.0); Calcium 8.1 mg/dl (8.6-10.3); Creatinine Clr Calc Pharmacy 130.6 ml/min; Est GFR (African American) 128.1 ml/min; Est GFR (Non-African American) 110.6 ml/min; Globulin 1.9 gm/dl (2.5-4.0); Magnesium 1.4 mg/dl (1.7-2.4); Potassium 3.7 mmol/L (3.5-5.1); Total Protein 5.2 gm/dl (6.0-8.3)
--- NOTE | 2023-08-17 11:02 | Gastrointestinal Consultation ---
Date of Consultation August 17, 2023 Assessment & Plan (1) History of Whipple procedure: (2) Epigastric abdominal pain: (3) Acute recurrent pancreatitis: Plan -NPO. -Supportive care with IV fluids/analgesics/antiemetics. -Consider tertiary referral to pancreatic specialist and follow up with oncologist upon d/c. -Okay to hold PPI temporarily but this is recommended to be used concurrently with Creon and should be resumed upon discharge. Supervising Physician Co-Signing Physician Notes Agree with LETICIA Maurice as above Interviewed and examined patient and agree with above Abd: Soft, Tender, ND, +BS Continue current therapy and supportive care Recommend referral to tertiary center secondary to history of Whipple's procedure and recurrent pancreatitis History of Present Illness Reason for Consultation: Recurrent pancreatitis Requesting Physician: Dr. Ford Attending Physician: Raz Gunter MD History of Present Illness Patient is a 53 y.o. CF with a history of pancreatic NET s/p Whipple at [facility] readmitted to [facility] with recurrent pancreatitis. She was discharged home on 08/14 and returned back the hospital with intractable epigastric abdominal pain and back pain despite PO opioid analgesics. Lipase on arrival was noted to be 2390. She has been placed on NPO status and PPI was discontinued by primary team as this medication has been linked to pancreatitis, although only in case reports and she has been taking this medication for over a year. Symptoms of abdominal pain have improved although she reports frustration with recurrent pain symptoms. The day she was discharged, she did consume a chicken salad sandwich prior to pain exacerbation. Has been on Creon 72,000 units with meals and 1 with snacks. Currently, she is resting comfortably in bed. No f/c, n/v or other significant abdominal pain at present. +bloating. Allergies Allergy/AdvReac Type Severity Reaction Status Date / Time Penicillins AdvReac Intermediate unsure Verified 08/16/23 00:25 Home Medications Medication Instructions Recorded Confirmed Type Lactobacillus acidophilus 1 1,000 mmu cells PO DAILY 03/04/23 08/16/23 History billion cell capsule (Probiotic Gold Acidophilus) cholecalciferol (vitamin D3) 50 50 mcg PO DAILY 03/04/23 08/16/23 History mcg (2,000 unit) capsule krill oil 500 mg capsule 500 mg PO BID 03/04/23 08/16/23 History faqivo-zrnhxfnp-xqbenbv 2 cap PO QID 03/04/23 08/16/23 History 36,000-114,000-180,000 unit capsule,delay rel (Creon) multivitamin (Multiple Vitamins 1 tab PO DAILY 03/04/23 08/16/23 History tablet) pantoprazole 40 mg tablet,delayed 40 mg PO BID PRN Other 03/04/23 08/16/23 History release amlodipine 5 mg tablet 5 mg PO .once daily #90 tabs 06/08/23 08/16/23 Rx acetaminophen 500 mg tablet 500 mg PO Q6H PRN Pain 07/08/23 08/16/23 History (Tylenol Extra Strength) oxycodone 5 mg tablet 5 mg PO Q6H PRN pain #14 tabs 08/15/23 08/16/23 Rx Patient History Medical History Encounter for pre-operative examination Acute pancreatitis Recurrent acute pancreatitis Kidney congenitally absent, right Pancreatitis April 2015 Discoid lupus Basal cell carcinoma S/P MOHs (L ankle and L upper back 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 diagnosis - Ampulla of Vater - s/p whipple 2018 Bone Met L posterior Pelvis 2020 - s/p cyberknife Surgical History History of vein stripping 2006 History of Whipple procedure Dec 2017 Family History Mother Non-Hodgkin lymphoma Heart disease Father Alcohol abuse Brain tumor Social History Smoking Status: Former smoker Tobacco Type: Cigarettes Age Started Using Tobacco: 17; Age Quit Using Tobacco: 47; packs per day: 0.50; Second Hand Exposure: No; Do You Dip or Chew Tobacco: No; Hx Alcohol Use: No Hx Substance Use: No Preferred Language: [place]al[place] Communication Ability: Effective Visual Impairment: Diminished Hearing Ability: Normal Quick Mixer Operator Required: No Beliefs That Will Affect Care: None marital status: Current Living Situation: Spouse current occupational status: retired 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 Feels Safe at Home: Yes Childhood Exposure to Second-Hand Smoke: Yes Diet: regular caffeine: Yes Dental Care, Regularly: No Physical Activity Frequency: Daily Physical Activity Frequency Comment: active lifestyle Seatbelt Use: always Sunscreen Use: Yes Do you think of yourself as: straight/heterosexual Assistive Devices: None Review of Systems Review of Systems: All systems reviewed & are unremarkable except as noted in HPI & below Physical Exam Constitutional: WD/WN, vitals as above Eyes: EOM intact bilaterally Neck: normal appearance Respiratory: normal respiratory effort, lungs clear to auscultation Cardiovascular: Rate/Rhythm: regular rate and regular rhythm Heart Sounds: no gallop and no murmur Gastrointestinal (Abdomen): normal bowel sounds, soft, nontender, no hepatosplenomegaly Inspection/Auscultation: + abdomen distended Musculoskeletal: Extremities: no cyanosis no lower extremity edema Skin: no rashes, warm and dry Neurologic: moves all extremities Psychiatric: A+Ox3, euthymic affect Results & Data Vital Signs (Past 12 Hours) Vital Signs Temp Pulse Pulse Resp BP Pulse Ox O2 Del Method 08/17/23 07:24 Room Air 08/17/23 07:07 36.4 C L 65 16 129/79 93 Room Air 08/17/23 07:03 56 L 08/17/23 03:26 36.6 C 64 18 145/75 H 93 Room Air 08/17/23 00:11 36.8 C 69 20 151/93 H 96 Room Air Diagnostic Findings Laboratory Results WBC 3.85 K/ul (4.8-10.8) L 08/17/23 05:29 RBC 2.94 M/uL (4.20-5.40) L 08/17/23 05:29 Hgb 9.0 g/dl (12.0-16.0) L 08/17/23 05:29 Hct 27.4 % (37.0-47.0) L 08/17/23 05:29 MCV 93.2 fL (80.0-100.0) 08/17/23 05:29 MCH 30.6 pg (25.0-34.0) 08/17/23 05:29 MCHC 32.8 g/dL (32.0-36.0) 08/17/23 05:29 RDW Std Deviation 44.7 fL (36.4-46.3) 08/17/23 05:29 RDW Coeff of Filomena 13.1 % (11.5-14.5) 08/17/23 05:29 Plt Count 289 K/uL (130-400) 08/17/23 05:29 MPV 10.5 fL (9.4-12.4) 08/17/23 05:29 Immature Gran % (Auto) 0.0 % 08/17/23 05:29 Neut % (Auto) 60.3 % 08/17/23 05:29 Lymph % (Auto) 28.3 % 08/17/23 05:29 [place] % (Auto) 8.8 % 08/17/23 05:29 Eos % (Auto) 2.3 % 08/17/23 05:29 Baso % (Auto) 0.3 % 08/17/23 05:29 Neut # (Auto) 2.32 K/uL (1.40-6.50) 08/17/23 05:29 Lymph # (Auto) 1.09 K/uL (1.20-3.40) L 08/17/23 05:29 [place] # (Auto) 0.34 K/uL (0.11-0.59) 08/17/23 05:29 Eos # (Auto) 0.09 K/uL (0.00-0.50) 08/17/23 05:29 Baso # (Auto) 0.01 K/uL (0.00-0.20) 08/17/23 05:29 Immature Gran # (Auto) 0.00 K/uL (0.01-0.20) L 08/17/23 05:29 ESR 47 mm/hr (0-30) H 08/15/23 21:36 Sodium 142 mmol/L (136-145) 08/17/23 05:29 Potassium 3.7 mmol/L (3.5-5.1) 08/17/23 05:29 Chloride 110 mmol/L (98-107) H 08/17/23 05:29 Carbon Dioxide 27 mmol/L (21-32) 08/17/23 05:29 Anion Gap 5 (3-11) 08/17/23 05:29 BUN 2 mg/dl (6-23) L 08/17/23 05:29 Creatinine 0.51 mg/dl (0.6-1.2) L 08/17/23 05:29 Est Cr Clr Drug Dosing 130.6 ml/min 08/17/23 05:29 Est GFR ( Amer) 128.1 ml/min 08/17/23 05:29 Est GFR (Non-Af Amer) 110.6 ml/min 08/17/23 05:29 BUN/Creatinine Ratio 3.9 (10-20) L 08/17/23 05:29 Glucose 114 mg/dl (70-99(Fasting)) H 08/17/23 05:29 Calcium 8.1 mg/dl (8.6-10.3) L 08/17/23 05:29 Magnesium 1.4 mg/dl (1.7-2.4) L 08/17/23 05:29 Total Bilirubin 0.2 mg/dl (0.2-1.0) 08/17/23 05:29 AST 12 U/L (13-39) L 08/17/23 05:29 ALT 10 U/L (7-52) 08/17/23 05:29 Alkaline Phosphatase 51 U/L (34-104) 08/17/23 05:29 C-Reactive Protein 2.51 mg/dl (0-0.5) H 08/15/23 21:36 Total Protein 5.2 gm/dl (6.0-8.3) L D 08/17/23 05:29 Albumin 3.3 gm/dl (3.4-5.0) L 08/17/23 05:29 Globulin 1.9 gm/dl (2.5-4.0) L 08/17/23 05:29 Albumin/Globulin Ratio 1.7 (0.9-2) 08/17/23 05:29 Lipase 450 U/L (11-82) H 08/17/23 05:29 HCG, Qual Negative (Negative) 08/15/23 21:36 Urine Color Yellow 08/15/23 21:36 Urine Appearance Clear (Clear) 08/15/23 21:36 Urine pH 8.0 (4.5-7.5) H 08/15/23 21:36 Ur Specific [place] 1.010 (1.000-1.030) 08/15/23 21:36 Urine Protein Negative (Negative) 08/15/23 21:36 Urine Glucose (UA) Negative (Negative) 08/15/23 21:36 Urine Ketones Negative (Negative) 08/15/23 21:36 Urine Blood Negative (Negative) 08/15/23 21:36 Urine Nitrite Negative (Negative) 08/15/23 21:36 Urine Bilirubin Negative (Negative) 08/15/23 21:36 Urine Urobilinogen Negative (Negative) 08/15/23 21:36 Ur Leukocyte Esterase Negative (Negative) 08/15/23 21:36 PG Care Time/CCT Total # of Minutes Spent Total Time Spent with Patient: Total time spent is greater than 50% in coordination of care (as documented) at patient's floor/unit and/or counseling patient: Coding Level of Care Code 16373 INT INP/OBS CARE MIN Diagnoses History of Whipple procedure Z90.410; Z90.49 Epigastric abdominal pain R10.13 Acute recurrent pancreatitis K85.90
--- NOTE | 2023-08-17 12:59 | Hospitalist Progress Note ---
Date of Service August 17, 2023 Assessment & Plan (1) Acute recurrent pancreatitis: Plan: Admission lipase 2390. She has had multiple hospitalizations due to recurrent pancreatitis. She does have a history of pancreatic neuroendocrine carcinoma and previous Whipple's procedure in the [place] area. Gastroenterology consultation noted. Pantoprazole is the only medication that she is taking that has been associated with pancreatitis. This has been discontinued and she is now on famotidine. She underwent EGD on August 11 with normal results. Most recent MRCP was on June 16 of this year with unremarkable results. Continue n.p.o. status, parenteral narcotics for pain control, IV fluids. IV fluids have been tapered down and she is much more comfortable on Dilaudid after the dosage was uptitrated. Hopefully clear liquids can start tomorrow. (2) Hypokalemia: Plan: Corrected. Potassium has been added to the IV fluids. Serial labs (3) Hypertension: Plan: Stable. Continue current medical management (4) GERD (gastroesophageal reflux disease): Plan: Protonix has been discontinued. She is now on famotidine (5) Hypomagnesemia: Plan: Parenteral replacement. Serial labs Plan Hopefully home soon Admission and Anticipated Discharge Date Admission Date: August 16, 2023 Subjective Alert and oriented. is at the bedside. She is feeling better. Gastroenterology consultation noted. Lipase has improved to 450. Potassium corrected to 3.7. Protonix will not be restarted due to the potential that it is contributing to recurrent pancreatitis. She is now on famotidine. Magnesium replacement underway. IV fluids taper down. Hopefully clear liquids can start tomorrow, August 17. Review of Systems 2 Review of Systems: Constitutional-no fever or chills ENT-no blurred vision, no double vision, no epistaxis, no sore throat Respiratory-no cough, no wheezing, no shortness of breath Cardiac-no palpitations, no chest pain, no syncope GI-recurrent nausea and epigastric pain. No vomiting, diarrhea, melena, hematochezia -no urinary retention, no urinary incontinence, no dysuria, no hematuria Musculoskeletal-no joint pain, no muscle tenderness Skin-no bruising, no rashes, no pruritus Neuro-no isolated weakness, no paresthesia Psych-no depression, no anxiety Physical Exam 2 Physical Exam: General-alert and oriented x3, no fever, no chills HEENT-head atraumatic and normocephalic, pupils equal and reactive to light, extraocular muscles intact Neck-no lymphadenopathy or thyromegaly, trachea midline Chest-clear to auscultation. No rales, wheezing or rhonchi Cardiac-regular rate and rhythm, normal S1 and S2 Abdomen-normal bowel sounds, no hepatosplenomegaly. Tender to palpation in the epigastric region Extremities-no cyanosis, clubbing, or edema Neuro-cranial nerves II through XII intact, motor and sensory function within normal limits, strength symmetrical, no focal deficits Psych-depressed. Tearful Results & Data Results & Data Vital Signs (Past 12 Hours) Vital Signs Temp Pulse Pulse Resp BP Pulse Ox O2 Del Method 08/17/23 12:13 37.1 C 76 18 154/88 H 94 Room Air 08/17/23 11:10 36.7 C 61 16 158/76 H 97 Room Air 08/17/23 07:24 Room Air 08/17/23 07:07 36.4 C L 65 16 129/79 93 Room Air 08/17/23 07:03 56 L 08/17/23 03:26 36.6 C 64 18 145/75 H 93 Room Air Laboratory Results 08/17/23 05:29 08/17/23 05:29 PG Care Time/CCT Total # of Minutes Spent Total Time Spent with Patient: Total time spent is greater than 50% in coordination of care (as documented) at patient's floor/unit and/or counseling patient: Coding Level of Care Code 00746 SUB INP/OBS CARE 3/50MIN Diagnoses Acute recurrent pancreatitis K85.90 Hypokalemia E87.6 Hypertension I10 GERD (gastroesophageal reflux disease) K21.9 Hypomagnesemia E83.42
[2023-08-17] MEDS: MAGNESIUM SULFATE / D5W 1 GM/100 ML BAG IV SCH (13:31)
[2023-08-18] MEDS ORDERED: Nursing to Pharmacy Communication SCH (03:45)
[2023-08-18 06:21] LABS: BUN Creatinine Ratio 3.4 (10-20); Calcium 8.4 mg/dl (8.6-10.3); Creatinine Clr Calc Pharmacy 116.5 ml/min; Est GFR (African American) 122.8 ml/min; Magnesium 1.9 mg/dl (1.7-2.4)
[2023-08-18 06:22] LABS: Basophils # (auto) 0.01 K/uL (0.00-0.20); Basophils % (auto) 0.3 %; Eosinophils # (auto) 0.13 K/uL (0.00-0.50); Eosinophils % (auto) 4.5 %; Hematocrit (blood only) 28.1 % (37.0-47.0); Hemoglobin 9.4 g/dl (12.0-16.0); Immature Granulocytes # (auto) 0.01 K/uL (0.01-0.20); Immature Granulocytes % (auto) 0.3 %; Lymphocytes # (auto) 1.09 K/uL (1.20-3.40); Lymphocytes % (auto) 37.6 %; Mean Corpuscular Hemoglobin 30.9 pg (25.0-34.0); Mean Corpuscular Hgb Conc 33.5 g/dL (32.0-36.0); Mean Corpuscular Volume 92.4 fL (80.0-100.0); Mean Platelet Volume 10.9 fL (9.4-12.4); Monocytes # (auto) 0.29 K/uL (0.11-0.59); Neutrophils # (auto) 1.37 K/uL (1.40-6.50); Neutrophils % (auto) 47.3 %; Platelet Count 324 K/uL (130-400); RDW Standard Deviation 43.8 fL (36.4-46.3); Red Blood Count 3.04 M/uL (4.20-5.40)
--- NOTE | 2023-08-18 09:06 | Gastroenterology Progress Note ---
Date of Service August 18, 2023 Assessment & Plan (1) History of Whipple procedure: (2) Epigastric abdominal pain: (3) Acute recurrent pancreatitis: Plan -Will advance diet to low fat and resume Creon with PO 2 caps with meals and 1 cap with snacks. -Supportive care with IV fluids/analgesics/antiemetics. -Encouraged ambulation to reduce risk of ileus, given the bloating. -Recommend tertiary transfer to center with pancreatobiliary specialist if abdominal pain worsens with PO intake due to recurrent admissions and poor PO tolerance. -Follow up with oncologist upon d/c. Admission and Anticipated Discharge Date Admission Date: August 16, 2023 Supervising Physician Co-Signing Physician Notes Agree with LETICIA Maurice as above Interviewed and examined patient and agree with above Abd: Soft, tender, ND, +BS Continue current therapy and supportive care Advance to low fat diet as tolerated If she fails diet challenge, I would recommend tertiary referral at facility that performs Whipple Procedure, as she has had 3 inpatient evaluations at [facility] for recurrent acute pancreatitis with no obvious source. Subjective Patient reports improved abdominal pain, rated as 5/10 at present. Plan for diet advancement to clear liquids today. No nausea or vomiting, but reports some mild bloating. Review of Systems Review of Systems: All systems reviewed & are unremarkable except as noted in HPI & below Physical Exam Constitutional: well developed and well nourished Eyes: EOM intact bilaterally Neck: normal visual inspection Respiratory: normal respiratory effort Gastrointestinal (Abdomen): Inspection/Auscultation: normal bowel sounds Percussion/Palpation: + abdomen tender Skin: normal color Psychiatric: A+Ox3, euthymic affect Results & Data Results & Data Vital Signs (Past 12 Hours) Vital Signs Temp Pulse Pulse Resp BP Pulse Ox O2 Del Method 08/18/23 07:48 Room Air 08/18/23 07:32 36.8 C 60 16 158/84 H 96 Room Air 08/18/23 07:00 54 L 08/18/23 04:33 37.0 C 64 20 128/76 93 Room Air 08/17/23 23:39 36.7 C 64 20 133/80 93 Room Air 08/17/23 21:55 63 PG Care Time/CCT Total # of Minutes Spent Total Time Spent with Patient: Total time spent is greater than 50% in coordination of care (as documented) at patient's floor/unit and/or counseling patient: Coding Level of Care Code 51801 SUB INP/OBS CARE MIN Diagnoses History of Whipple procedure Z90.410; Z90.49 Epigastric abdominal pain R10.13 Acute recurrent pancreatitis K85.90
[2023-08-18] MEDS ORDERED: PANCREAZE (LIPASE 10,500U) CAP PO PRN (09:45)
--- NOTE | 2023-08-18 12:23 | Hospitalist Progress Note ---
Date of Service August 18, 2023 Assessment & Plan (1) Acute recurrent pancreatitis: Plan: Admission lipase 2390. This has trended down to 169 today, August 17. Clear liquids have been started. She has a history of pancreatic neuroendocrine carcinoma and previous Whipple's procedure in the [place] area. Gastroenterology consultation noted. Pantoprazole is the only medication that she is taking that has been associated with pancreatitis. This has been discontinued and she is now on famotidine. She underwent EGD on August 11 with normal results. Most recent MRCP was on June 16 of this year with unremarkable results. (2) Hypokalemia: Plan: Corrected. Potassium has been added to the IV fluids. Serial labs (3) Hypertension: Plan: Stable. Continue current medical management (4) GERD (gastroesophageal reflux disease): Plan: Protonix has been discontinued. She is now on famotidine (5) Hypomagnesemia: Plan: Corrected with parenteral replacement. Serial labs Plan Hopefully home soon. Possibly tomorrow, August 18. She will need to be transferred to a tertiary care center if her symptoms worsen Admission and Anticipated Discharge Date Admission Date: August 16, 2023 Subjective Alert and oriented. She is improving. Lipase has decreased further down to 169. Will allow clear liquids and taper down IV fluids again today, August 17. Parenteral Dilaudid is controlling her pain symptoms. Mild hypokalemia has been corrected. Hypomagnesemia has also been corrected. Gastroenterology consultation and recommendations noted. Protonix has been switched to famotidine. Hopefully she can go home soon. If she worsens, she will need to be transferred to a tertiary care center. Review of Systems 2 Review of Systems: Constitutional-no fever or chills ENT-no blurred vision, no double vision, no epistaxis, no sore throat Respiratory-no cough, no wheezing, no shortness of breath Cardiac-no palpitations, no chest pain, no syncope GI-recurrent nausea and epigastric pain. No vomiting, diarrhea, melena, hematochezia -no urinary retention, no urinary incontinence, no dysuria, no hematuria Musculoskeletal-no joint pain, no muscle tenderness Skin-no bruising, no rashes, no pruritus Neuro-no isolated weakness, no paresthesia Psych-no depression, no anxiety Physical Exam 2 Physical Exam: General-alert and oriented x3, no fever, no chills HEENT-head atraumatic and normocephalic, pupils equal and reactive to light, extraocular muscles intact Neck-no lymphadenopathy or thyromegaly, trachea midline Chest-clear to auscultation. No rales, wheezing or rhonchi Cardiac-regular rate and rhythm, normal S1 and S2 Abdomen-normal bowel sounds, no hepatosplenomegaly. Epigastric tenderness has improved. Extremities-no cyanosis, clubbing, or edema Neuro-cranial nerves II through XII intact, motor and sensory function within normal limits, strength symmetrical, no focal deficits Psych-depressed. Tearful Results & Data Results & Data Vital Signs (Past 12 Hours) Vital Signs Temp Pulse Pulse Resp BP Pulse Ox O2 Del Method 08/18/23 11:21 36.7 C 63 16 170/90 H 97 Room Air 08/18/23 07:48 Room Air 08/18/23 07:32 36.8 C 60 16 158/84 H 96 Room Air 08/18/23 07:00 54 L 08/18/23 04:33 37.0 C 64 20 128/76 93 Room Air Laboratory Results 08/18/23 05:23 08/18/23 05:23 PG Care Time/CCT Total # of Minutes Spent Total Time Spent with Patient: Total time spent is greater than 50% in coordination of care (as documented) at patient's floor/unit and/or counseling patient: Coding Level of Care Code 89902 SUB INP/OBS CARE 3/50MIN Diagnoses Acute recurrent pancreatitis K85.90 Hypokalemia E87.6 Hypertension I10 GERD (gastroesophageal reflux disease) K21.9 Hypomagnesemia E83.42
[2023-08-18] MEDS: PANCREAZE (LIPASE 10,500U) CAP PO SCH (12:28)
[2023-08-18] MEDS ORDERED: NON-FORMULARY PATIENT'S OWN MED SCH (14:00)
[2023-08-19 07:03] LABS: Basophils # (auto) 0.02 K/uL (0.00-0.20); Basophils % (auto) 0.5 %; Eosinophils # (auto) 0.18 K/uL (0.00-0.50); Eosinophils % (auto) 4.1 %; Hematocrit (blood only) 31.4 % (37.0-47.0); Hemoglobin 10.1 g/dl (12.0-16.0); Immature Granulocytes # (auto) 0.01 K/uL (0.01-0.20); Immature Granulocytes % (auto) 0.2 %; Lymphocytes # (auto) 0.57 K/uL (1.20-3.40); Lymphocytes % (auto) 13.1 %; Mean Corpuscular Hgb Conc 32.2 g/dL (32.0-36.0); Mean Corpuscular Volume 93.2 fL (80.0-100.0); Mean Platelet Volume 10.4 fL (9.4-12.4); Monocytes # (auto) 0.45 K/uL (0.11-0.59); Monocytes % (auto) 10.3 %; Neutrophils # (auto) 3.12 K/uL (1.40-6.50); Neutrophils % (auto) 71.8 %; Platelet Count 357 K/uL (130-400); RDW Coefficient of Variation 12.9 % (11.5-14.5); RDW Standard Deviation 44.1 fL (36.4-46.3); Red Blood Count 3.37 M/uL (4.20-5.40); White Blood Count 4.35 K/ul (4.8-10.8)
[2023-08-19 07:21] LABS: Calcium 8.9 mg/dl (8.6-10.3); Creatinine Clr Calc Pharmacy 101.4 ml/min; Est GFR (African American) 117.1 ml/min; Est GFR (Non-African American) 101.1 ml/min; Magnesium 1.8 mg/dl (1.7-2.4)
--- NOTE | 2023-08-19 10:36 | Communication Note ---
Date of Service: August 19, 2023 Patient reports improved abdominal pain but some nausea this morning. Tolerating diet but she is eating a very bland diet with soft consistency. Lipase normal at 33. GI sign off. Patient is going to discuss with her oncologist a tertiary referral upon discharge.
--- NOTE | 2023-08-19 12:18 | Hospitalist Progress Note ---
Date of Service August 19, 2023 Assessment & Plan (1) Acute recurrent pancreatitis: Plan: Admission lipase 2390. This has now normalized. Diet has been advanced and IV fluids discontinued. She has a history of pancreatic neuroendocrine carcinoma and previous Whipple's procedure in the [place] area. Gastroenterology consultation noted. Pantoprazole is the only medication that she is taking that has been associated with pancreatitis. This has been discontinued and she is now on famotidine. She underwent EGD on August 11 with normal results. Most recent MRCP was on June 16 of this year with unremarkable results. She understands that if her symptoms recur after discharge she should go to a tertiary care center (2) Hypokalemia: Plan: Corrected. Serial labs (3) Hypertension: Plan: Stable. Continue current medical management (4) GERD (gastroesophageal reflux disease): Plan: Protonix has been discontinued. She is now on famotidine (5) Hypomagnesemia: Plan: Corrected with parenteral replacement. Serial labs Plan Anticipate discharge tomorrow, August 19. She understands that if her symptoms recur after discharge she should go to a tertiary care center Admission and Anticipated Discharge Date Admission Date: August 16, 2023 Subjective Alert and oriented. Occasional intermittent nausea. Lipase is now normal at 33. Potassium corrected to 4.0 and magnesium to 1.8. IV fluids have been discontinued and diet has been advanced. Hopefully she can go home tomorrow, August 19 Review of Systems 2 Review of Systems: Constitutional-no fever or chills ENT-no blurred vision, no double vision, no epistaxis, no sore throat Respiratory-no cough, no wheezing, no shortness of breath Cardiac-no palpitations, no chest pain, no syncope GI-intermittent nausea. No vomiting. No diarrhea, melena, hematochezia -no urinary retention, no urinary incontinence, no dysuria, no hematuria Musculoskeletal-no joint pain, no muscle tenderness Skin-no bruising, no rashes, no pruritus Neuro-no isolated weakness, no paresthesia Psych-no depression, no anxiety Physical Exam 2 Physical Exam: General-alert and oriented x3, no fever, no chills HEENT-head atraumatic and normocephalic, pupils equal and reactive to light, extraocular muscles intact Neck-no lymphadenopathy or thyromegaly, trachea midline Chest-clear to auscultation. No rales, wheezing or rhonchi Cardiac-regular rate and rhythm, normal S1 and S2 Abdomen-normal bowel sounds, no hepatosplenomegaly. Epigastric tenderness has improved. Extremities-no cyanosis, clubbing, or edema Neuro-cranial nerves II through XII intact, motor and sensory function within normal limits, strength symmetrical, no focal deficits Psych-depressed. Tearful Results & Data Results & Data Vital Signs (Past 12 Hours) Vital Signs Temp Pulse Pulse Resp BP Pulse Ox O2 Del Method 08/19/23 11:37 36.8 C 63 16 148/84 H 95 Room Air 08/19/23 11:10 67 08/19/23 08:11 37.1 C 61 16 151/83 H 96 Room Air 08/19/23 05:31 37.2 C 73 20 150/87 H 92 Room Air Laboratory Results 08/19/23 06:31 08/19/23 06:31 PG Care Time/CCT Total # of Minutes Spent Total Time Spent with Patient: Total time spent is greater than 50% in coordination of care (as documented) at patient's floor/unit and/or counseling patient: Coding Level of Care Code 19691 SUB INP/OBS CARE 2/35MIN Diagnoses Acute recurrent pancreatitis K85.90 Hypokalemia E87.6 Hypertension I10 GERD (gastroesophageal reflux disease) K21.9 Hypomagnesemia E83.42
[2023-08-20 06:48] LABS: Basophils # (auto) 0.01 K/uL (0.00-0.20); Basophils % (auto) 0.3 %; Eosinophils # (auto) 0.14 K/uL (0.00-0.50); Eosinophils % (auto) 3.8 %; Hematocrit (blood only) 35.1 % (37.0-47.0); Hemoglobin 11.4 g/dl (12.0-16.0); Immature Granulocytes # (auto) 0.01 K/uL (0.01-0.20); Immature Granulocytes % (auto) 0.3 %; Lymphocytes # (auto) 0.97 K/uL (1.20-3.40); Lymphocytes % (auto) 26.6 %; Mean Corpuscular Hemoglobin 30.3 pg (25.0-34.0); Mean Corpuscular Hgb Conc 32.5 g/dL (32.0-36.0); Mean Corpuscular Volume 93.4 fL (80.0-100.0); Mean Platelet Volume 10.8 fL (9.4-12.4); Monocytes # (auto) 0.52 K/uL (0.11-0.59); Monocytes % (auto) 14.2 %; Neutrophils % (auto) 54.8 %; Platelet Count 380 K/uL (130-400); RDW Coefficient of Variation 12.8 % (11.5-14.5); RDW Standard Deviation 43.8 fL (36.4-46.3); Red Blood Count 3.76 M/uL (4.20-5.40); White Blood Count 3.65 K/ul (4.8-10.8)
[2023-08-20 06:55] LABS: BUN Creatinine Ratio 6.6 (10-20); Calcium 9.6 mg/dl (8.6-10.3); Creatinine Clr Calc Pharmacy 88.3 ml/min; Est GFR (African American) 104.5 ml/min; Est GFR (Non-African American) 90.2 ml/min; Potassium 4.2 mmol/L (3.5-5.1)
--- NOTE | 2023-08-20 08:52 | Hospitalist Progress Note ---
Date of Service August 20, 2023 Assessment & Plan (1) Acute recurrent pancreatitis: Plan: Admission lipase 2390. This has now normalized. Diet has been advanced and IV fluids discontinued. She has a history of pancreatic neuroendocrine carcinoma and previous Whipple's procedure in the [place] area. Gastroenterology consultation noted. Pantoprazole is the only medication that she is taking that has been associated with pancreatitis. This has been discontinued and she is now on famotidine. She underwent EGD on August 11 with normal results. Most recent MRCP was on June 16 of this year with unremarkable results. She understands that if her symptoms recur after discharge she should go to a tertiary care center (2) Hypokalemia: Plan: Corrected. Serial labs (3) Hypertension: Plan: Stable. Continue current medical management (4) GERD (gastroesophageal reflux disease): Plan: Protonix has been discontinued. She is now on famotidine (5) Hypomagnesemia: Plan: Corrected with parenteral replacement. Serial labs Plan Anticipate discharge tomorrow, August 19. She understands that if her symptoms recur after discharge she should go to a tertiary care center Admission and Anticipated Discharge Date Admission Date: August 16, 2023 Results & Data Results & Data Vital Signs (Past 12 Hours) Vital Signs Temp Pulse Pulse Resp BP Pulse Ox O2 Del Method 08/20/23 08:27 98.4 F 67 18 137/89 95 Room Air 08/20/23 07:08 59 L 08/20/23 04:00 98.2 F 63 18 144/84 H 95 Room Air 08/19/23 23:00 98.1 F 65 18 145/87 H 96 Room Air 08/19/23 22:00 61 PG Care Time/CCT Total # of Minutes Spent Total Time Spent with Patient: Total time spent is greater than 50% in coordination of care (as documented) at patient's floor/unit and/or counseling patient: Coding Diagnoses Acute recurrent pancreatitis K85.90 Hypokalemia E87.6 Hypertension I10 GERD (gastroesophageal reflux disease) K21.9 Hypomagnesemia E83.42
[2023-08-20] MEDS: ONDANSETRON 4 MG OD TAB PO STA (11:06)
[2023-08-20] MEDS: traMADol HCL 50 MG TABLET PO ONE (11:38)
--- NOTE | 2023-08-20 14:09 | Discharge Summary ---
Discharge Summary Date of Service August 20, 2023 Notes For Next Care Provider Patient has marked anxiety being concerned about recurrence of abdominal discomfort. Prior to going home and seem to be improved with tramadol and Zofran ODT Additional changes her Prilosec was changed to Pepcid due to slight association of PPIs with pancreatitis Patient will need coordination referral to hepatobiliary service at [facility] as she has left the [place] area and wishes to establish care likely she may benefit from a possible ERCP or common bile duct manometry testing Medication Changes From Visit Amlodipineheld Pepcid begun in place of PPI Tramadol and ODT Zofran was given to control symptoms Admission HPI Per Admitting Provider 53 year old female with a past medical history of SLE, recurrent acute pancreatitis, 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 She states that she continued to have back pain; mid thoracic between scapula. Notes that prior to leaving she did eat a chicken salad sandwich. When she got home she said that pain started to get worse, first with back pain and then with epigastric. Tried Tylenol and oxycodone without relief which prompted her to come back in. In ED lipase= 2390, CRP= 2.51, ESR= 47. S/p 2L NSS Principal Dx & Hospital Course #1 = Principal Diagnosis (1) Acute recurrent pancreatitis: Admission lipase 2390. This has now normalized. Diet has been advanced and IV fluids discontinued. She has a history of pancreatic neuroendocrine carcinoma and previous Whipple's procedure in the [place] area. Gastroenterology consultation noted. Pantoprazole is the only medication that she is taking that has been associated with pancreatitis. This has been discontinued and she is now on famotidine. She underwent EGD on August 11 with normal results. Most recent MRCP was on June 16 of this year with unremarkable results. She understands that if her symptoms recur after discharge she should go to a tertiary care center attempts to coordinate with primary care outpatient to [facility] which is her choice (2) Hypertension: Stable. Blood pressure been controlled off amlodipine this was not continued at time of discharge Hypokalemia/hypomagnesemia has resolved with repletion (3) GERD (gastroesophageal reflux disease): Protonix has been discontinued. She is now on famotidine Updated Medication List Medication Instructions Recorded Confirmed Type Lactobacillus acidophilus 1 1,000 mmu cells PO DAILY 03/04/23 08/16/23 History billion cell capsule (Probiotic Gold Acidophilus) cholecalciferol (vitamin D3) 50 50 mcg PO DAILY 03/04/23 08/16/23 History mcg (2,000 unit) capsule krill oil 500 mg capsule 500 mg PO BID 03/04/23 08/16/23 History eepgdi-diwgsijx-cevlloh 2 cap PO QID 03/04/23 08/16/23 History 36,000-114,000-180,000 unit capsule,delay rel (Creon) multivitamin (Multiple Vitamins 1 tab PO DAILY 03/04/23 08/16/23 History tablet) amlodipine 5 mg tablet 5 mg PO .once daily #90 tabs 06/08/23 08/16/23 Rx acetaminophen 500 mg tablet 500 mg PO Q6H PRN Pain 07/08/23 08/16/23 History (Tylenol Extra Strength) oxycodone 5 mg tablet 5 mg PO Q6H PRN pain #14 tabs 08/15/23 08/16/23 Rx famotidine 40 mg tablet 40 mg PO DAILY #30 tabs 08/20/23 Rx ondansetron 4 mg disintegrating 4 mg PO TID PRN nausea and 08/20/23 Rx tablet vomiting 4 days #20 tabs tramadol 50 mg tablet 50 - 100 mg (1 - 2 x 50 mg) PO Q6H 08/20/23 Rx PRN pain #20 tabs Hospital Stay Data Consultations 08/16/23 00:13 ED Decision to Admit Stat 08/16/23 02:08 Consult Gastroenterology Routine 08/20/23 14:05 Consult [facility] media consultant Routine Pending Results Patient Have Any Pending Studies at Discharge: No Discharge Instructions Given to Patient (Per Discharging Provider) Please advance diet as you can, consider low fat if able Total Time Total Time Spent Total Time Spent (In Minutes): It required greater than 30 minutes to prepare this patient for discharge. Coding Level of Care Code 30114 INP/OBS DISCH >30 MIN Diagnoses Acute recurrent pancreatitis K85.90 Hypertension I10 GERD (gastroesophageal reflux disease) K21.9
== END 2023-08-20 15:34 | disposition home or self-care (01) | DRG 440 ==
LOC: ED 21:26 → SUATTDRO 08-16 01:32 → EDINP 08-16 01:32 → 2N 08-16 02:18